=== PATIENT | female | born 1955 | race Caucasian/White ===

== ENCOUNTER 2023-05-06 13:49 | Outpatient (CLI) | payer MEDICARE | END 2023-05-06 23:59 | disposition critical access hospital (66) | LOC: EMS 13:49 | DX: Z04.6 Encounter for general psychiatric examination, requested by authority (principal); R45.851 Suicidal ideations | CPT/HCPCS: A0425; A0429 ==

== ENCOUNTER 2023-05-06 14:08 | Emergency (ER) | payer MEDICARE ==
--- NOTE | 2023-05-06 14:27 | ED Physician Documentation ---
History of Present Illness - Stated complaint Stated Complaint: MHE - Chief complaint Chief Complaint: MHE - Additonal information Additional information: 67-year-old female called EMS and come to the hospital today because she has been feeling down. States that she wants to get back to her baseline level of function. Reportedly she was prescribed meloxicam for arthritis over a month ago. When she began taking it she had severe diarrhea. Therefore she stopped taking the meloxicam and all her other usual medications. Patient states that she was on Wellbutrin, BuSpar and another unknown medication for blood pressure. She denies that she wants to hurt herself or anybody else. On evaluation she is alert though disheveled and has poor hygiene. She endorses tobacco use but no alcohol or illicit drug use. States that she lives alone. States that she does have a home but admits to being transient over the last few years. She has never been seen at [facility] before. Review of Systems Constitutional: denies: Fever Ears: reports: Reviewed and negative Throat: reports: Reviewed and negative Cardiac: reports: Reviewed and negative Respiratory: reports: Reviewed and negative Skin: reports: Reviewed and negative Psychiatric: reports: Depressed. denies: Suicidal, Homicidal, Hallucinations, Delusions, Anxiety Endocrine: reports: Reviewed and negative Immunocompromised: reports: Reviewed and negative PD PAST MEDICAL HISTORY - Present Medications Home Medications: Ambulatory Orders Medication Instructions Recorded Confirmed Apixaban [Eliquis] 2.5 mg PO BID #60 tablet 05/06/23 Buspirone HCl 15 mg PO DAILY 05/06/23 05/06/23 Metoprolol Succinate [Toprol Xl] 25 mg PO DAILY #30 tablet 05/06/23 buPROPion HCL [Bupropion HCl Sr] 150 mg PO BID 05/06/23 05/06/23 buPROPion HCL [Bupropion Xl] 150 mg PO DAILY #30 tab 05/06/23 busPIRone [Buspar] 15 mg PO DAILY #90 tablet 05/06/23 dilTIAZem HCL [Diltiazem 24Hr ER 120 mg PO DAILY #30 tab 05/06/23 ([place])] dilTIAZem HCL [Diltiazem 24Hr ER] 120 mg PO DAILY 05/06/23 05/06/23 - Allergies Allergies/Adverse Reactions: Allergies Allergy/AdvReac Type Severity Reaction Status Date / Time Sulfa (Sulfonamide Allergy Unknown Verified 05/06/23 14:14 Antibiotics) meloxicam AdvReac Unknown Verified 05/06/23 14:14 PD ED PE NORMAL - General General: Alert and oriented X 3, No acute distress. No: Well developed/nourishe d (Appears disheveled poor hygiene) - HEENT HEENT: Atraumatic, Moist mucous membranes - Neck Neck: Supple, no meningeal sign, No adenopathy - Cardiac Cardiac: No murmur. No: RRR (irregularly irregular) - Respiratory Respiratory: No respiratory distress, Clear bilaterally - Abdomen Abdomen: Normal bowel sounds - Derm Derm: Normal color, Warm and dry, No rash - Extremities Extremities: No deformity - Neuro Neuro: Alert and oriented X 3, thermodynamic physicist 2-12 intact Eye Opening: Spontaneous Motor: Obeys Commands Verbal: Oriented GCS Score: 15 - Psych Psych: No: Normal affect (Reports feeling depressed though she engages with this provider easily. Does not desire to be hospitalized. Denies thoughts of self harm to herself or others.) Results - Vitals Vitals: Vital Signs - 24 hr 05/06/23 05/06/23 05/06/23 14:14 16:28 16:54 Temperature 36.4 C L Heart Rate 53 L 105 H 133 H Respiratory 18 20 23 Rate Blood Pressure 154/93 H 130/101 H 144/78 H O2 Saturation 97 98 100 05/06/23 17:55 Temperature Heart Rate 106 H Respiratory 19 Rate Blood Pressure 123/95 H O2 Saturation 98 Oxygen O2 Source Room air - EKG (time done) 1444 EKG releavant findings:: EKG personally interpreted by author of this note. Relevant findings are: Rate: Rate (enter#) (121) Rhythm: Atrial fibrillation Intervals: No: Prolonged QT QRS: Poor R wave progression Ischemia: Non specific changes Compare to prior EKG: Old EKG unavailable Computer interpretation: Agree with computer - Labs Labs: Laboratory Tests 05/06/23 05/06/23 05/06/23 14:35 14:35 14:35 WBC 10.3 RBC 3.69 L Hgb 11.2 L Hct 33.7 L MCV 91.3 MCH 30.4 MCHC 33.2 RDW 13.5 Plt Count 427 MPV 9.7 Neut # (Auto) 8.1 H Lymph # (Auto) 0.9 L [place] # (Auto) 1.0 Eos # (Auto) 0.1 Baso # (Auto) 0.1 Absolute Nucleated RBC 0.00 Nucleated RBC % 0.0 Sodium 140 Potassium 2.4 L* Chloride 100 L Carbon Dioxide 30 Anion Gap 10.0 BUN 39 H Creatinine 1.9 H Estimated GFR (MDRD) 26 L Glucose 114 H Calcium 9.1 Magnesium 1.6 L Total Bilirubin 0.3 AST 12 ALT 15 Alkaline Phosphatase 81 Total Creatine Kinase 74 B-Natriuretic Peptide Total Protein 7.2 Albumin 3.4 Globulin 3.8 Albumin/Globulin Ratio 0.9 L Lipase 7 L TSH 1.00 Salicylates < 1.5 Acetaminophen 0.1 Ethyl Alcohol < 10.0 05/06/23 14:35 WBC RBC Hgb Hct MCV MCH MCHC RDW Plt Count MPV Neut # (Auto) Lymph # (Auto) [place] # (Auto) Eos # (Auto) Baso # (Auto) Absolute Nucleated RBC Nucleated RBC % Sodium Potassium Chloride Carbon Dioxide Anion Gap BUN Creatinine Estimated GFR (MDRD) Glucose Calcium Magnesium Total Bilirubin AST ALT Alkaline Phosphatase Total Creatine Kinase B-Natriuretic Peptide 113 H Total Protein Albumin Globulin Albumin/Globulin Ratio Lipase TSH Salicylates Acetaminophen Ethyl Alcohol PD Medical Decision Making - ED course Complexity details: reviewed results, re-evaluated patient, d/w patient ED course: 67-year-old female presents emergency department requesting help to get back to her baseline health. Historically she has been on BuSpar, buspirone and Diltiazem. 1 month ago she stopped taking all of her medications because when she took methocarbamol or meloxicam it gave her diarrhea. Patient is a poor historian. She states she only has a history of high blood pressure and depression. She appears to have A-fib on the monitor and though diltiazem would have been appropriately prescribed for A-fib she denies any history of this. She also is not on a blood thinner. Here in the emergency department she denied any thoughts of self-harm or harm to herself. She thought it would be helpful if we could represcribe her usual medications but had difficulty getting medications filled because of insurance. She was seen by social work and ultimately we were able to get prescriptions sent to her [facility] pharmacy. Here in the emergency department she does have A-fib with a rate that is variable of 110-130. I did obtain CBC, electrolytes salicylates alcohol and a BNP. Per my interpretation she has a mild anemia with a hemoglobin of 11.2. Her chemistry reveals a potassium of 2.4. Here in the emergency department she was repleted with a total of 75 mill equivalents of potassium. She does have a BUN of 39 creatinine of 1.9 and a GFR of 26. There are no baseline labs for us to compare. Her mag is mildly low at 1.6 but her BNP is 113. Chest x-ray does not show indications of heart failure and there is no peripheral edema. Initially I did give the patient her single dose of diltiazem 120 mg orally and this did not reduce her heart rate. She then received 10 mg of carvedilol IV which slowed her heart rate to 109 but after about an hour or so she was back up to 130. I then repeated the dose at 20 mg IV and gave her 25 mg of Metroprolol succinate orally. Following this her heart rate was more consistently in the low 100s. I discussed the options of admitting versus discharge for A-fib and the patient prefers at this time to be discharged home. She will be started on Eliquis. She reports that she has follow-up with her primary care doctor on the of this month at that time it would be appropriate for her to receive a cardiology referral. She is discharged home with usual emergent return precautions discussed for worsening symptoms. Departure - Departure Disposition: 01 Home, Self Care Clinical Impression: Atrial fibrillation Qualifiers: Atrial fibrillation type: unspecified Qualified Code(s): I48.91 - Unspecified atrial fibrillation CKD (chronic kidney disease) stage 3, GFR 30-59 ml/min Qualifiers: Chronic kidney disease stage 3 subtype: stage 3b (GFR 30-44) Qualified Code(s): N18.32 - Chronic kidney disease, stage 3b Condition: Stable Record reviewed to determine appropriate education?: Yes Instructions: Apixaban oral tablets, Atrial Fibrillation Dc Follow-Up: ALTAGRACIA DUMAS MD [Primary Care Provider] - Prescriptions: buPROPion HCL [Bupropion Xl] 150 mg PO DAILY #30 tab busPIRone [Buspar] 15 mg PO DAILY #90 tablet dilTIAZem HCL [Diltiazem 24Hr ER ([place])] 120 mg PO DAILY #30 tab Apixaban [Eliquis] 2.5 mg PO BID #60 tablet Metoprolol Succinate [Toprol Xl] 25 mg PO DAILY #30 tablet Comments: You have been found to have atrial fibrillation. We have resumed your diltiazem 120 mg daily. We have also added Metroprolol 25 mg daily. Both of these help control your heart rate in atrial fibrillation. You do need to get referral to a repatcher And Dr. Lim should make that referral when you see him on the . I have refilled your buspirone and your bupropion. Because you are in atrial fibrillation, you are at higher risk to have strokes and we have started you on a blood thinner called Eliquis. You will take this twice daily. If you have any falls or trauma, strike your head, develop any sudden severe headache, have black or bloody stools, or have any unexplained bleeding you must return immediately to the ER. Forms: PCP List Discharge Date/Time: 05/06/23 18:29
[2023-05-06 14:43] LABS: BASOPHILS # (AUTO) 0.1 10^3/uL (0.0-0.1); BASOPHILS % (AUTO) 0.6 %; EOSINOPHILS # (AUTO) 0.1 10^3/uL (0.0-0.7); EOSINOPHILS % (AUTO) 1.4 %; HCT - HEMATOCRIT 33.7 % (37.0-47.0); HGB - HEMOGLOBIN 11.2 g/dL (12.0-16.0); LYMPHOCYTES # (AUTO) 0.9 10^3/uL (1.5-3.5); LYMPHOCYTES % (AUTO) 8.6 %; MEAN CORPUSCULAR HEMOGLOBIN 30.4 pg (27.0-31.0); MEAN CORPUSCULAR HGB CONC 33.2 g/dL (32.0-36.0); MEAN CORPUSCULAR VOLUME 91.3 fL (81.0-99.0); MEAN PLATELET VOLUME 9.7 fL (7.9-10.8); MONOCYTES % (AUTO) 10.1 %; NEUTROPHILS # (AUTO) 8.1 10^3/uL (1.5-6.6); NEUTROPHILS % (AUTO) 78.3 %; PLT - PLATELET COUNT 427 10^3/uL (130-450); RED BLOOD COUNT 3.69 10^6/uL (4.20-5.40); RED CELL DISTRIBUTION WIDTH 13.5 % (12.0-15.0); WHITE BLOOD COUNT 10.3 x10^3/uL (4.8-10.8)
[2023-05-06 14:57] LABS: ACETAMINOPHEN 0.1 ug/mL; ALBUMIN 3.4 g/dL (3.2-5.5); CK- CREATINE KINASE 74 IU/L (30-223); ETOH - ETHANOL < 10.0 mg/dL; MAGNESIUM 1.6 mg/dL (1.7-2.3)
[2023-05-06] MEDS ORDERED: diltiaZEM CD 120 MG CAPSULE PO STA (14:59)
[2023-05-06 15:11] LABS: ALBUMIN/GLOBULIN RATIO 0.9 (1.0-2.2); ALKALINE PHOSPHATASE 81 IU/L (42-121); ALT ALANINE AMINOTRANSFERASE 15 IU/L (10-60); AST ASPARTATE AMINOTRANSFERASE 12 IU/L (10-42); BILIRUBIN,TOTAL 0.3 mg/dL (0.2-1.0); BUN - BLOOD UREA NITROGEN 39 mg/dL (6-20); CALCIUM 9.1 mg/dL (8.5-10.3); CARBON DIOXIDE - CO2 30 mmol/L (21-32); CHLORIDE 100 mmol/L (101-111); CREATININE 1.9 mg/dL (0.6-1.3); GFR - MDRD 26 (>89); GLUCOSE 114 mg/dL (74-104); SODIUM 140 mmol/L (135-145); TOTAL PROTEIN 7.2 g/dL (6.4-8.9)
[2023-05-06 15:12] LABS: LIPASE 7 U/L (11-82); POTASSIUM 2.4 mmol/L (3.5-4.5); SALICYLATE < 1.5 mg/dL
[2023-05-06] MEDS ORDERED: diltiaZEM INJ 5 MG/ML VIAL IVP STA (15:42)
[2023-05-06] MEDS ORDERED: POTASSIUM BICARB 25 MEQ TABLET PO STA ×2 (15:42→17:12)
[2023-05-06] MEDS ORDERED: NICOTINE 14 MG PATCH TOP STA (16:35)
[2023-05-06] MEDS: diltiaZEM INJ 5 MG/ML VIAL IVP STA ×3 (17:03→17:04)
[2023-05-06] MEDS ORDERED: diltiaZEM INJ 5 MG/ML VIAL ONE (17:09)
[2023-05-06] MEDS ORDERED: METOPROLOL SUCCINATE 25 MG TABLET PO STA (17:12)
--- NOTE | 2023-05-06 17:43 | XRAY Report ---
PROCEDURE: Chest 1 View X-Ray INDICATIONS: a fib TECHNIQUE: One view of the chest was acquired. COMPARISON: None. FINDINGS: Surgical changes and devices: Left IJ Mediport. Lungs and pleura: Mild kyphosis. Patient chin obscures medial lung apices. Mild horizontal scarring at the lateral left lung base. The visible lung brandon are otherwise clear. Mediastinum: No significant central venous congestion. Mild cardiomegaly. Normal aortic contour. Bones and chest wall: No suspicious bony lesions. Overlying soft tissues appear unremarkable. IMPRESSION: 1. Mild cardiomegaly without radiographic findings of acute CHF. Correlate with BNP. Reviewed by: Krupa Phan MD on 05/06/2023 5:42 PM PDT Approved by: Krupa Phan MD on 05/06/2023 5:42 PM PDT Station ID: [id number]
[2023-05-06 17:58] VITALS: BP 123/95
[2023-05-07] MEDS ORDERED: METOPROLOL SUCCINATE 25 MG TABLET PO SCH (09:00)
== END 2023-05-06 18:29 | disposition home or self-care (01) ==
LOC: ED 14:08
DX: I48.91 Unspecified atrial fibrillation (principal); E87.6 Hypokalemia; N18.32 Chronic kidney disease, stage 3b
CPT/HCPCS: 36415; 71045; 80053; 80307; 82550; 83690; 83735; 83880; 84443; 85025; 93005; 96374; 96376; 99284; A9270; G0480; 80320; 80329

== ENCOUNTER 2023-05-31 17:52 | Outpatient (CLI) | payer MEDICARE | END 2023-05-31 23:59 | disposition critical access hospital (66) | LOC: EMS 17:52 | DX: R45.851 Suicidal ideations (principal) | CPT/HCPCS: A0425; A0429 ==

== ENCOUNTER 2023-05-31 17:58 | Emergency (ER) | payer MEDICARE ==
[2023-05-31 19:04] LABS: BASOPHILS # (AUTO) 0.1 10^3/uL (0.0-0.1); BASOPHILS % (AUTO) 0.4 %; EOSINOPHILS # (AUTO) 0.1 10^3/uL (0.0-0.7); EOSINOPHILS % (AUTO) 0.6 %; HGB - HEMOGLOBIN 10.5 g/dL (12.0-16.0); LYMPHOCYTES # (AUTO) 0.9 10^3/uL (1.5-3.5); LYMPHOCYTES % (AUTO) 7.3 %; MEAN CORPUSCULAR HEMOGLOBIN 30.6 pg (27.0-31.0); MEAN CORPUSCULAR HGB CONC 32.8 g/dL (32.0-36.0); MEAN CORPUSCULAR VOLUME 93.3 fL (81.0-99.0); MEAN PLATELET VOLUME 11.2 fL (7.9-10.8); MONOCYTES # (AUTO) 1.2 10^3/uL (0.0-1.0); MONOCYTES % (AUTO) 9.5 %; NEUTROPHILS % (AUTO) 81.8 %; PLT - PLATELET COUNT 316 10^3/uL (130-450); RED BLOOD COUNT 3.43 10^6/uL (4.20-5.40); RED CELL DISTRIBUTION WIDTH 13.9 % (12.0-15.0); WHITE BLOOD COUNT 12.3 x10^3/uL (4.8-10.8)
[2023-05-31 19:19] LABS: THYROID STIMULATING HORMONE 1.39 uIU/mL (0.34-5.60)
[2023-05-31 19:34] LABS: ACETAMINOPHEN 0.1 ug/mL; ALBUMIN 3.5 g/dL (3.2-5.5); CK- CREATINE KINASE 83 IU/L (30-223); ETOH - ETHANOL < 10.0 mg/dL; MAGNESIUM 1.4 mg/dL (1.7-2.3)
[2023-05-31 19:35] LABS: POTASSIUM 2.4 mmol/L (3.5-4.5)
[2023-05-31 19:36] LABS: ALBUMIN/GLOBULIN RATIO 0.9 (1.0-2.2); ALKALINE PHOSPHATASE 99 IU/L (42-121); ALT ALANINE AMINOTRANSFERASE 15 IU/L (10-60); AST ASPARTATE AMINOTRANSFERASE 17 IU/L (10-42); BILIRUBIN,TOTAL 0.3 mg/dL (0.2-1.0); BUN - BLOOD UREA NITROGEN 17 mg/dL (6-20); CALCIUM 9.2 mg/dL (8.5-10.3); CARBON DIOXIDE - CO2 27 mmol/L (21-32); CHLORIDE 97 mmol/L (101-111); CREATININE 1.5 mg/dL (0.6-1.3); GFR - MDRD 34 (>89); GLUCOSE 107 mg/dL (74-104); SALICYLATE < 1.5 mg/dL; SODIUM 136 mmol/L (135-145); TOTAL PROTEIN 7.6 g/dL (6.4-8.9)
[2023-05-31 19:38] LABS: LIPASE 4 U/L (11-82)
[2023-05-31] MEDS ORDERED: POTASSIUM CHLORIDE 20 MEQ/15 ML UDC PO STA (20:08)
[2023-05-31] MEDS ORDERED: POTASSIUM CHLOR 10 MEQ/100 ML 10 MEQ/100 ML BAG IV STA (20:08)
[2023-05-31] MEDS ORDERED: MAGNESIUM SULFATE 2 GRAM 2 GM/50 ML BAG IV ONE (20:09)
[2023-05-31] MEDS ORDERED: ONDANSETRON 4 MG/2 ML VIAL IVP STA (20:15)
--- NOTE | 2023-05-31 20:19 | ED Physician Documentation ---
PD HPI MHE - Stated complaint Stated Complaint: SI - Chief complaint Chief Complaint: MHE - History obtained from History obtained from: Patient - Additional information Additional information: 67yF with pmh depression p/w anxiety and passive SI X 5-6 months with associated nausea and decreased appetite. patient states she had been on antidepressants but then added meloxicam and had trouble with med interactions and stopped her antidepressants. denies active plan. denies HI or AVH. denies fever, abd pain, urinary sx. 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 : None HEENT: None Psych: Depression, Anxiety, ADD/ADHD Musculoskeletal: Osteoarthritis Derm: None - Past Surgical History Past Surgical History: Yes General: Cholecystectomy Ortho: Knee replacement /LIQUID NATURAL GAS PLANT OPERATOR: Mastectomy HEENT: Cataracts - Present Medications Home Medications: Ambulatory Orders Medication Instructions Recorded Confirmed Apixaban [Eliquis] 2.5 mg PO BID #60 tablet 05/06/23 Buspirone HCl 15 mg PO DAILY 05/06/23 05/06/23 Metoprolol Succinate [Toprol Xl] 25 mg PO DAILY #30 tablet 05/06/23 buPROPion HCL [Bupropion HCl Sr] 150 mg PO BID 05/06/23 05/06/23 buPROPion HCL [Bupropion Xl] 150 mg PO DAILY #30 tab 05/06/23 busPIRone [Buspar] 15 mg PO DAILY #90 tablet 05/06/23 dilTIAZem HCL [Diltiazem 24Hr ER 120 mg PO DAILY #30 tab 05/06/23 ([place])] dilTIAZem HCL [Diltiazem 24Hr ER] 120 mg PO DAILY 05/06/23 05/06/23 - Allergies Allergies/Adverse Reactions: Allergies Allergy/AdvReac Type Severity Reaction Status Date / Time Sulfa (Sulfonamide Allergy Unknown Verified 05/31/23 18:03 Antibiotics) meloxicam AdvReac Unknown Verified 05/31/23 18:03 - Social History Does the pt smoke?: Yes Smoking Status: Current every day smoker Does the pt drink ETOH?: No Does the pt have substance abuse?: No PD ED PE NORMAL - Vitals Vital signs reviewed: Yes - General General: Alert and oriented X 3, No acute distress, Well developed/nourished - HEENT HEENT: Atraumatic, PERRL, EOMI, Moist mucous membranes, Pharynx benign - Neck Neck: Supple, no meningeal sign - Cardiac Cardiac: RRR - Respiratory Respiratory: No respiratory distress, Clear bilaterally - Abdomen Abdomen: Non tender, Non distended - Derm Derm: Normal color, Warm and dry - Extremities Extremities: No deformity - Neuro Neuro: Alert and oriented X 3 - Psych Psych: Other (anxious, tearful affect) Results - Vitals Vitals: Vital Signs - 24 hr 05/31/23 18:00 Temperature 36.0 C L Heart Rate 56 L Respiratory 12 Rate Blood Pressure 140/80 H O2 Saturation 95 Oxygen O2 Source Room air - EKG (time done) 2013 EKG releavant findings:: EKG personally interpreted by author of this note. Relevant findings are: Rate: Rate (enter#) (100) Rhythm: NSR, Other (PACs in couplets) [place]: Normal Intervals: Normal DC QRS: Normal Ischemia: Normal ST segments Computer interpretation: Disagree with computer (no st depression or GALEN) - Labs Labs: Laboratory Tests 05/31/23 05/31/23 18:43 18:43 WBC 12.3 H RBC 3.43 L Hgb 10.5 L Hct 32.0 L MCV 93.3 MCH 30.6 MCHC 32.8 RDW 13.9 Plt Count 316 MPV 11.2 H Neut # (Auto) 10.0 H Lymph # (Auto) 0.9 L [place] # (Auto) 1.2 H Eos # (Auto) 0.1 Baso # (Auto) 0.1 Absolute Nucleated RBC 0.00 Nucleated RBC % 0.0 Sodium 136 Potassium 2.4 L* Chloride 97 L Carbon Dioxide 27 Anion Gap 12.0 BUN 17 Creatinine 1.5 H Estimated GFR (MDRD) 34 L Glucose 107 H Calcium 9.2 Magnesium 1.4 L Total Bilirubin 0.3 AST 17 ALT 15 Alkaline Phosphatase 99 Total Creatine Kinase 83 Total Protein 7.6 Albumin 3.5 Globulin 4.1 Albumin/Globulin Ratio 0.9 L Lipase 4 L TSH 1.39 Salicylates < 1.5 Acetaminophen 0.1 Ethyl Alcohol < 10.0 PD Medical Decision Making - ED course ED course: 67yF presents to the ED with SI but no plan. also with chronic nausea. medical workup including cbc, abdominal panel, tox labs, thyroid studies, ekg ordered. She has some leukocytosis with wbc 12.3. stable chronic kidney disease with cre 1.5, down from baseline 1.9 8/2. K 2.4 today. ekg shows PACs in couplets likely related to electrolyte imbalance. patient states she's had issues with potassium in the past but they were just watching it. does not know the cause and is not on hctz to her knowledge. patient is anemic today with hb 10.5, down from 11 on previous labs. denies rectal bleeding. declined rectal exam. suspect anemia is 2/2 malnutrition since pt states she's eating a very limited diet. Plan to replete potassium orally and IV as well as mag which was borderline low. In terms of her depression she denies active plan and contracts for safety. we will encourage restarting SSRI with her pcp. Return precautions discussed. Departure - Departure
[2023-05-31] MEDS ORDERED: POTASSIUM CHLOR 10 MEQ/100 ML 10 MEQ/100 ML BAG IV SCH (22:00)
[2023-05-31] MEDS ORDERED: ACETAMINOPHEN 325 MG TABLET PO STA (22:26)
[2023-06-01 00:25] LABS: MUDS CUTOFF CONCENTRATIONS CUTOFF CONC BELOW:
[2023-06-01 00:26] LABS: BILIRUBIN,URINE NEGATIVE (NEGATIVE); GLUCOSE, URINE (UA) NEGATIVE (NEGATIVE); KETONES,URINE (UA) NEGATIVE (NEGATIVE); LEUKOCYTE ESTERASE, URINE LARGE (NEGATIVE); NITRITE,URINE POSITIVE (NEGATIVE); OCCULT BLOOD,URINE TRACE-INTA (NEGATIVE); PROTEIN,URINE 30 mg/dL (NEGATIVE); UROBILINOGEN,URINE 0.2 (NORMAL) E.U./dL (NORMAL)
[2023-06-01 00:27] LABS: CLARITY,URINE HAZY (CLEAR)
[2023-06-01 00:38] LABS: AMPHETAMINE SCREEN,URINE NEGATIVE (NEGATIVE); BARBITURATE SCREEN,UR NEGATIVE (NEGATIVE); BENZODIAZEPINES SCREEN, URINE NEGATIVE (NEGATIVE); COCAINE SCREEN URINE NEGATIVE (NEGATIVE); METHADONE SCREEN, URINE NEGATIVE (NEGATIVE); METHAMPHETAMINES SCREEN, URINE NEGATIVE (NEGATIVE); OPIATE SCREEN, URINE NEGATIVE (NEGATIVE); OXYCODONE SCREEN, URINE NEGATIVE (NEGATIVE); PROPOXYPHENE SCREEN, URINE NEGATIVE (NEGATIVE); THC CANNABINOID SCREEN, URINE NEGATIVE (NEGATIVE); TRICYCLIC ANTIDEPRESSANT,URINE NEGATIVE (NEGATIVE)
[2023-06-01 00:45] LABS: BACTERIA,URINE Many /HPF (None Seen); RBC,URINE 0-5 /HPF (0-5); SQUAMOUS EPITHELIAL CELL,UR NONE SEEN (<= Few)
[2023-06-01] MEDS ORDERED: POTASSIUM CHLOR 10 MEQ/100 ML 10 MEQ/100 ML BAG IV STA ×3 (00:58→04:21)
[2023-06-01] MEDS ORDERED: POTASSIUM CHLORIDE 20 MEQ/15 ML UDC PO STA (00:58)
[2023-06-01] MEDS ORDERED: SODIUM CHLORIDE 0.9% 500 ML IV STA (01:13)
[2023-06-01] MEDS ORDERED: ONDANSETRON 4 MG/2 ML VIAL IVP STA (01:14)
[2023-06-01] MEDS ORDERED: ACETAMINOPHEN 325 MG TABLET PO STA (04:52)
--- NOTE | 2023-06-01 14:53 | ED Physician Documentation ---
ED Addendum - Addendum Addendum: 06/01/23 14:49 Hyperkalemia improved, still hypokalemic but patient is asymptomatic. Patient has tolerated po, now sleeping comfortably in bed. Patient states that she has her medications that she will continue to take and will follow with her primary care physician. She was counseled on different potassium-rich foods she may eat to increase her potassium at home.
[2023-06-01 15:12] VITALS: BP 128/70; O2SAT 94
--- NOTE | 2023-06-03 17:02 | ED Physician Documentation ---
ED Addendum - Addendum Addendum: 06/03/23 17:01 cx reviewed, per initial note no sx uti
== END 2023-06-01 15:23 | disposition home or self-care (01) ==
LOC: ED 17:58
DX: F41.9 Anxiety disorder, unspecified (principal); F32.A Depression, unspecified; E87.6 Hypokalemia; D64.9 Anemia, unspecified; E83.42 Hypomagnesemia; N18.9 Chronic kidney disease, unspecified; F17.200 Nicotine dependence, unspecified, uncomplicated
CPT/HCPCS: 36415; 80053; 80306; 80307; 81001; 82550; 83690; 83735; 84132; 84443; 85025; 87086; 87181; 87635; 93005; 96365; 96366; 96367; 96368; 96375; 96376; 99284; A9270; G0480; 80320; 80329; 81003

== ENCOUNTER 2023-07-14 09:05 | Outpatient (CLI) | payer MEDICARE | END 2023-07-14 23:59 | disposition home or self-care (01) | LOC: EMS 09:05 | DX: R53.1 Weakness (principal); R62.7 Adult failure to thrive; R32 Unspecified urinary incontinence; R15.9 Full incontinence of feces; R63.8 Other symptoms and signs concerning food and fluid intake; Z74.1 Need for assistance with personal care; Z58.89 Other problems related to physical environment | CPT/HCPCS: A0425; A0427 ==

== ENCOUNTER 2023-07-14 09:09 | Inpatient (IN) | payer MEDICARE ==
--- NOTE | 2023-07-14 09:29 | ED Physician Documentation ---
History of Present Illness - Stated complaint Stated Complaint: GLF - History obtained from History obtained from: Patient - Additonal information Additional information: Patient is a 68-year-old female With prior history of atrial fibrillation (not compliant with medications recently prescribed for A-fib), mental health disorder presenting for evaluation of a ground-level fall which occurred at home overnight. Patient states that she was walking with her walker when she lost her strength and fell down to the ground. She did not hit her head or have LOC. She states that she was too weak to get back up but was able to crawl to call for EMS this morning. She states that she has been feeling weak for several days and has had a poor appetite as she does not have energy to cook for herself. EMS stated that her house appeared to be in a state of disarray with and moldy food.Patient was recently seen here for mental health related concerns and also noted at that time to be in A-fib. She was sent with prescriptions for diltiazem and Eliquis but did not appear to fill these prescriptions and is currently not on a blood thinner. Review of Systems Constitutional: denies: Fever Cardiac: denies: Chest pain / pressure Respiratory: denies: Dyspnea GI: denies: Abdominal Pain Neurologic: reports: Generalized weakness. 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 : None HEENT: None Psych: Depression, Anxiety, ADD/ADHD Musculoskeletal: Osteoarthritis Derm: None - Past Surgical History Past Surgical History: Yes General: Cholecystectomy Ortho: Knee replacement /CUT OFF OPERATOR SCORER: Mastectomy, Other HEENT: Cataracts - Present Medications Home Medications: Ambulatory Orders Medication Instructions Recorded Confirmed Buspirone HCl 15 mg PO BID 05/06/23 07/14/23 buPROPion HCL [Bupropion HCl Sr] 150 mg PO BID 05/06/23 07/14/23 PARoxetine [Paxil] 40 mg PO HS 07/14/23 07/14/23 dilTIAZem HCL [Diltiazem 24Hr ER 120 mg PO 07/14/23 ([place])] - Allergies Allergies/Adverse Reactions: Allergies Allergy/AdvReac Type Severity Reaction Status Date / Time Sulfa (Sulfonamide Allergy Unknown Verified 05/31/23 18:03 Antibiotics) meloxicam AdvReac Unknown Verified 05/31/23 18:03 - Social History Does the pt smoke?: Yes Smoking Status: Current every day smoker Does the pt drink ETOH?: No Does the pt have substance abuse?: No - Immunizations Immunizations are current?: Yes - POLST Patient has POLST: No PD ED PE NORMAL - General General: Alert and oriented X 3, No acute distress, Well developed/nourished - HEENT HEENT: Atraumatic, Moist mucous membranes, Pharynx benign - Neck Neck: Supple, no meningeal sign, No bony TTP - Cardiac Cardiac: Other (Irregular rhythm, regular rate) - Respiratory Respiratory: No respiratory distress, Clear bilaterally - Abdomen Abdomen: Normal bowel sounds, Soft, Non tender, Non distended - Derm Derm: Warm and dry - Extremities Extremities: No deformity, No tenderness to palpate - Neuro Neuro: Alert and oriented X 3, drawing frame tender 2-12 intact, No motor deficit, No sensory deficit, Normal speech Results - Vitals Vitals: Vital Signs - 24 hr 07/14/23 07/14/23 07/14/23 09:25 10:41 11:11 Temperature 35.9 C L Heart Rate 140 H 109 H 91 Respiratory 18 20 Rate Blood Pressure 114/90 H 116/85 H O2 Saturation 98 96 07/14/23 12:24 Temperature Heart Rate 84 Respiratory 18 Rate Blood Pressure O2 Saturation 97 Oxygen O2 Source Room air - EKG (time done) 0943 EKG releavant findings:: EKG personally interpreted by author of this note. Relevant findings are: Rate 88, normal sinus rhythm, no STEMI, - Labs Labs: Laboratory Tests 07/14/23 07/14/23 07/14/23 09:32 09:32 10:20 WBC 32.6 H RBC 4.55 Hgb 13.6 Hct 41.6 MCV 91.4 MCH 29.9 MCHC 32.7 RDW 15.0 Plt Count 414 MPV 10.6 Neut # (Auto) TRAFFIC RATE CLERK Lymph # (Auto) TRAFFIC RATE CLERK [place] # (Auto) TRAFFIC RATE CLERK Eos # (Auto) TRAFFIC RATE CLERK Baso # (Auto) TRAFFIC RATE CLERK Absolute Nucleated RBC TRAFFIC RATE CLERK [place] % (Manual) Not Reportable Abnorm Lymph % (Manual) Not Reportable Nucleated RBC % TRAFFIC RATE CLERK Neutrophils # (Manual) Not Reportable Lymphocytes # (Manual) Not Reportable Monocytes # (Manual) Not Reportable Eosinophils # (Manual) Not Reportable Basophils # (Manual) Not Reportable Sodium 141 Potassium 2.6 L Chloride 94 L Carbon Dioxide 28 Anion Gap 19.0 H BUN 34 H Creatinine 2.6 H Estimated GFR (MDRD) 18 L Glucose 191 H Lactic Acid 1.7 Calcium 9.3 Magnesium 1.5 L Total Bilirubin 0.8 AST 14 ALT 11 Alkaline Phosphatase 91 Total Creatine Kinase 32 Total Protein 6.8 Albumin 3.6 Globulin 3.2 Albumin/Globulin Ratio 1.1 Lipase 12 PD Medical Decision Making - ED course Complexity details: reviewed results, re-evaluated patient, d/w patient ED course: Patient is a 68-year-old female presenting for evaluation of a ground-level fall and generalized weakness. She denies syncope. Does not appear that she hit her head but she may not be a reliable historian thus a head CT was obtained to evaluate for possible intracranial hemorrhage which is negative. Chest x-ray which I reviewed is negative for consolidation. Labs including CBC, chemistry and urinalysis were reviewed. Patient has elevated white count of 32,000 which appears to be new for her. Potassium of 2.6 and creatinine also of 2.6. The patient does have a history of hypokalemia on prior visits but renal function appears to be worse today.Urine is concerning for infection and patient will be started on IV antibiotics. Given renal insufficiency, elevated white count and electrolyte abnormalities discussed the case with admitting hospitalist who will admit for further management. Departure - Departure Disposition: [facility] DC/Xfer Clinical Impression: Hypokalemia, RISA (acute kidney injury), Generalized weakness, Leukocytosis, UTI (urinary tract infection) Condition: Good Discharge Date/Time: 07/14/23 14:20
[2023-07-14 09:38] LABS: BASOPHILS % (AUTO) 0.3 %; HCT - HEMATOCRIT 41.6 % (37.0-47.0); HGB - HEMOGLOBIN 13.6 g/dL (12.0-16.0); LYMPHOCYTES % (AUTO) 1.8 %; MEAN CORPUSCULAR HEMOGLOBIN 29.9 pg (27.0-31.0); MEAN CORPUSCULAR HGB CONC 32.7 g/dL (32.0-36.0); MEAN CORPUSCULAR VOLUME 91.4 fL (81.0-99.0); MEAN PLATELET VOLUME 10.6 fL (7.9-10.8); MONOCYTES % (AUTO) 2.4 %; NEUTROPHILS % (AUTO) 94.8 %; PLT - PLATELET COUNT 414 10^3/uL (130-450); RED BLOOD COUNT 4.55 10^6/uL (4.20-5.40); WHITE BLOOD COUNT 32.6 x10^3/uL (4.8-10.8)
--- NOTE | 2023-07-14 09:38 | XRAY Report ---
PROCEDURE: Chest 1 View X-Ray INDICATIONS: weak TECHNIQUE: One view of the chest was acquired. COMPARISON: May 06, 2023 FINDINGS: Surgical changes and devices: A left portacatheter terminates in the upper SVC. Lungs and pleura: Low lung volumes. No dense consolidation or pleural effusion. Mediastinum: Borderline large heart. Bones and chest wall: Degenerative changes, particularly of the left shoulder. IMPRESSION: No dense consolidation or pleural effusion. Low lung volumes on portable radiography, limiting evalua tion. Left hand projects over the left chest, which could obscure evaluation. Reviewed by: Yovani Corona MD on 07/14/2023 9:37 AM PDT Approved by: Yovani Corona MD on 07/14/2023 9:37 AM PDT Station ID: [id number]
[2023-07-14 09:51] LABS: ALBUMIN 3.6 g/dL (3.2-5.5); MAGNESIUM 1.5 mg/dL (1.7-2.3)
[2023-07-14 09:53] LABS: ALBUMIN/GLOBULIN RATIO 1.1 (1.0-2.2); BILIRUBIN,TOTAL 0.8 mg/dL (0.2-1.0); CALCIUM 9.3 mg/dL (8.5-10.3); CREATININE 2.6 mg/dL (0.6-1.3); POTASSIUM 2.6 mmol/L (3.5-4.5); TOTAL PROTEIN 6.8 g/dL (6.4-8.9)
[2023-07-14] MEDS ORDERED: MAGNESIUM SULFATE 2 GRAM 2 GM/50 ML BAG IV ONE (10:07)
[2023-07-14] MEDS ORDERED: SODIUM CHLORIDE 0.9% 1,000 ML IV STA (10:07)
[2023-07-14] MEDS ORDERED: POTASSIUM CHLORIDE 20 MEQ TABLET PO STA (10:08)
--- NOTE | 2023-07-14 11:03 | CT Report ---
PROCEDURE: HEAD WO INDICATIONS: GLF/weak/confused TECHNIQUE: Noncontrast 4.5 mm thick angled axial sections acquired from the foramen magnum to the vertex. For r adiation dose reduction, the following was used: automated exposure control, adjustment of mA and/or kV according to patient size. COMPARISON: None. FINDINGS: Image quality: Good CSF spaces: Basal cisterns are patent. Lateral ventricles are symmetric. Volume: Vascular calcifications. Periventricular white matter disease is commonly seen with chronic m icroangiopathy. Volume loss is present. These findings are moderate. Ventriculomegaly, slightly great er than expected for degree of volume loss, correlate for NPH symptoms. Brain: No intracranial hemorrhage. Morel-white differentiation is grossly maintained. Craniofacial structures: No displaced fracture. Sinuses are clear. Orbits are intact. IMPRESSION: No acute intracranial abnormality. Chronic findings as above. Reviewed by: Yovani Corona MD on 07/14/2023 11:02 AM PDT Approved by: Yovani Corona MD on 07/14/2023 11:02 AM PDT Station ID: [id number]
[2023-07-14] MEDS ORDERED: oxyCODONE 5 MG TABLET PO PRN (12:26)
[2023-07-14] MEDS ORDERED: ACETAMINOPHEN 325 MG TABLET PO PRN (12:26)
[2023-07-14] MEDS ORDERED: SODIUM CHLORIDE FLUSH 0.9% 10 ML SYRINGE IVP PRN (12:26)
[2023-07-14 12:54] LABS: GLUCOSE, URINE (UA) NEGATIVE (NEGATIVE); KETONES,URINE (UA) 15 mg/dL (NEGATIVE); LEUKOCYTE ESTERASE, URINE SMALL (NEGATIVE); NITRITE,URINE NEGATIVE (NEGATIVE); OCCULT BLOOD,URINE LARGE (NEGATIVE); PROTEIN,URINE >=300 mg/dL (NEGATIVE); UROBILINOGEN,URINE 0.2 (NORMAL) E.U./dL (NORMAL)
[2023-07-14 12:58] LABS: BILIRUBIN,URINE MODERATE (NEGATIVE); CLARITY,URINE CLOUDY (CLEAR); ICTOTEST,URINE POSITIVE
[2023-07-14 13:11] LABS: WBC,URINE >25 /HPF (0-5)
[2023-07-14 13:12] LABS: BACTERIA,URINE Many /HPF (None Seen); SQUAMOUS EPITHELIAL CELL,UR RARE Squamous (<= Few); WBC CLUMPS,URINE PRESENT
[2023-07-14] MEDS ORDERED: cefTRIAXone 1 GM in SODIUM CHLORIDE 0.9% MINIBAG 100 ML IV STA (13:20)
[2023-07-14] MEDS: SODIUM CHLORIDE 0.9% 1,000 ML IV SCH (15:18)
[2023-07-14 15:28] LABS: CALCIUM 9.2 mg/dL (8.5-10.3); CREATININE 2.7 mg/dL (0.6-1.3); POTASSIUM 2.7 mmol/L (3.5-4.5)
--- NOTE | 2023-07-14 15:53 | HISTORY & PHYSICAL EXAMINATION ---
Chief Complaint - Chief Complaint Chief Complaint: Fall from ground level History of Present Illness - Admitted From Admitted From:: ER - History Obtained From Records Reviewed: EMR/Faxed records from [facility] History obtained from: Patient - History of Present Illness HPI Comment/Other: Patient is a 68-year-old female With prior history of atrial fibrillation (not compliant with medications recently prescribed for A-fib), mental health disorder presenting for evaluation of a ground-level fall which occurred at home overnight. Patient states that she was walking with her walker when she lost her strength and fell down to the ground. She did not hit her head or have LOC. She states that she was too weak to get back up but was able to crawl to call for EMS this morning. She states that she has been feeling weak for several days and has had a poor appetite as she does not have energy to cook for herself. EMS stated that her house appeared to be in a state of disarray with and moldy food. Patient was recently seen here for mental health related concerns and also noted at that time to be in A-fib. She was sent with prescriptions for diltiazem and Eliquis but did not appear to fill these prescriptions and is currently not on a blood thinner. Pt has not been able to hold any food down for the past couple months, anything she eats she ends up vomiting it back up with the most recent case being yesterday morning where she vomited a couple times after breakfast. She has had a weight loss of 35 pounds and an increase in generalized fatigue in the past couple months due to her not being able to eat. She has noticed that she has needed to get up in the middle of the night to urinate 1-2 times a night. Pt denies any chest pain, fever, chills, blood or coffee ground material in emesis, changes in bowel habits, dysuria, increase in frequency, urgancy or blood in urine. History - Past Medical History Cardiovascular: reports: Hypertension, Atrial fibrillation (Currently does not take any medication for it as "her doctor didn't prescribe her any" ) Respiratory: reports: COPD, Sleep apnea Neuro: reports: None Endocrine/Autoimmune: reports: None GI: reports: None, Hemorrhoids [employer]ER: reports: None : reports: None HEENT: reports: None Psych: reports: Depression, Anxiety, ADD/ADHD Musculoskeletal: reports: Osteoarthritis Derm: reports: None MRSA Hx?: Yes Other Past Medical History: Pt states she had MRSA 5 years ago - Past Surgical History General: reports: Cholecystectomy Ortho: reports: Knee replacement /[employer]CH[employer]ICAL OFFICER: reports: Mastectomy, Other HEENT: reports: Cataracts - Family & Social History Family History: Mother: (Mother from Cancer, Father from Sleep Apnia ), Cancer, Father: , Brother: Alive and Well, Seizure Disorder Living arrangement: At home Living Situation: Alone Social History Notes: Pt lives at home alone and preforms ADLs on her own with difficulty. She states that she would like someone to come and help her. - Substance History Use: Uses substance without health or social issues: Tobacco (States that she quit 1 month ago ) Tobacco Details: Cigarettes - POLST Patient has POLST: No Meds/Allgy - Home Medications Home Medications: Ambulatory Orders Medication Instructions Recorded Confirmed Buspirone HCl 15 mg PO BID 05/06/23 07/14/23 buPROPion HCL [Bupropion HCl Sr] 150 mg PO BID 05/06/23 07/14/23 PARoxetine [Paxil] 40 mg PO HS 07/14/23 07/14/23 dilTIAZem HCL [Diltiazem 24Hr ER 120 mg PO DAILY 07/14/23 07/14/23 ([place])] - Allergies Allergies/Adverse Reactions: Allergies Allergy/AdvReac Type Severity Reaction Status Date / Time Sulfa (Sulfonamide Allergy Unknown Verified 05/31/23 18:03 Antibiotics) meloxicam AdvReac Unknown Verified 05/31/23 18:03 Review of Systems - Constitutional Constitutional: reports: Fatigue, Weakness, Poor appetite, Weight loss (35 pounds in the past couple months). denies: Fever, Chills, Night sweats - Eyes Eyes: denies: Pain, Vision loss - Ears, Nose & Throat Ears, Nose & Throat: denies: Ear pain, Hearing loss, Vertigo - Cardiovascular Cariovascular: denies: Irregular heart rate, Palpitations, Chest pain, Lightheadedness, Syncope - Respiratory Respiratory: denies: Cough - Gastrointestinal Gastrointestinal: reports: Nausea, Vomiting. denies: Abdominal pain, Constipation, Diarrhea, Change in bowel habits, Black stools, Bloody stools, Everardo blood emesis, Coffee grounds emesis - Genitourinary Genitourinary: reports: Nocturia. denies: Dysuria, Frequency, Urgency, Hematuria - Musculoskeletal Musculoskeletal: denies: Muscle pain, Stiffness - Integumentary Integumentary: denies: Rash, Lesions - Neurological Neurological: reports: Abnormal gait (Shuffles) - Psychiatric Psychiatric: reports: Depression, Anxiety, Suicidal (Does not have a plan in place) - Endocrine Endocrine: reports: Polydypsia. denies: Polyuria, Polyphagia - Hematologic/Lymphatic Hematologic/Lymphatic: denies: Blood clots Prior Level of Functionality: Pt lives alone and preforms ADLs on her own. States that she would like some help though. Exam - Vital Signs Reviewed Vital Signs: Yes Vital Signs: Vital Signs x48h Temp Pulse Pulse Pulse Resp BP BP 07/14/23 14:30 84 07/14/23 14:26 36.6 C 85 20 128/83 H 07/14/23 13:54 36.8 C 114 H 17 131/97 H 07/14/23 12:24 84 18 07/14/23 11:11 91 20 116/85 H 07/14/23 10:41 109 H 07/14/23 09:25 35.9 C L 140 H 18 114/90 H BP Pulse Ox 07/14/23 14:30 128/83 H 07/14/23 14:26 99 07/14/23 13:54 100 07/14/23 12:24 97 07/14/23 11:11 96 07/14/23 10:41 07/14/23 09:25 98 - Physical Exam General Appearance: positive: Alert, Anxious, Other (Pt has a disheveled appearance) Eyes Bilateral: positive: Normal inspection, PERRL, EOMI ENT: positive: ENT inspection nml Neck: positive: Nml inspection, No JVD Respiratory: positive: Chest non-tender, No respiratory distress, Other (diminished breath sounds) Cardiovascular: positive: Regular rate & rhythm Peripheral Pulses: positive: 1+ (Pedal Pulses) Abdomen: positive: Non-tender, Nml bowel sounds Back: positive: Nml inspection Skin: positive: Color nml, No rash, Warm, Dry Extremities: positive: Non-tender, No pedal edema Neurologic/Psychiatric: positive: Oriented x3, Motor nml (Shuffles her feet when walking and has to be qued to waste picker her feet), Other (delayed with her answers and is not a reliable source of information based the discrepancies of her medical history she has given and the medical history found on her chats) Sepsis Event Note (H) - Evaluation Current Stage of Sepsis: Ruled out Conclusion/Plan - Problem List (1) Leukocytosis Conclusion/Plan: Pt presented to the ED from a fall at ground level. Upon getting her lab work back she was found to have a WBC of 32.6. The patient also has a positive UA leading to a diagnosis of UTI, however with a count of 32.6 there is suspicion that might be something else to drive her WBC to such a high number. She had a chest X-ray done which came back with no significant findings, see report for more detail. Plan: Continue to monitor her WBC count with daily CBC draws and see how it reacts to the treatment of her UTI. (2) UTI (urinary tract infection) Conclusion/Plan: Pt came in for a ground level fall and upon getting labs drawn up it was found that she had a WBC count of 32.6, and her UA came back with >25 WBC and many prashant teria. Plan: Recieved 1g of Ceftriaxone in ED, recieve another dose of Ceftriaxone 1g tomorrow 07/15 (3) RISA (acute kidney injury) Conclusion/Plan: Pt labs showed RISA with a Cr of 2.7, BUN of 34 and a GFR of 17. This can be due to the severe protein malnutrition and dehydration that she has because of the inability to keep food down and vomiting over the past couple months. Plan: Continue hydration via NS IV and oral fluids/food as tolerated. Continue to draw daily BMP labs and monitor her Cr, BUN and GFR (4) Severe protein-calorie malnutrition Conclusion/Plan: Pt has lost 15kg of body weight over the past 2 months equating to 20% total body weight due to not eating because she vomits every time she eats solid foods leading to weakness and inability to cook food for herself. She is able to tolerate water but any other fluids that she drinks it leads to nausea. Plan: Start work up for dysphagia Encourage eating and drink as the patient is able to tolerate it. Consult with nutrition (5) Dysphagia Conclusion/Plan: Pt has not been able to keep solid food down for the past couple months, every time she eats she gets nauseated and ends up vomiting. She is able to hold down water but another other liquid causes her nausea. Plan: Have patient do a barium swallow and get either a CT or X-ray. Consult with radiology on best imaging modality to evaluate for any esophageal abnormalities. Continue with current diet and see how the patient tolerates it. (6) Hypokalemia Conclusion/Plan: Pt presented on 07/14 with a 2.6 potassium this morning was given Potassium Chloride 40 meq PO once in the ED. Plan: Continue to monitor Potassium with daily BMP lab draws. Give potassium supplementation via Potassium Chloride 10 meq in 100 mls @ 100 mls/hr IV and encourage oral intake of food and water as tolerated (7) Hyperglycemia Conclusion/Plan: Pt has a glucose count of 191 this morning 07/14 upon admission, and then 161 later in the day. She says that she hasn't had her glucose or A1c checked recently. She reports nocturia 1-2 times a night and polydipsia. Plan: Check her daily glucose and get an A1c (8) Fall Conclusion/Plan: Pt had a fall from ground level, denies hitting her head or LOC, however a head CT was done to check. CT came back with no acute findings, see report for full detail. The fall could be due to weakness caused by her severe protein-calorie malnurishment. Plan: Order PT and OT to work with patient (9) ADD (attention deficit disorder) Conclusion/Plan: Pt has a diagnosed history of ADD, she is not currently taking adderall, due to her a given potential for afib per her PCP on May 19, 2023. As such patient seems to get side tracked and takes a bit longer to respond to questions. She even told me that "I have ADD so that could affect the way I am". Plan: Continue to monitor patient (10) Atrial fibrillation Conclusion/Plan: Pt has a history of A-fib that was diagnosed via EKG on 05/06/2023. She was given meds for it then and had them filled, however she didn't end up taking the medications and instead threw them away. She was seen by her PCP for a follow-up and according to her PCPs notes, she defered any further cardiac testing. Today 07/14 she had another EKG done but was found in normal sinus rhythm with an 88 HR. Plan: Continue to monitor Pt HR and any other signs/symptoms of A-fib, if elevated abo ve 100 for sustained time or experiancing signs/symptoms, get repeat EKG to look for A-fib. Qualifiers: Atrial fibrillation type: unspecified Qualified Code(s): I48.91 - Unspecified atrial fibrillation (11) MDD (major depressive disorder) Conclusion/Plan: Pt has a current diagnosis of MDD, recurrent episodes, moderate degree that she currently takes medications for. Said she currently is depressive and suicidal but has no plan in place or prior attempts. She did say that "she is looking for a plan". Plan: Monitor Pt Consult with Social Work and have a PSY eval done Continue Burpropion SR 150 mg PO Continue Buspirone 15 mg PO Continue Paroxetine 40 mg PO (12) Anxiety Conclusion/Plan: Pt has a diagnosis of anxiety and is currently taking medications for it. Plan: Continue Bupropion SR 150 mg Buspirone 15 mg Paroxetine 40 mg - Lab Results Fish Bones: 07/14/23 09:32 07/14/23 15:06 Core Measures - Anticipated LOS I expect patient to be DC'd or transferred within 96 hours.: Yes - DVT/VTE - Prophylaxis VTE/DVT Device ordered at admit?: Yes VTE/DVT Prophylaxis med ordered at admit?: Yes
--- NOTE | 2023-07-14 16:54 | PHARMACY PROGRESS NOTE ---
- Best Possible Medication History Admit Date and Time: 07/14/23 1226 Processed by: Pharmacy Medication History completed: Yes Patient Interview: Completed Secondary Source(s): Pharmacy records, Insurance records As the person ultimately responsible for medication therapy, providers are able to order a medication from an existing home medication list in [facility] via the "Reconcile Routine" prior to Confirmation of that medication by technical support representative. Such practice is discouraged except when the physician, in their clinical judgment, deems that a medical need exists for a medication without regard to previous use. Patient states that she remembers being prescribed diltiazem but cannot confirm if she has been taking for the past few months
[2023-07-14 17:18] LABS: BAND NEUTROPHILS % (MANUAL) 8 %; DIFFERENTIAL COMMENT MANUAL DIFFERENTIAL; LYMPHOCYTES # (MANUAL) 0.3 10^3/uL (1.5-3.5); LYMPHOCYTES % (MANUAL) 1 %; MONOCYTES # (MANUAL) 0.3 10^3/uL (0.0-1.0); NEUTROPHILS # (MANUAL) 31.9 10^3/uL (1.5-6.6); PLATELET ESTIMATE, MANUAL NORMAL (130-450,000) (NORMAL); PLATELET MORPHOLOGY NORMAL APPEARANCE (NORMAL); RBC MORPHOLOGY (MULTIPLE) NORMAL APPEARANCE (NORMAL)
[2023-07-14] MEDS: SODIUM CHLORIDE FLUSH 0.9% 10 ML SYRINGE IVP SCH (18:37)
[2023-07-14] MEDS: POTASSIUM CHLOR 10 MEQ/100 ML 10 MEQ/100 ML BAG IV SCH ×4 (18:37→22:47)
[2023-07-14] MEDS: ONDANSETRON 4 MG/2 ML VIAL IVP PRN (21:40)
[2023-07-14] MEDS: buPROPion SR 150 MG TABLET PO SCH (21:40)
--- NOTE | 2023-07-14 22:47 | PROVIDER PROGRESS NOTE ---
Cardiac Exercise Physiologist Note - Cardiac Exercise Physiologist Note Cardiac Exercise Physiologist Note: RN paged "PRELIMINARY ANEROBIC BLOOD CULTURE RESULT IS POSITIVE FOR GRAM NEGATIVE BACILLI. PLEASE ADDRESS." patient already on ceftriaxone. covered for now. followup sensitivity Kat Can DO Internal Medicine Gena Preston Cardiac Exercise Physiologist
[2023-07-15] MEDS: SODIUM CHLORIDE FLUSH 0.9% 10 ML SYRINGE IVP SCH ×4 (00:36→23:39)
[2023-07-15] MEDS: ONDANSETRON ODT 4 MG TABLET TL PRN (01:18)
[2023-07-15 06:02] LABS: BASOPHILS % (AUTO) 0.3 %; HCT - HEMATOCRIT 33.5 % (37.0-47.0); LYMPHOCYTES % (AUTO) 1.7 %; MEAN CORPUSCULAR HEMOGLOBIN 29.8 pg (27.0-31.0); MEAN CORPUSCULAR HGB CONC 32.8 g/dL (32.0-36.0); MEAN CORPUSCULAR VOLUME 90.8 fL (81.0-99.0); NEUTROPHILS % (AUTO) 91.8 %; PLT - PLATELET COUNT 282 10^3/uL (130-450); RED BLOOD COUNT 3.69 10^6/uL (4.20-5.40); RED CELL DISTRIBUTION WIDTH 15.6 % (12.0-15.0); WHITE BLOOD COUNT 27.2 x10^3/uL (4.8-10.8)
[2023-07-15 06:11] LABS: CALCIUM 8.6 mg/dL (8.5-10.3); CREATININE 3.5 mg/dL (0.6-1.3); POTASSIUM 2.8 mmol/L (3.5-4.5)
[2023-07-15 06:36] LABS: PLATELET ESTIMATE, MANUAL NORMAL (130-450,000) (NORMAL); RBC MORPHOLOGY (MULTIPLE) NORMAL APPEARANCE (NORMAL)
[2023-07-15] MEDS: cefTRIAXone 1 GM in SODIUM CHLORIDE 0.9% MINIBAG 100 ML IV SCH (08:05)
[2023-07-15] MEDS: ENOXAPARIN 30 MG/0.3 ML SYRINGE SUBQ SCH (08:05)
[2023-07-15] MEDS: buPROPion SR 150 MG TABLET PO SCH ×2 (08:05→20:09)
[2023-07-15] MEDS: SODIUM CHLORIDE 0.9% 1,000 ML IV SCH ×2 (09:07→13:19)
[2023-07-15 10:03] LABS: DIFFERENTIAL COMMENT MANUAL=AUTO DIFF
[2023-07-15 10:06] LABS: BASOPHILS # (AUTO) 0.1 10^3/uL (0.0-0.1); LYMPHOCYTES # (AUTO) 0.5 10^3/uL (1.5-3.5); MONOCYTES # (AUTO) 0.8 10^3/uL (0.0-1.0)
[2023-07-15 10:07] LABS: BAND NEUTROPHILS % (MANUAL) 1 %; LYMPHOCYTES % (MANUAL) 1 %
--- NOTE | 2023-07-15 10:44 | PROVIDER PROGRESS NOTE ---
Subjective - Prog Note Date Prog Note Date: 07/15/23 Prog Note Time: 10:43 - Subjective Pt reports feeling: No change Subjective: 68 Y.O F here for a ground level fall is feeling the same as yesterday. She has had constant nausea despite medications being admistered, but denies any vomiting. She is able to eat about 1/3 of her solid food meals and more interested in the fruit than the rest of the food. She is able to walk from her bed/chair to the bathroom with a walker and assistance but feels very tired after. Denies any fever, chills, chest pain, difficulty breathing, abdominal pain. Current Medications - Current Medications Current Medications: Active Medications Acetaminophen (Acetaminophen 325 Mg Tablet) 650 mg PO Q4HR PRN PRN Reason: Pain 1 to 4, or Fever Bupropion HCl (Bupropion Sr 150 Mg Tablet) 150 mg PO BID [facility] Last Admin: 07/15/23 08:05 Dose: 150 mg Enoxaparin Sodium (Enoxaparin 30 Mg/0.3 Ml Syringe) 30 mg SUBQ DAILY [facility] Last Admin: 07/15/23 08:05 Dose: 30 mg Sodium Chloride (Normal Saline 0.9%) 1,000 mls @ 100 mls/hr IV .Q10H [facility] Stop: 07/15/23 18:59 Last Admin: 07/15/23 09:07 Dose: 100 mls/hr Ceftriaxone Sodium 1 gm/ (Sodium Chloride) 100 mls @ 200 mls/hr IV DAILY [facility] Last Infusion: 07/15/23 08:35 Dose: Infused Ondansetron HCl (Ondansetron Odt 4 Mg Tablet) 4 mg TL Q6HR PRN PRN Reason: Nausea / Vomiting Last Admin: 07/15/23 01:18 Dose: 4 mg Ondansetron HCl (Ondansetron 4 Mg/2 Ml Vial) 4 mg IVP Q6HR PRN PRN Reason: Nausea / Vomiting Last Admin: 07/14/23 21:40 Dose: 4 mg Oxycodone HCl (Oxycodone 5 Mg Tablet) 5 mg PO Q4HR PRN PRN Reason: Pain 5 to 7 Sodium Chloride (Sodium Chloride Flush 0.9% 10 Ml Syringe) 10 ml IVP PRN PRN PRN Reason: NEEDED PER PROVIDER ORDERS Sodium Chloride (Sodium Chloride Flush 0.9% 10 Ml Syringe) 10 ml IVP 0100,0900,1700 [facility] Last Admin: 07/15/23 08:08 Dose: Not Given Buspirone HCl 15 mg PO BID 05/06/23 buPROPion HCL [Bupropion HCl Sr] 150 mg PO BID 05/06/23 PARoxetine [Paxil] 40 mg PO HS 07/14/23 dilTIAZem HCL [Diltiazem 24Hr ER ([place])] 120 mg PO DAILY 07/14/23 Objective - Vital Signs/Intake & Output Reviewed Vital Signs: Yes Vital Signs: Vital Signs x48h Temp Pulse Resp BP Pulse Ox 07/15/23 08:00 36.8 C 96 20 151/78 H 94 Intake & Output: Intake & Output 07/12/23 07/13/23 07/14/23 07/15/23 23:59 23:59 23:59 23:59 Intake Total 3250.0 1200 Output Total 0 40 Balance 3250.0 1160 - Objective General Appearance: positive: No acute distress, Alert Eyes Bilateral: positive: Normal inspection ENT: positive: ENT inspection nml Neck: positive: Nml inspection Respiratory: positive: Chest non-tender, No respiratory distress, Other (deminished breath sounds) Cardiovascular: positive: Regular rate & rhythm, No murmur Peripheral Pulses: 1+ Dorsalis pedis (R), 1+ Dorsalis pedis (L) Abdomen: positive: Non-tender, No distention, Abnml bowel sounds (hypoactive bowel sounds) Back: positive: Nml inspection Skin: positive: Color nml, No rash, Warm, Dry Extremities: positive: Non-tender, No pedal edema Neurologic/Psychiatric: positive: Oriented x3, Motor nml (Pt shuffles her feet when walking, has to be cued to pick them up) - Lab Results Fish Bones: 07/15/23 05:33 07/15/23 05:33 Other Labs: Lab Results x24hrs 07/15/23 07/15/23 07/14/23 Range/Units 05:33 05:33 15:06 WBC 27.2 H (4.8-10.8) x10^3/uL RBC 3.69 L (4.20-5.40) 10^6/uL Hgb 11.0 L (12.0-16.0) g/dL Hct 33.5 L (37.0-47.0) % MCV 90.8 (81.0-99.0) fL MCH 29.8 (27.0-31.0) pg MCHC 32.8 (32.0-36.0) g/dL RDW 15.6 H (12.0-15.0) % Plt Count 282 (130-450) 10^3/uL MPV 11.0 H (7.9-10.8) fL Neut # (Auto) 25.0 H (1.5-6.6) 10^3/uL Lymph # (Auto) 0.5 L (1.5-3.5) 10^3/uL [place] # (Auto) 0.8 (0.0-1.0) 10^3/uL Eos # (Auto) 0.0 (0.0-0.7) 10^3/uL Baso # (Auto) 0.1 (0.0-0.1) 10^3/uL Absolute Nucleated RBC Not Reportable Total Counted 100 Band Neuts % (Manual) 1 (0 - 10) % Abnorm Lymph % (Manual) Not Reportable Nucleated RBC % Not Reportable Neutrophils # (Manual) Not Reportable (1.5-6.6) 10^3/uL Lymphocytes # (Manual) Not Reportable (1.5-3.5) 10^3/uL Monocytes # (Manual) Not Reportable (0.0-1.0) 10^3/uL Eosinophils # (Manual) Not Reportable Basophils # (Manual) Not Reportable Differential Comment MANUAL=AUTO DIFF Platelet Estimate NORMAL (130-450,000) (NORMAL) Platelet Morphology (NORMAL) RBC Morph Micro Appear NORMAL APPEARANCE (NORMAL) Sodium 135 136 (135-145) mmol/L Potassium 2.8 L 2.7 L (3.5-4.5) mmol/L Chloride 95 L 92 L (101-111) mmol/L Carbon Dioxide 27 27 (21-32) mmol/L Anion Gap 13.0 17.0 H (6-13) BUN 41 H 34 H (6-20) mg/dL Creatinine 3.5 H 2.7 H (0.6-1.3) mg/dL Estimated GFR (MDRD) 13 L 17 L (>89) Glucose 137 H 164 H (74-104) mg/dL Calcium 8.6 9.2 (8.5-10.3) mg/dL Urine Color Urine Clarity (CLEAR) Urine pH (5.0-7.5) PH Ur Specific [place] (1.002-1.030) Urine Protein (NEGATIVE) mg/dL Urine Glucose (UA) (NEGATIVE) mg/dL Urine Ketones (NEGATIVE) mg/dL Urine Occult Blood (NEGATIVE) Urine Nitrite (NEGATIVE) Urine Bilirubin (NEGATIVE) Urine Urobilinogen (NORMAL) E.U./dL Ur Leukocyte Esterase (NEGATIVE) Urine RBC (0-5) /HPF Urine WBC (0-5) /HPF Urine WBC Clumps Ur Squamous Epith Cells (<= Few) Urine Bacteria (None Seen) /HPF Ur Microscopic Review Urine Culture Comments 07/14/23 07/14/23 Range/Units 12:44 09:32 WBC (4.8-10.8) x10^3/uL RBC (4.20-5.40) 10^6/uL Hgb (12.0-16.0) g/dL Hct (37.0-47.0) % MCV (81.0-99.0) fL MCH (27.0-31.0) pg MCHC (32.0-36.0) g/dL RDW (12.0-15.0) % Plt Count (130-450) 10^3/uL MPV (7.9-10.8) fL Neut # (Auto) (1.5-6.6) 10^3/uL Lymph # (Auto) (1.5-3.5) 10^3/uL [place] # (Auto) (0.0-1.0) 10^3/uL Eos # (Auto) (0.0-0.7) 10^3/uL Baso # (Auto) (0.0-0.1) 10^3/uL Absolute Nucleated RBC Total Counted 100 Band Neuts % (Manual) 8 (0 - 10) % Abnorm Lymph % (Manual) Nucleated RBC % Neutrophils # (Manual) 31.9 H (1.5-6.6) 10^3/uL Lymphocytes # (Manual) 0.3 L (1.5-3.5) 10^3/uL Monocytes # (Manual) 0.3 (0.0-1.0) 10^3/uL Eosinophils # (Manual) Basophils # (Manual) Differential Comment MANUAL DIFFERENTIAL Platelet Estimate NORMAL (130-450,000) (NORMAL) Platelet Morphology NORMAL APPEARANCE (NORMAL) RBC Morph Micro Appear NORMAL APPEARANCE (NORMAL) Sodium (135-145) mmol/L Potassium (3.5-4.5) mmol/L Chloride (101-111) mmol/L Carbon Dioxide (21-32) mmol/L Anion Gap (6-13) BUN (6-20) mg/dL Creatinine (0.6-1.3) mg/dL Estimated GFR (MDRD) (>89) Glucose (74-104) mg/dL Calcium (8.5-10.3) mg/dL Urine Color YELLOW Urine Clarity CLOUDY (CLEAR) Urine pH 6.0 (5.0-7.5) PH Ur Specific [place] 1.025 (1.002-1.030) Urine Protein >=300 H (NEGATIVE) mg/dL Urine Glucose (UA) NEGATIVE (NEGATIVE) mg/dL Urine Ketones 15 H (NEGATIVE) mg/dL Urine Occult Blood LARGE H (NEGATIVE) Urine Nitrite NEGATIVE (NEGATIVE) Urine Bilirubin MODERATE H (NEGATIVE) Urine Urobilinogen 0.2 (NORMAL) (NORMAL) E.U./dL Ur Leukocyte Esterase SMALL H (NEGATIVE) Urine RBC 6-10 H (0-5) /HPF Urine WBC >25 H (0-5) /HPF Urine WBC Clumps PRESENT Ur Squamous Epith Cells RARE Squamous (<= Few) Urine Bacteria Many H (None Seen) /HPF Ur Microscopic Review INDICATED Urine Culture Comments INDICATED ABX Reporting Has patient been on IV antibiotics over the past 48 hours?: Yes Sepsis Event Note (H) - Evaluation Current Stage of Sepsis: Ruled out Assessment/Plan - Problem List (1) Leukocytosis Impression: Pt presented to the ED from a fall at ground level. Upon getting her lab work back she was found to have an initial WBC of 32.6, today 07/15 it is 27.2. The patient also has a positive UA leading to a diagnosis of UTI, however with a count of 32.6 there is suspicion that might be something else to drive her WBC to such a high number. She had a chest X-ray done which came back with no significant findings, see report for more detail. Blood cultures came back with with a prelimilary report of gram negative bacilli, indicating GRAM-NEGATIVE BACILLARY BACTEREMIA and the UA culture came back with a prelimilary report of E. coli, both of which are being covered with her current antibiotic Ceftriaxone. Plan: Continue to monitor her WBC count with daily CBC draws and see how it reacts to the treatment of her UTI. (2) UTI (urinary tract infection) Impression: Pt came in for a ground level fall and upon getting labs drawn up it was found that she had a WBC count of 32.6, and her UA came back with >25 WBC and many bacteria, with a culture showing E. coli. Plan: Continue on current antibotic treatment of Ceftriaxone 1 gm. (3) RISA (acute kidney injury) Impression: Pt labs showed RISA with an initial Cr of 2.7, BUN of 34 and a GFR of 17. Today 07/15 Cr of 3.5, BUN of 41, and a GFR of 13. This can be due to the severe protein malnutrition and dehydration that she has because of the inability to keep food down and vomiting over the past couple months. Plan: Continue hydration via NS IV and oral fluids/food as tolerated. Continue to draw daily BMP labs and monitor her Cr, BUN and GFR (4) Severe protein-calorie malnutrition Impression: Pt has lost 15kg of body weight over the past 2 months equating to 20% total body weight due to not eating because she vomits every time she eats solid foods leading to weakness and inability to cook food for herself. She is able to tolerate water and ate about 75% of her dinner last night 07/14, and according to the patient she ate about 1/3 of her breakfast on 07/15. She is tolerating the food well with no vomiting but has constant nausea that medication is unable to help with. Plan: Start work up for dysphagia Encourage eating and drinking as the patient is able to tolerate it. Consult with nutrition (5) Dysphagia Impression: Pt has not been able to keep solid food down for the past couple months, every time she would eat she got nauseated and ended up vomiting. However, since being admitted she is able to tolerate water and ate about 75% of her dinner last night 07/14, and according to the patient she ate about 1/3 of her breakfast on 07/15. She is tolerating the food well with no vomiting but has constant nausea that medication is unable to help with. Plan: Have patient do a barium swallow and get either a CT or X-ray. Consult with radiology on best imaging modality to evaluate for any esophageal abnormalities. Continue with current diet and see how the patient tolerates it. (6) Hypokalemia Impression: Pt presented on 07/14 with a 2.6 potassium and she was given potassium supplementation via Potassium Chloride 10 meq in 100 mls @ 100 mls/hr IV x4 bags on 07/14. Today on 07/15 she has a potassium of 2.8. Plan: Continue to monitor Potassium with daily BMP lab draws. Continue to give potassium supplementation via Potassium Chloride 10 meq in 100 mls @ 100 mls/hr IV until patients potassium is back to 3.5. Encourage oral intake of food and water as tolerated (7) Hyperglycemia Impression: Pt has a glucose count of 191 this morning 07/14 upon admission, and then 161 later in the day. Today 07/15 her glucose is 137. She says that she hasn't had her glucose or A1c checked recently. She reports nocturia 1-2 times a night and polydipsia. Plan: Awaiting A1c results (8) Fall Impression: Pt had a fall from ground level, denies hitting her head or LOC, however a head CT was done to check. CT came back with no acute findings, see report for full detail. The fall could be due to weakness caused by her severe protein-calorie malnurishment. Plan: Order PT and OT to work with patient (9) ADD (attention deficit disorder) Impression: Pt has a diagnosed history of ADD, she is not currently taking adderall, due to her a given potential for afib per her PCP on May 19, 2023. As such patient seems to get side tracked and takes a bit longer to respond to questions. She even told me that "I have ADD so that could affect the way I am". Plan: Continue to monitor patient (10) Atrial fibrillation Impression: Pt has a history of A-fib that was diagnosed via EKG on 05/06/2023. She was given meds for it then and had them filled, however she didn't end up taking the medications and instead threw them away. She was seen by her PCP for a follow-up and according to her PCPs notes, she defered any further cardiac testing. On 07/14 she had another EKG done but was found in normal sinus rhythm with an 88 HR. Plan: Continue to monitor Pt HR and any other signs/symptoms of A-fib, if elevated above 100 for sustained time or experiancing signs/symptoms, get repeat EKG to look for A-fib. Qualifiers: Atrial fibrillation type: unspecified Qualified Code(s): I48.91 - Unspecified atrial fibrillation (11) MDD (major depressive disorder) Impression: Pt has a current diagnosis of MDD, recurrent episodes, moderate degree that she currently takes medications for. Said she currently is depressive and suicidal but has no plan in place or prior attempts. She did say that "she is looking for a plan". Plan: Monitor Pt Consult with Social Work and have a PSY eval done Continue Burpropion SR 150 mg PO Continue Buspirone 15 mg PO Continue Paroxetine 40 mg PO (12) Anxiety Impression: Pt has a diagnosis of anxiety and is currently taking medications for it. Plan: Continue Bupropion SR 150 mg Buspirone 15 mg Paroxetine 40 mg
[2023-07-15 11:23] LABS: ESTIMATED AVERAGE GLUCOSE 111 mg/dL (70-100); HEMOGLOBIN A1c% 5.5 % (4.27-6.07)
[2023-07-15] MEDS ORDERED: POTASSIUM CHLORIDE 20 MEQ TABLET PO STA (14:27)
[2023-07-15] MEDS: POTASSIUM CHLOR 10 MEQ/100 ML 10 MEQ/100 ML BAG IV SCH ×4 (15:18→18:18)
[2023-07-15] MEDS: ONDANSETRON 4 MG/2 ML VIAL IVP PRN ×2 (16:57→23:09)
[2023-07-15] MEDS ORDERED: METOPROLOL 5 MG/5 ML VIAL IVP STA (18:21)
[2023-07-15] MEDS: METOPROLOL TARTRATE 25 MG TABLET PO SCH (20:10)
[2023-07-16 05:53] LABS: BASOPHILS % (AUTO) 0.3 %; EOSINOPHILS # (AUTO) 0.1 10^3/uL (0.0-0.7); EOSINOPHILS % (AUTO) 0.4 %; HGB - HEMOGLOBIN 9.8 g/dL (12.0-16.0); LYMPHOCYTES # (AUTO) 0.5 10^3/uL (1.5-3.5); LYMPHOCYTES % (AUTO) 3.1 %; MEAN CORPUSCULAR HEMOGLOBIN 29.8 pg (27.0-31.0); MEAN CORPUSCULAR HGB CONC 31.6 g/dL (32.0-36.0); MEAN CORPUSCULAR VOLUME 94.2 fL (81.0-99.0); MEAN PLATELET VOLUME 11.4 fL (7.9-10.8); MONOCYTES # (AUTO) 0.6 10^3/uL (0.0-1.0); MONOCYTES % (AUTO) 3.9 %; NEUTROPHILS % (AUTO) 91.5 %; PLT - PLATELET COUNT 218 10^3/uL (130-450); RED BLOOD COUNT 3.29 10^6/uL (4.20-5.40); RED CELL DISTRIBUTION WIDTH 15.9 % (12.0-15.0); WHITE BLOOD COUNT 15.3 x10^3/uL (4.8-10.8)
[2023-07-16 06:30] LABS: CALCIUM 8.5 mg/dL (8.5-10.3); CREATININE 3.1 mg/dL (0.6-1.3); POTASSIUM 2.7 mmol/L (3.5-4.5)
--- NOTE | 2023-07-16 08:20 | PROVIDER PROGRESS NOTE ---
Subjective - Prog Note Date Prog Note Date: 07/16/23 Prog Note Time: 12:34 - Subjective Pt reports feeling: Worse Subjective: 68 Y.O F here for fall from ground level is feeling a little worse today from yesterday. She has vomited a couple times today unable to keep any solid food down. She was given an ensure from the vapor coater, of which the patient says that she "enjoys and likes the taste of it". However, per the vapor coater when she took a sip she started to gag and dry heave but did not actually vomit. Pt states that she has nausea that is not helped by medication, and she has some mild 2/10 abdominal pain. She has developed a productive cough with clear sputum. Denies any fever, chills, chest pain, difficulty breathing or SOB. Current Medications - Current Medications Current Medications: Active Medications Acetaminophen (Acetaminophen 325 Mg Tablet) 650 mg PO Q4HR PRN PRN Reason: Pain 1 to 4, or Fever Bupropion HCl (Bupropion Sr 150 Mg Tablet) 150 mg PO BID [facility] Last Admin: 07/15/23 20:09 Dose: 150 mg Enoxaparin Sodium (Enoxaparin 30 Mg/0.3 Ml Syringe) 30 mg SUBQ DAILY [facility] Last Admin: 07/15/23 08:05 Dose: 30 mg Ceftriaxone Sodium 1 gm/ (Sodium Chloride) 100 mls @ 200 mls/hr IV DAILY [facility] Last Infusion: 07/15/23 08:35 Dose: Infused Metoprolol Tartrate (Metoprolol Tartrate 25 Mg Tablet) 25 mg PO BID [facility] Last Admin: 07/15/23 20:10 Dose: 25 mg Ondansetron HCl (Ondansetron Odt 4 Mg Tablet) 4 mg TL Q6HR PRN PRN Reason: Nausea / Vomiting Last Admin: 07/15/23 01:18 Dose: 4 mg Ondansetron HCl (Ondansetron 4 Mg/2 Ml Vial) 4 mg IVP Q6HR PRN PRN Reason: Nausea / Vomiting Last Admin: 07/15/23 23:09 Dose: 4 mg Oxycodone HCl (Oxycodone 5 Mg Tablet) 5 mg PO Q4HR PRN PRN Reason: Pain 5 to 7 Polyethylene Glycol (Polyethylene Glycol 3350 17 Gm Packet) 17 gm PO DAILY [facility] Sodium Chloride (Sodium Chloride Flush 0.9% 10 Ml Syringe) 10 ml IVP PRN PRN PRN Reason: NEEDED PER PROVIDER ORDERS Sodium Chloride (Sodium Chloride Flush 0.9% 10 Ml Syringe) 10 ml IVP 0100,0900,1700 [facility] Last Admin: 07/15/23 23:39 Dose: 10 ml Buspirone HCl 15 mg PO BID 05/06/23 buPROPion HCL [Bupropion HCl Sr] 150 mg PO BID 05/06/23 PARoxetine [Paxil] 40 mg PO HS 07/14/23 dilTIAZem HCL [Diltiazem 24Hr ER ([place])] 120 mg PO DAILY 07/14/23 Objective - Vital Signs/Intake & Output Reviewed Vital Signs: Yes Vital Signs: Vital Signs x48h Temp Pulse Resp BP Pulse Ox 07/16/23 08:02 36.8 C 90 18 133/90 H 94 07/16/23 05:16 37.3 C 94 20 131/91 H 96 Intake & Output: Intake & Output 07/13/23 07/14/23 07/15/23 07/16/23 23:59 23:59 23:59 23:59 Intake Total 3250.0 3176.667 Output Total 0 390 200 Balance 3250.0 2786.667 -200 - Objective General Appearance: positive: No acute distress, Alert, Other (disheaveled appearance) Eyes Bilateral: positive: Normal inspection ENT: positive: ENT inspection nml Neck: positive: Nml inspection Respiratory: positive: Chest non-tender, No respiratory distress, Other (deminished breath sounds) Cardiovascular: positive: Regular rate & rhythm, No murmur Abdomen: positive: Non-tender, Abnml bowel sounds (hyperactive bowel sounds) Skin: positive: Color nml, No rash, Warm, Diaphoresis Extremities: positive: Non-tender, No pedal edema Neurologic/Psychiatric: positive: Oriented x3 - Lab Results Fish Bones: 07/16/23 05:31 07/16/23 05:31 Other Labs: Lab Results x24hrs 07/16/23 07/16/23 07/15/23 Range/Units 05:31 05:31 05:33 WBC 15.3 H (4.8-10.8) x10^3/uL RBC 3.29 L (4.20-5.40) 10^6/uL Hgb 9.8 L (12.0-16.0) g/dL Hct 31.0 L (37.0-47.0) % MCV 94.2 (81.0-99.0) fL MCH 29.8 (27.0-31.0) pg MCHC 31.6 L (32.0-36.0) g/dL RDW 15.9 H (12.0-15.0) % Plt Count 218 (130-450) 10^3/uL MPV 11.4 H (7.9-10.8) fL Neut # (Auto) 14.0 H (1.5-6.6) 10^3/uL Lymph # (Auto) 0.5 L (1.5-3.5) 10^3/uL [place] # (Auto) 0.6 (0.0-1.0) 10^3/uL Eos # (Auto) 0.1 (0.0-0.7) 10^3/uL Baso # (Auto) 0.0 (0.0-0.1) 10^3/uL Absolute Nucleated RBC 0.00 x10^3/uL Total Counted Band Neuts % (Manual) (0 - 10) % Nucleated RBC % 0.0 /100WBC Differential Comment Sodium 136 (135-145) mmol/L Potassium 2.7 L (3.5-4.5) mmol/L Chloride 99 L (101-111) mmol/L Carbon Dioxide 27 (21-32) mmol/L Anion Gap 10.0 (6-13) BUN 45 H (6-20) mg/dL Creatinine 3.1 H (0.6-1.3) mg/dL Estimated GFR (MDRD) 15 L (>89) Glucose 95 (74-104) mg/dL Estimat Average Glucose 111 H (70-100) mg/dL Hemoglobin A1c % 5.5 (4.27-6.07) % Calcium 8.5 (8.5-10.3) mg/dL 07/15/23 Range/Units 05:33 WBC (4.8-10.8) x10^3/uL RBC (4.20-5.40) 10^6/uL Hgb (12.0-16.0) g/dL Hct (37.0-47.0) % MCV (81.0-99.0) fL MCH (27.0-31.0) pg MCHC (32.0-36.0) g/dL RDW (12.0-15.0) % Plt Count (130-450) 10^3/uL MPV (7.9-10.8) fL Neut # (Auto) 25.0 H (1.5-6.6) 10^3/uL Lymph # (Auto) 0.5 L (1.5-3.5) 10^3/uL [place] # (Auto) 0.8 (0.0-1.0) 10^3/uL Eos # (Auto) 0.0 (0.0-0.7) 10^3/uL Baso # (Auto) 0.1 (0.0-0.1) 10^3/uL Absolute Nucleated RBC x10^3/uL Total Counted 100 Band Neuts % (Manual) 1 (0 - 10) % Nucleated RBC % /100WBC Differential Comment MANUAL=AUTO DIFF Sodium (135-145) mmol/L Potassium (3.5-4.5) mmol/L Chloride (101-111) mmol/L Carbon Dioxide (21-32) mmol/L Anion Gap (6-13) BUN (6-20) mg/dL Creatinine (0.6-1.3) mg/dL Estimated GFR (MDRD) (>89) Glucose (74-104) mg/dL Estimat Average Glucose (70-100) mg/dL Hemoglobin A1c % (4.27-6.07) % Calcium (8.5-10.3) mg/dL ABX Reporting Has patient been on IV antibiotics over the past 48 hours?: Yes Sepsis Event Note (H) - Evaluation Current Stage of Sepsis: Ruled out Assessment/Plan - Problem List (1) Gram-negative bacteremia Impression: The goal for this patient is to treat her gram-negative bacteremia by useing antibiotics and drive her WBC count down to wnl. Pt presented to the ED from a fall at ground level. Upon getting her lab work back she was found to have an initial WBC of 32.6, 07/15 it is 27.2, 07/16 it is 15.1. The patient also has a positive UA leading to a diagnosis of UTI, however with a count of 32.6 there is suspicion that might be something else to drive her WBC to such a high number. She had a chest X-ray done which came back with no significant findings, see report for more detail. Blood cultures came back with with a prelimilary report of gram negative bacilli, indicating GRAM-NEGATIVE BACILLARY BACTEREMIA and the UA culture came back with a final report of E. coli, both of which are being covered with her current antibiotic Ceftriaxone. Plan: Continue to monitor her WBC count with daily CBC draws and continue to treat her gram-negative bacteremia with Ceftriaxone (2) RISA (acute kidney injury) Impression: The goal is for the patient to have labs wnl of the following: Cr, BUN, and try to improve her GFR. Also want to make sure that the patient is urinating and retaining fluid. Pt labs showed RISA with an initial Cr of 2.7, BUN of 34 and a GFR of 17. 07/15 Cr of 3.5, BUN of 41, and a GFR of 13, 07/16 Cr of 3.1, BUN 45, GFR 15. This can be due to the severe protein malnutrition and dehydration that she has because of the inability to keep food down and vomiting over the past couple months. Pt had an retroperitoneal ultrasound done which found increased echogenicity of the kidneys which can be seen with medical renal disease, no hydronephrosis, and a left renal simple cysts. See report for full detail. Pt continues to have low urine output so consideration for a CT is being made, however due to her labs indicating RISA, dye can not be used. Plan: Continue hydration via NS IV and oral fluids/food as tolerated. Continue to draw daily BMP labs and monitor her Cr, BUN and GFR Continue to check I & O (3) UTI (urinary tract infection) Impression: Pt came in for a ground level fall and upon getting labs drawn up it was found that she had a WBC count of 32.6, it has since come down to 15.1 as of 07/16. Her UA came back with >25 WBC and many bacteria, with a culture showing E. coli. Plan: Continue on current antibotic treatment of Ceftriaxone 1 gm. (4) Severe protein-calorie malnutrition Impression: Pt has lost 15kg of body weight over the past 2 months equating to 20% total body weight due to not eating because she vomits every time she eats solid foods leading to weakness and inability to cook food for herself. She is able to tole rate water and ate about 75% of her dinner last night 07/14, and according to the patient she ate about 1/3 of her breakfast on 07/15. She is tolerating the food well with no vomiting but has constant nausea that medication is unable to help with. Plan: Start work up for dysphagia Encourage eating and drinking as the patient is able to tolerate it. Consult with nutrition (5) Dysphagia Impression: Pt has not been able to keep solid food down for the past couple months, every time she would eat she got nauseated and ended up vomiting. However, since being admitted she is able to tolerate water and ate about 75% of her dinner last night 07/14, and according to the patient she ate about 1/3 of her breakfast on 07/15. She is tolerating the food well with no vomiting but has constant nausea that medication is unable to help with. Plan: Have patient do a barium swallow and get either a CT or X-ray. Consult with radiology on best imaging modality to evaluate for any esophageal abnormalities. Continue with current diet and see how the patient tolerates it. (6) Hypokalemia Impression: Goal is to increase patients potassium back to wnl as to avoid any cardiac related problems. Pt presented on 07/14 with a 2.6 potassium and she was given potassium supplementation via Potassium Chloride 10 meq in 100 mls @ 100 mls/hr IV x4 bags on 07/14. Today on 07/15 she has a potassium of 2.8, 07/16 she has a potassium of 2.7. Plan: Continue to monitor Potassium with daily BMP lab draws. Continue to give potassium supplementation via Potassium Chloride 10 meq in 100 mls @ 100 mls/hr IV until patients potassium is back to 3.5. Encourage oral intake of food and water as tolerated (7) Hyperglycemia Impression: Pt has a glucose count of 191 this morning 07/14 upon admission, and then 161 later in the day. Today 07/15 her glucose is 137, 07/16 her glucose is 95. Her A1c is 5.5. She reports nocturia 1-2 times a night and polydipsia. Plan: With the glucose wnl now and A1c in the non-diabetic range will continue to monitor the patients glucose and any signs or symptoms of diabetes. (8) Fall Impression: Pt had a fall from ground level, denies hitting her head or LOC, however a head CT was done to check. CT came back with no acute findings, see report for full detail. The fall could be due to weakness caused by her severe protein-calorie malnurishment. Plan: Order PT and OT to work with patient (9) ADD (attention deficit disorder) Impression: Pt has a diagnosed history of ADD, she is not currently taking adderall, due to her a given potential for afib per her PCP on May 19, 2023. As such patient seems to get side tracked and takes a bit longer to respond to questions. She even told me that "I have ADD so that could affect the way I am". Plan: Continue to monitor patient (10) Atrial fibrillation Impression: Pt has a history of A-fib that was diagnosed via EKG on 05/06/2023. She was given meds for it then and had them filled, however she didn't end up taking the medications and instead threw them away. She was seen by her PCP for a follow-up and according to her PCPs notes, she defered any further cardiac testing. On she had another EKG done but was found in normal sinus rhythm with an 88 HR. Plan: Continue to monitor Pt HR and any other signs/symptoms of A-fib, if elevated above 100 for sustained time or experiancing signs/symptoms, get repeat EKG to look for A-fib. Qualifiers: Atrial fibrillation type: unspecified Qualified Code(s): I48.91 - Unspec ified atrial fibrillation (11) MDD (major depressive disorder) Impression: Pt has a current diagnosis of MDD, recurrent episodes, moderate degree that she currently takes medications for. Said she currently is depressive and suicidal but has no plan in place or prior attempts. She did say that "she is looking for a plan". Plan: Monitor Pt Consult with Social Work and have a PSY eval done Continue Burpropion SR 150 mg PO Continue Buspirone 15 mg PO Continue Paroxetine 40 mg PO (12) Anxiety Impression: Pt has a diagnosis of anxiety and is currently taking medications for it. Plan: Continue Bupropion SR 150 mg Buspirone 15 mg Paroxetine 40 mg
[2023-07-16] MEDS: cefTRIAXone 1 GM in SODIUM CHLORIDE 0.9% MINIBAG 100 ML IV SCH (08:28)
[2023-07-16] MEDS: ENOXAPARIN 30 MG/0.3 ML SYRINGE SUBQ SCH (08:28)
[2023-07-16] MEDS: METOPROLOL TARTRATE 25 MG TABLET PO SCH ×2 (08:28→21:03)
[2023-07-16] MEDS: buPROPion SR 150 MG TABLET PO SCH ×2 (08:29→21:03)
[2023-07-16] MEDS: polyethylene glycoL 3350 17 GM PACKET PO SCH (08:29)
[2023-07-16] MEDS ORDERED: POTASSIUM CHLORIDE 20 MEQ TABLET PO ONE (08:42)
[2023-07-16] MEDS: POTASSIUM CHLOR 10 MEQ/100 ML 10 MEQ/100 ML BAG IV SCH ×4 (09:30→13:05)
[2023-07-16] MEDS: SODIUM CHLORIDE FLUSH 0.9% 10 ML SYRINGE IVP SCH ×2 (09:32→17:26)
--- NOTE | 2023-07-16 09:59 | Ultrasound Report ---
PROCEDURE: Retroperitoneal INDICATIONS: renal failure, UTI. TECHNIQUE: Real-time scanning was performed of the retroperitoneal organs, with image documentation. COMPARISON: None. FINDINGS: Kidneys: Kidneys are normal in size. Right kidney measures 12.3 cm long; left kidney measures 13.7 cm long. Right renal cortical thickness is 1.2 cm; left renal cortical thickness is 1.9 cm. No jody d masses, hydronephrosis, or nephrolithiasis. Left renal simple cysts measuring 2.0 and 1.2 cm. The kidneys appear increased in echogenicity. Bladder: Pre-void bladder volume is 41 mL. Patient was unable to void. Pre-void images demonstrate no intraluminal masses or stones. On pre-void images, bilateral ureteral jets are noted with color D oppler interrogation. (Of note, ureteral jets may not be detectable in up to 25% of cases due to ins ufficient differences in specific gravity between ureteral and bladder urine). Miscellaneous: No free abdominal fluid. IMPRESSION: 1.Increased echogenicity of the kidneys which can be seen with medical renal disease. 2.No hydronephrosis. 3.Left renal simple cysts. Reviewed by: Bubba Rodriguez MD on 07/16/2023 9:58 AM PDT Approved by: Bubba Rodriguez MD on 07/16/2023 9:58 AM PDT Station ID: [id number]
[2023-07-16] MEDS: ONDANSETRON ODT 4 MG TABLET TL PRN ×2 (12:39→21:07)
[2023-07-16] MEDS: ONDANSETRON 4 MG/2 ML VIAL IVP PRN (17:32)
[2023-07-17] MEDS: SODIUM CHLORIDE FLUSH 0.9% 10 ML SYRINGE IVP SCH ×3 (00:22→16:04)
[2023-07-17] MEDS: ONDANSETRON 4 MG/2 ML VIAL IVP PRN ×2 (00:22→16:04)
[2023-07-17 05:33] LABS: BASOPHILS % (AUTO) 0.2 %; EOSINOPHILS # (AUTO) 0.1 10^3/uL (0.0-0.7); EOSINOPHILS % (AUTO) 1.2 %; HCT - HEMATOCRIT 29.7 % (37.0-47.0); HGB - HEMOGLOBIN 9.4 g/dL (12.0-16.0); LYMPHOCYTES # (AUTO) 0.5 10^3/uL (1.5-3.5); LYMPHOCYTES % (AUTO) 5.3 %; MEAN CORPUSCULAR HEMOGLOBIN 29.6 pg (27.0-31.0); MEAN CORPUSCULAR HGB CONC 31.6 g/dL (32.0-36.0); MEAN CORPUSCULAR VOLUME 93.4 fL (81.0-99.0); MEAN PLATELET VOLUME 11.4 fL (7.9-10.8); MONOCYTES # (AUTO) 0.5 10^3/uL (0.0-1.0); MONOCYTES % (AUTO) 5.7 %; NEUTROPHILS # (AUTO) 7.4 10^3/uL (1.5-6.6); PLT - PLATELET COUNT 214 10^3/uL (130-450); RED BLOOD COUNT 3.18 10^6/uL (4.20-5.40); RED CELL DISTRIBUTION WIDTH 15.9 % (12.0-15.0); WHITE BLOOD COUNT 8.5 x10^3/uL (4.8-10.8)
[2023-07-17 05:59] LABS: CALCIUM 8.6 mg/dL (8.5-10.3); CREATININE 2.5 mg/dL (0.6-1.3); POTASSIUM 2.9 mmol/L (3.5-4.5)
[2023-07-17] MEDS: METOPROLOL TARTRATE 25 MG TABLET PO SCH ×2 (08:22→20:37)
[2023-07-17] MEDS: buPROPion SR 150 MG TABLET PO SCH ×2 (08:22→20:37)
[2023-07-17] MEDS: ENOXAPARIN 30 MG/0.3 ML SYRINGE SUBQ SCH (08:22)
[2023-07-17] MEDS: polyethylene glycoL 3350 17 GM PACKET PO SCH (08:24)
[2023-07-17] MEDS: POTASSIUM CHLORIDE 20 MEQ TABLET PO SCH ×3 (08:44→16:04)
[2023-07-17] MEDS: cefTRIAXone 1 GM in SODIUM CHLORIDE 0.9% MINIBAG 100 ML IV SCH (10:37)
--- NOTE | 2023-07-17 10:57 | PROVIDER PROGRESS NOTE ---
Subjective - Prog Note Date Prog Note Date: 07/17/23 Prog Note Time: 10:59 - Subjective Pt reports feeling: No change Subjective: 68 Y.O F here for fall from ground level is feeling the same today as she did yesterday. She vomited a couple times this morning before drinking her clear ensure. The same instance as yesterday when she drank some ensure she started to burp, gag and dry heave a little bit but did not vomit. Per the patients nurse the patient is able to tolerate her oral medications. Pt says that she has 2/10 dull pain in the epigastric region of her abdomen. She had a bowel movement today that was diarrhea. She is no longer coughing today. Denies any fever, chills, chest pain, difficulty breathing or SOB, blood or tar color in her stool, blood or coffee ground material in her vomit. Current Medications - Current Medications Current Medications: Active Medications Acetaminophen (Acetaminophen 325 Mg Tablet) 650 mg PO Q4HR PRN PRN Reason: Pain 1 to 4, or Fever Last Admin: 07/16/23 17:32 Dose: 650 mg Bupropion HCl (Bupropion Sr 150 Mg Tablet) 150 mg PO BID [facility] Last Admin: 07/17/23 08:22 Dose: 150 mg Enoxaparin Sodium (Enoxaparin 30 Mg/0.3 Ml Syringe) 30 mg SUBQ DAILY [facility] Last Admin: 07/17/23 08:22 Dose: 30 mg Ceftriaxone Sodium 1 gm/ (Sodium Chloride) 100 mls @ 200 mls/hr IV DAILY [facility] Last Admin: 07/17/23 10:37 Dose: Not Given Metoprolol Tartrate (Metoprolol Tartrate 25 Mg Tablet) 25 mg PO BID [facility] Last Admin: 07/17/23 08:22 Dose: 25 mg Ondansetron HCl (Ondansetron Odt 4 Mg Tablet) 4 mg TL Q6HR PRN PRN Reason: Nausea / Vomiting Last Admin: 07/16/23 21:07 Dose: 4 mg Ondansetron HCl (Ondansetron 4 Mg/2 Ml Vial) 4 mg IVP Q6HR PRN PRN Reason: Nausea / Vomiting Last Admin: 07/17/23 00:22 Dose: 4 mg Oxycodone HCl (Oxycodone 5 Mg Tablet) 5 mg PO Q4HR PRN PRN Reason: Pain 5 to 7 Polyethylene Glycol (Polyethylene Glycol 3350 17 Gm Packet) 17 gm PO DAILY [facility] Last Admin: 07/17/23 08:24 Dose: Not Given Potassium Chloride (Potassium Chloride 20 Meq Tablet) 40 meq PO TIDWM [facility] Last Admin: 07/17/23 08:44 Dose: 40 meq Sodium Chloride (Sodium Chloride Flush 0.9% 10 Ml Syringe) 10 ml IVP PRN PRN PRN Reason: NEEDED PER PROVIDER ORDERS Sodium Chloride (Sodium Chloride Flush 0.9% 10 Ml Syringe) 10 ml IVP 0100,0900,1700 [facility] Last Admin: 07/17/23 00:22 Dose: 10 ml Buspirone HCl 15 mg PO BID 05/06/23 buPROPion HCL [Bupropion HCl Sr] 150 mg PO BID 05/06/23 PARoxetine [Paxil] 40 mg PO HS 07/14/23 dilTIAZem HCL [Diltiazem 24Hr ER ([place])] 120 mg PO DAILY 07/14/23 Objective - Vital Signs/Intake & Output Reviewed Vital Signs: Yes Vital Signs: Vital Signs x48h Temp Pulse Resp BP BP Pulse Ox 07/17/23 08:22 166/94 H 07/17/23 07:55 36.9 C 103 H 18 166/94 H 94 Intake & Output: Intake & Output 07/14/23 07/15/23 07/16/23 07/17/23 23:59 23:59 23:59 23:59 Intake Total 3250.0 3176.667 900 240 Output Total 0 390 820 400 Balance 3250.0 2786.667 80 -160 - Objective General Appearance: positive: No acute distress, Alert Eyes Bilateral: positive: Normal inspection ENT: positive: ENT inspection nml Neck: positive: Nml inspection Respiratory: positive: Chest non-tender, No respiratory distress, Breath sounds nml Cardiovascular: positive: Regular rate & rhythm, No murmur Peripheral Pulses: 2+ Dorsalis pedis (R), 2+ Dorsalis pedis (L) Abdomen: positive: Non-tender, Nml bowel sounds Skin: positive: Color nml, No rash, Dry, Other (Her legs feel cool to the touch, rest of body feels warm) Extremities: positive: Non-tender, No pedal edema Neurologic/Psychiatric: positive: Oriented x3 - Lab Results Fish Bones: 07/17/23 05:15 07/17/23 05:15 Other Labs: Lab Results x24hrs 07/17/23 07/17/23 Range/Units 05:15 05:15 WBC 8.5 (4.8-10.8) x10^3/uL RBC 3.18 L (4.20-5.40) 10^6/uL Hgb 9.4 L (12.0-16.0) g/dL Hct 29.7 L (37.0-47.0) % MCV 93.4 (81.0-99.0) fL MCH 29.6 (27.0-31.0) pg MCHC 31.6 L (32.0-36.0) g/dL RDW 15.9 H (12.0-15.0) % Plt Count 214 (130-450) 10^3/uL MPV 11.4 H (7.9-10.8) fL Neut # (Auto) 7.4 H (1.5-6.6) 10^3/uL Lymph # (Auto) 0.5 L (1.5-3.5) 10^3/uL Mason # (Auto) 0.5 (0.0-1.0) 10^3/uL Eos # (Auto) 0.1 (0.0-0.7) 10^3/uL Baso # (Auto) 0.0 (0.0-0.1) 10^3/uL Absolute Nucleated RBC 0.00 x10^3/uL Nucleated RBC % 0.0 /100WBC Sodium 139 (135-145) mmol/L Potassium 2.9 L (3.5-4.5) mmol/L Chloride 102 (101-111) mmol/L Carbon Dioxide 28 (21-32) mmol/L Anion Gap 9.0 (6-13) BUN 41 H (6-20) mg/dL Creatinine 2.5 H (0.6-1.3) mg/dL Estimated GFR (MDRD) 19 L (>89) Glucose 88 (74-104) mg/dL Calcium 8.6 (8.5-10.3) mg/dL Sepsis Event Note (H) - Evaluation Current Stage of Sepsis: Ruled out Assessment/Plan - Problem List (1) Dysphagia Impression: Pt has not been able to keep solid food down for the past couple months, every time she would eat she got nauseated and ended up vomiting. However, since being admitted she is able to tolerate water and ate about 75% of her dinner on 07/14, and according to the patient she ate about 1/3 of her breakfast on 07/15. On 07/17 the patient had some clear ensure this morning but when she started drinking it she started to burp and act like she was going to get sick, however she did not vomit. Pt did not order lunch or dinner because she is not hungry. Talked with radiology and due to the limitations on imaging she is going to receive a chest CT. Plan: Pt is made NPO for the chest CT Due to recieve a chest CT with contrast to access upper GI. If nothing con cerning shows with imaging, she will have to have a work up for her Dysphagia in an outpatient setting. (2) Severe protein-calorie malnutrition Impression: Pt has lost 15kg of body weight over the past 2 months equating to 20% total body weight due to not eating because she vomits every time she eats solid foods leading to weakness and inability to cook food for herself. She is able to tolerate water and ate about 75% of her dinner last night 07/14, and according to the patient she ate about 1/3 of her breakfast on 07/15. She is tolerating the food well with no vomiting but has constant nausea that medication is unable to help with. Plan: Start work up for dysphagia Encourage eating and drinking as the patient is able to tolerate it. Consult with nutrition (3) Gram-negative bacteremia Impression: Pt presented to the ED from a fall at ground level. Upon getting her lab work back she was found to have an initial WBC of 32.6, 07/15 it is 27.2, 07/16 it is 15.1, 07/17 it is 8.5 which it is back wnl. The patient also has a positive UA back on 07/14 leading to a diagnosis of UTI, however with a count of 32.6 there is suspicion that might be something else to drive her WBC to such a high number. She had a chest X-ray done which came back with no significant findings, see report for more detail. Blood cultures came back with with a prelimilary report of gram negative bacilli, indicating GRAM-NEGATIVE BACILLARY BACTEREMIA and the UA culture came back with a final report of E. coli, both of which are being covered with her current antibiotic Ceftriaxone. Plan: Continue to monitor her WBC count with daily CBC draws. With her WBC count back wnl the patient is being switch to oral antibiotics of Cipro 250 mg BID for 5 more days. (4) RISA (acute kidney injury) Impression: The goal is for the patient to have labs wnl of the following: Cr, BUN, and try to improve her GFR. Also want to make sure that the patient is urinating and retaining fluid. Pt labs showed RISA with an initial Cr of 2.7, BUN of 34 and a GFR of 17. 07/15 Cr of 3.5, BUN of 41, and a GFR of 13, 07/16 Cr of 3.1, BUN 45, GFR 15. 07/17 BUN 41, Cr 2.5, and a GFR 19. This can be due to the severe protein malnutrition and dehydration that she has because of the inability to keep food down and vomiting over the past couple months. Pt had an retroperitoneal ultrasound done which found increased echogenicity of the kidneys which can be seen with medical renal disease, no hydronephrosis, and a left renal simple cysts. See report for full detail. Pt continues to have low urine output so consideration for a CT is being made, however due to her labs indicating RISA, dye can not be used. Plan: Continue hydration via NS IV and oral fluids/food as tolerated. Continue to draw daily BMP labs and monitor her Cr, BUN and GFR Continue to check I & O (5) UTI (urinary tract infection) Impression: Pt came in for a ground level fall and upon getting labs drawn up it was found that she had a WBC count of 32.6, her current WBC count as of 07/17 is 8.5. Her UA came back with >25 WBC and many bacteria, with a culture showing E. coli. Plan: With her WBC count back down wnl her antibiotics are being switched to Oral Ci pro 250 mg BID which she will continue for 5 more days. (6) Hypokalemia Impression: Goal is to increase patients potassium back to wnl as to avoid any cardiac related problems. Pt presented on 07/14 with a 2.6 potassium and she was given potassium supplementation via Potassium Chloride 10 meq in 100 mls @ 100 mls/hr IV x4 bags on 07/14. Today on 07/15 she has a potassium of 2.8, 07/16 she has a potassium of 2.7. On 07/17 her potassium is 2.9 despite receiving Potassium Chloride 10 meq @ 100 mls/hr IV x4 bags on 07/16. Plan: Continue to monitor Potassium with daily BMP lab draws. Switch to Potassium Chloride 40 meq PO TID Encourage oral intake of food and water as tolerated (7) Hyperglycemia Impression: Pt had a glucose count of 191 this morning 07/14 upon admission, and then 161 later in the day. Today 07/15 her glucose is 137, 07/16 her glucose is 95, 07/17 her glucose is 88. Her A1c is 5.5. Plan: With the glucose wnl now and A1c in the non-diabetic range will continue to monitor the patients glucose (8) Fall Impression: Pt had a fall from ground level, denies hitting her head or LOC, however a head CT was done to check. CT came back with no acute findings, see report for full detail. The fall could be due to weakness caused by her severe protein-calorie malnurishment. Plan: Have PT and OT continue to work with the patient (9) ADD (attention deficit disorder) Impression: Pt has a diagnosed history of ADD, she is not currently taking adderall, due to her given potential for afib per her PCP on May 19, 2023. As such patient seems to get side tracked and takes a bit longer to respond to questions. She even told me that "I have ADD so that could affect the way I am". Plan: Continue to monitor patient (10) Atrial fibrillation Impression: Pt has a history of A-fib that was diagnosed via EKG on 05/06/2023. She was given meds for it then and had them filled, however she didn't end up taking the medications and instead threw them away. She was seen by her PCP for a follow-up and according to her PCPs notes, she defered any further cardiac testing. On she had another EKG done but was found in normal sinus rhythm with an 88 HR. Plan: Continue to monitor Pt HR and any other signs/symptoms of A-fib, if elevated above 100 for sustained time or experiancing signs/symptoms, get repeat EKG to look for A-fib. Qualifiers: Atrial fibrillation type: unspecified Qualified Code(s): I48.91 - Unspeci fied atrial fibrillation (11) MDD (major depressive disorder) Impression: Pt has a current diagnosis of MDD, recurrent episodes, moderate degree that she currently takes medications for. Said she currently is depressive and suicidal but has no plan in place or prior attempts. She did say that "she is looking for a plan". Plan: Monitor Pt Continue Burpropion SR 150 mg PO Continue Buspirone 15 mg PO Continue Paroxetine 40 mg PO (12) Anxiety Impression: Pt has a diagnosis of anxiety and is currently taking medications for it. Plan: Continue Bupropion SR 150 mg Buspirone 15 mg Paroxetine 40 mg
[2023-07-17] MEDS ORDERED: ALTEPLASE 2 MG VIAL IJ ONE (11:09)
[2023-07-17] MEDS: CIPROFLOXACIN 250 MG TABLET PO SCH ×2 (11:47→20:37)
--- NOTE | 2023-07-17 16:51 | CT Report ---
PROCEDURE: CHEST WO INDICATIONS: dysphagia of solids TECHNIQUE: Noncontrast 1mm axial images were acquired from the pulmonary apices to the posterior costophrenic an gles. Axial 5 mm soft tissue kernel reconstructions were performed as well as 8 mm axial MIP and cor onal and sagittal 5 mm reformations. For radiation dose reduction, the following was used: automate d exposure control, adjustment of mA and/or kV according to patient size. COMPARISON: CXR 07/14/2023, 05/06/2023. FINDINGS: Image quality: Excellent. Lungs and pleura: Right suprahilar pulmonary nodule measuring 2.4 x 2 cm, (2/21). Right upper lobe pu lmonary nodule measuring 1.4 x 1.3 cm, (2/10). There is surrounding interlobular septal thickening an d round glass opacity. Prominent vessel or additional pulmonary nodule in the right upper lobe. Trace right pleural effusion. No pneumothorax. No suspicious pulmonary nodules which require follow up. Mediastinum: Heart size is normal. No pericardial effusion. No large vessel abnormality. Right lower paratracheal lymph node measuring at 2.5 cm, (2/25). Right upper paratracheal lymph node measuring 1 cm, (2/12). Prominent right hilar lymph nodes. Oral contrast in the midesophagus. Chest wall and lower neck: Thyroid is unremarkable. No axillary or supraclavicular adenopathy by size . Right breast clip. Right axillary clips. Left-sided port catheter tip at the middle third of the SV C. With the Bones: No aggressive osseous abnormality. Possible prior fracture of the left ninth rib. Upper Abdomen: Left adrenal nodule measuring 2 cm, (2/64). 33 Hounsfield units. Subtle hypodensity in the left lobe liver, (2/63). IMPRESSION: 1. Right suprahilar pulmonary nodule measuring 2.4 cm and right upper lobe pulmonary nodule measuring 1.4 cm respectively. Concerning for metastatic disease. 2. Enlarged mediastinal and right hilar lymph nodes suspicious for metastatic adenopathy. 3. Trace right pleural effusion. 4. Left adrenal nodule measuring 2 cm is indeterminate for metastatic disease. Reviewed by: Bobby Abraham MD on 07/17/2023 4:50 PM PDT Approved by: Bobby Abraham MD on 07/17/2023 4:50 PM PDT Station ID: [id number]
[2023-07-17] MEDS: ONDANSETRON ODT 4 MG TABLET TL PRN (20:40)
--- NOTE | 2023-07-17 21:21 | PROVIDER PROGRESS NOTE ---
Hand Sign Writer Note - Hand Sign Writer Note Hand Sign Writer Note: Patient had CT scan done earlier today around 4 pm, scan done got a call at 9:[address] orderes to resume diet, diet resumed.
[2023-07-18] MEDS: SODIUM CHLORIDE FLUSH 0.9% 10 ML SYRINGE IVP SCH ×3 (00:06→17:40)
[2023-07-18] MEDS ORDERED: POTASSIUM CHLOR 10 MEQ/100 ML 10 MEQ/100 ML BAG IV SCH (09:00)
[2023-07-18 09:03] LABS: BASOPHILS % (AUTO) 0.7 %; EOSINOPHILS # (AUTO) 0.1 10^3/uL (0.0-0.7); HCT - HEMATOCRIT 30.2 % (37.0-47.0); HGB - HEMOGLOBIN 9.8 g/dL (12.0-16.0); LYMPHOCYTES # (AUTO) 0.6 10^3/uL (1.5-3.5); LYMPHOCYTES % (AUTO) 9.5 %; MEAN CORPUSCULAR HEMOGLOBIN 30.2 pg (27.0-31.0); MEAN CORPUSCULAR HGB CONC 32.5 g/dL (32.0-36.0); MEAN CORPUSCULAR VOLUME 92.9 fL (81.0-99.0); MEAN PLATELET VOLUME 10.6 fL (7.9-10.8); MONOCYTES # (AUTO) 0.7 10^3/uL (0.0-1.0); MONOCYTES % (AUTO) 10.7 %; NEUTROPHILS # (AUTO) 4.7 10^3/uL (1.5-6.6); NEUTROPHILS % (AUTO) 77.6 %; PLT - PLATELET COUNT 240 10^3/uL (130-450); RED BLOOD COUNT 3.25 10^6/uL (4.20-5.40); RED CELL DISTRIBUTION WIDTH 16.1 % (12.0-15.0); WHITE BLOOD COUNT 6.1 x10^3/uL (4.8-10.8)
[2023-07-18] MEDS: METOPROLOL TARTRATE 25 MG TABLET PO SCH ×2 (09:13→20:21)
[2023-07-18] MEDS: buPROPion SR 150 MG TABLET PO SCH ×2 (09:13→20:22)
[2023-07-18] MEDS: POTASSIUM CHLORIDE 20 MEQ TABLET PO SCH ×2 (09:13→20:21)
[2023-07-18 09:14] LABS: CALCIUM 8.6 mg/dL (8.5-10.3); CREATININE 1.8 mg/dL (0.6-1.3); POTASSIUM 3.4 mmol/L (3.5-4.5)
[2023-07-18] MEDS: ENOXAPARIN 30 MG/0.3 ML SYRINGE SUBQ SCH (09:14)
[2023-07-18] MEDS: CIPROFLOXACIN 250 MG TABLET PO SCH ×2 (09:14→20:22)
[2023-07-18] MEDS: polyethylene glycoL 3350 17 GM PACKET PO SCH (09:15)
--- NOTE | 2023-07-18 11:36 | PROVIDER PROGRESS NOTE ---
Subjective - Prog Note Date Prog Note Date: 07/18/23 Prog Note Time: 11:34 - Subjective Subjective: I spoke to her yesterday evening before I left shift. Her CT report has unfortunately revealed a probable diffusely metastatic cancer. With her history of breast cancer my presumption is that it is recurrent breast cancer with mets. She is understandably down in spirits because of this. print room worker informs me that her brother lives in [place] He is in [place] right now. Patient is mainly complaining of generalized weakness. Hard to swallow food. Diffuse musculoskeletal pain but no 1 joint or 1 muscle hurts. Denies chest pain, cough, shortness of breath. No abdominal pain. Yesterday the dayshift nurse was able to use [employer] to use her port. She has had a port in her left upper chest for close to 5 years now.She has been a difficult IV access and nursing asked permission to use and accessed the port Current Medications - Current Medications Current Medications: Active Medications Acetaminophen (Acetaminophen 325 Mg Tablet) 650 mg PO Q4HR PRN PRN Reason: Pain 1 to 4, or Fever Last Admin: 07/16/23 17:32 Dose: 650 mg Bupropion HCl (Bupropion Sr 150 Mg Tablet) 150 mg PO BID [facility] Last Admin: 07/18/23 09:13 Dose: 150 mg Ciprofloxacin (Ciprofloxacin 250 Mg Tablet) 250 mg PO BID [facility] Last Admin: 07/18/23 09:14 Dose: 250 mg Enoxaparin Sodium (Enoxaparin 30 Mg/0.3 Ml Syringe) 30 mg SUBQ DAILY [facility] Last Admin: 07/18/23 09:14 Dose: 30 mg Metoprolol Tartrate (Metoprolol Tartrate 25 Mg Tablet) 25 mg PO BID [facility] Last Admin: 07/18/23 09:13 Dose: 25 mg Ondansetron HCl (Ondansetron Odt 4 Mg Tablet) 4 mg TL Q6HR PRN PRN Reason: Nausea / Vomiting Last Admin: 07/17/23 20:40 Dose: 4 mg Ondansetron HCl (Ondansetron 4 Mg/2 Ml Vial) 4 mg IVP Q6HR PRN PRN Reason: Nausea / Vomiting Last Admin: 07/17/23 16:04 Dose: 4 mg Oxycodone HCl (Oxycodone 5 Mg Tablet) 5 mg PO Q4HR PRN PRN Reason: Pain 5 to 7 Polyethylene Glycol (Polyethylene Glycol 3350 17 Gm Packet) 17 gm PO DAILY [facility] Last Admin: 07/18/23 09:15 Dose: Not Given Potassium Chloride (Potassium Chloride 20 Meq Tablet) 40 meq PO BIDWM [facility] Sodium Chloride (Sodium Chloride Flush 0.9% 10 Ml Syringe) 10 ml IVP PRN PRN PRN Reason: NEEDED PER PROVIDER ORDERS Sodium Chloride (Sodium Chloride Flush 0.9% 10 Ml Syringe) 10 ml IVP 0100,0900,1700 [facility] Last Admin: 07/18/23 09:15 Dose: 10 ml Buspirone HCl 15 mg PO BID 05/06/23 buPROPion HCL [Bupropion HCl Sr] 150 mg PO BID 05/06/23 PARoxetine [Paxil] 40 mg PO HS 07/14/23 dilTIAZem HCL [Diltiazem 24Hr ER (LA)] 120 mg PO DAILY 07/14/23 Objective - Vital Signs/Intake & Output Reviewed Vital Signs: Yes Vital Signs: Vital Signs x48h Temp Pulse Resp BP BP Pulse Ox 07/18/23 09:13 157/82 H 07/18/23 07:26 36.8 C 69 18 157/82 H 97 Intake & Output: Intake & Output 07/15/23 07/16/23 07/17/23 07/18/23 23:59 23:59 23:59 23:59 Intake Total 3176.667 900 360 440 Output Total 390 820 500 850 Balance 2786.667 80 -140 -410 - Objective General Appearance: positive: Alert, Other (5 foot 6 inch woman at 85 kg, depressed affect, hirsute face) Eyes Bilateral: positive: PERRL, EOMI ENT: positive: No signs of dehydration Neck: positive: No JVD. negative: Stiff neck Respiratory: positive: No respiratory distress, Other (Port left upper chest. Right mastectomy). negative: Wheezes, Rales, Rhonchi Cardiovascular: positive: Regular rate & rhythm, Other (Port in left upper chest wall without fluctuance, redness, heat.) Abdomen: positive: Non-tender, No organomegaly, Nml bowel sounds, No distention Skin: positive: Warm, Dry Extremities: positive: Full ROM, Pedal edema (Nonpitting) Neurologic/Psychiatric: positive: Oriented x3, CN's nml (2-12). negative: Motor nml (Retropulsion, and nursing reports occasional tremors or jerking.) - Lab Results Fish Bones: 07/18/23 08:55 07/18/23 08:55 Other Labs: Lab Results x24hrs 07/18/23 07/18/23 Range/Units 08:55 08:55 WBC 6.1 (4.8-10.8) x10^3/uL RBC 3.25 L (4.20-5.40) 10^6/uL Hgb 9.8 L (12.0-16.0) g/dL Hct 30.2 L (37.0-47.0) % MCV 92.9 (81.0-99.0) fL MCH 30.2 (27.0-31.0) pg MCHC 32.5 (32.0-36.0) g/dL RDW 16.1 H (12.0-15.0) % Plt Count 240 (130-450) 10^3/uL MPV 10.6 (7.9-10.8) fL Neut # (Auto) 4.7 (1.5-6.6) 10^3/uL Lymph # (Auto) 0.6 L (1.5-3.5) 10^3/uL [place] # (Auto) 0.7 (0.0-1.0) 10^3/uL Eos # (Auto) 0.1 (0.0-0.7) 10^3/uL Baso # (Auto) 0.0 (0.0-0.1) 10^3/uL Absolute Nucleated RBC 0.00 x10^3/uL Nucleated RBC % 0.0 /100WBC Sodium 141 (135-145) mmol/L Potassium 3.4 L (3.5-4.5) mmol/L Chloride 106 (101-111) mmol/L Carbon Dioxide 28 (21-32) mmol/L Anion Gap 7.0 (6-13) BUN 29 H (6-20) mg/dL Creatinine 1.8 H (0.6-1.3) mg/dL Estimated GFR (MDRD) 28 L (>89) Glucose 88 (74-104) mg/dL Calcium 8.6 (8.5-10.3) mg/dL ABX Reporting Has patient been on IV antibiotics over the past 48 hours?: Yes Sepsis Event Note (H) - Evaluation Current Stage of Sepsis: Ruled out Assessment/Plan - Problem List (1) Malignant neoplasm metastatic to lung with unknown primary site Impression: We have found this diagnosis as a result of a work-up for dysphagia. Pt has not been able to keep solid food down for the past couple months, every time she would eat she got nauseated and ended up vomiting. However, since being admitted she is able to tolerate water and ate about 75% of her dinner on 07/14, and according to the patient she ate about 1/3 of her breakfast on 07/15. On 07/17 the patient had some clear ensure this morning but when she started dri nking it she started to burp and act like she was going to get sick, however she did not vomit. I discussed the case with radiology trying to figure out what radiologic study we could do at this institution since we do not have fluoroscopy. We agreed that a CT with esophagram might be a good start. This patient has a history of breast cancer. She is very vague. She cannot tell me staging, and if she had any adjuvant therapy. Findings on the CT showed a right suprahilar pulmonary nodule measuring 2.4 cm and a right upper lobe pulmonary nodule measuring 1.4 cm. It looks like metastatic disease. She has enlarged mediastinal and right hilar lymph nodes suspicious for metastatic adenopathy. A trace right pleural effusion. A left adrenal nodule that is 2 cm and indeterminant enough that cannot really see if its malignant in his parents. On the right lung there is surrounding interlobular septal thickening with groundglass opacity. Oral contrast goes to the mid esophagus. There is a subtle hypodensity in the left lobe of the liver. Clips are seen in her right breast from previous surgery. Plan: Case discussed with social work and case management. Patient needs to followup with primary care provider JAYME. She is usually followed by Dr. Faizan Albert in [place]. But he is on leave until November. I am hoping that someone in his office can see her quickly. She then needs to be referred for a biopsy for tissue diagnosis. Because of the retropulsion, muted affect, occasional forgetfulness and the nurses reporting occasional jerking I was going to get an MRI of the brain. But she has clips from her previous mastectomy. She also still has a GFR that is not quite at goal. But her creatinine has improved steadily since admission. I discussed this with the technical sales representative. He shares with me that most of his clips are now titanium. He feels that she would be okay to get an MRI of the brain with and without gadolinium.I feel she is okay to get the gadolinium even with the GFR in the 20s. (2) Severe protein-calorie malnutrition Impression: Pt has lost 15kg of body weight over the past 2 months equating to 20% total body weight due to not eating because she vomits every time she eats solid foods leading to weakness and inability to cook food for herself. She is able to tolerate water and ate about 75% of her dinner last night 07/14, and according to the patient she ate about 1/3 of her breakfast on 07/15. She is tolerating the food well with no vomiting but has constant nausea that medication is unable to help with. Nutrition has been working with us on this patient. Plan: Encourage eating and drinking as the patient is able to tolerate it. (3) E coli bacteremia Impression: Pt presented to the ED from a fall at ground level. Upon getting her lab work back she was found to have an initial WBC of 32.6, 07/15 it is 27.2, 07/16 it is 15.1, 07/17 it is 8.5 which it is back wnl. The patient also has a positive UA back on 07/14 leading to a diagnosis of UTI, however with a count of 32.6 there is suspicion that might be something else to drive her WBC to such a high number. She had a chest X-ray done which came back with no significant findings, see report for more detail. Blood cultures came back with with a prelimilary report of gram negative bacilli, indicating GRAM-NEGATIVE BACILLARY BACTEREMIA and the UA culture came back with a final report of E. coli. Plan: Continue to monitor her WBC count with daily CBC draws. Blood cultures were also positive for E. coli. She completed 4 days of IV ceftriaxone. On July 17 we switch her to oral Cipro. I initially thought I would give 5 more days. But I will aim for 3. Today is 2 of 3. (4) RISA (acute kidney injury) Impression: With each successive day of IV antibiotics and intravenous fluids, the patient is improving. Maintenance IV fluids have been stopped and we are encouraging p.o. intake.Retroperitoneal ultrasound was done to make sure there is no hydronephrosis or obstruction and that was negative.I attribute her acute kidney injury to poor p.o. intake/dehydration as noted with her weight loss, dysphagia and even problems swallowing fluids. Laboratory Tests 07/14/23 07/15/23 07/16/23 15:06 05:33 05:31 BUN 34 H 41 H 45 H Creatinine 2.7 H 3.5 H 3.1 H 07/17/23 07/18/23 05:15 08:55 BUN 41 H 29 H Creatinine 2.5 H 1.8 H I will continue to monitor kidney function to make sure she normalizes. Monitor with a daily BMP. I will examine her skin on a daily basis to make sure there is no subsequent "rash" after MRI with gadolinium (5) UTI (urinary tract infection) Impression: Pt came in for a ground level fall and upon getting labs drawn up it was found that she had a WBC count of 32.6. Her UA came back with >25 WBC and many bacteria, with a culture showing E. coli. White cell count normalized by July 17 at 8.5. Today she is 6.1. Continues to show improvement with current therapy. Plan: IV antibiotics switched to p.o. antibiotics on the . Probably stop antibiotics on July 19. (6) Hypokalemia Impression: She describes daily diarrhea for decades. She attributes it to irritable bowel syndrome. She is not on any potassium wasting medications. She does not have nausea and vomiting. She does have a poor p.o. intake with weight loss. I am assuming that the diarrhea is enough that her potassium is being lost through her gut. She is not on insulin that would be driving glucose and potassium into her cells. She has received 80 to 120 mEq of potassium on a daily basis (combined IV riders plus po) since admission. Today's potassium is finally above 3 at 3.4. Plan: Continue potassium 40 mEq. But I will reduce it from 3 times daily to twice daily to avoid overtreatment. (7) Hyperglycemia Impression: Pt had a glucose count of 191 07/14 upon admission, and then 161 later in the day. 07/15 her glucose was 137, 07/16 her glucose was 95, 07/17 her glucose was 88. Her A1c is 5.5. Plan: With the glucose wnl now and A1c in the non-diabetic range will continue to monitor the patients glucose only on morning BMP. No sliding scale needed. (8) Fall at home Impression: Pt had a fall from ground level, denies hitting her head or LOC, however a head CT was done to check. CT came back with no acute findings, see report for full detail. The fall could be due to weakness caused by her severe protein-calorie malnurishment. Plan: Have PT and OT continue to work with the patient (9) ADD (attention deficit disorder) Impression: Pt has a diagnosed history of ADD, she is not currently taking adderall, due to her given potential for afib per her PCP on May 19, 2023. As such patient seems to get side tracked and takes a bit longer to respond to questions. She even told me that "I have ADD so that could affect the way I am". Plan: Continue to monitor patient (10) Atrial fibrillation Impression: Pt has a history of A-fib that was diagnosed via EKG on 05/06/2023. She was given meds for it then and had them filled, however she didn't end up taking the med ications and instead threw them away. She was seen by her PCP for a follow-up and according to her PCPs notes, she defered any further cardiac testing. On 07/14 she had another EKG done but was found in normal sinus rhythm with an 88 HR. She did have 1 episode of atrial fibrillation while here in the hospital a few days ago. Asymptomatic. Converted on its own. Started on Lopressor 25 mg p.o. twice daily for rate control. Plan: Continue to monitor Pt HR and any other signs/symptoms of A-fib, if elevated above 100 for sustained time or experiancing signs/symptoms, get repeat EKG to look for A-fib. When she leaves, I do not know if she will take the Lopressor. But she is sure that she does not want anticoagulation with a DOAC or Coumadin. Especially in view of this new diagnosis of probable metastatic breast cancer, she is even more pragmatic about her approach to treatment right now Qualifiers: Atrial fibrillation type: unspecified Qualified Code(s): I48.91 - Unspecified atrial fibrillation (11) MDD (major depressive disorder) Impression: Pt has a current diagnosis of MDD, recurrent episodes, moderate degree that she currently takes medications for. Said she currently is depressive and suicidal but has no plan in place or prior attempts. She did say that "she is looking for a plan". Plan: Monitor Pt Continue Burpropion SR 150 mg PO Continue Buspirone 15 mg PO Continue Paroxetine 40 mg PO (12) Anxiety Impression: Pt has a diagnosis of anxiety and is currently taking medications for it. Plan: Continue Bupropion SR 150 mg Buspirone 15 mg Paroxetine 40 mg
[2023-07-18] MEDS ORDERED: GADOTERATE MEGLUMINE 10 MMOL/20 ML VIAL ONE (15:28)
[2023-07-18] MEDS: ONDANSETRON ODT 4 MG TABLET TL PRN (16:41)
[2023-07-18] MEDS ORDERED: GADOTERATE MEGLUMINE 10 MMOL/20 ML VIAL IVP ONE (16:42)
--- NOTE | 2023-07-18 17:03 | MRI Report ---
PROCEDURE: BRAIN W/WO INDICATIONS: metastatic breast ca w neuro changes CONTRAST: CLARISCAN 17ML TECHNIQUE: Noncontrast axial T1 spin echo, axial T2 fast spin echo, sagittal and axial FLAIR, coronal T2 fast sp in echo, axial gradient echo, axial diffusion and ADC through the brain. After the administration of contrast, axial and coronal T1 spin echo with fat saturation through the brain. COMPARISON: Correlation is made with head CT, 07/14/2023 FINDINGS: Image quality: Motion artifact is noted. CSF spaces: Basal cisterns are patent. No extra-axial fluid collections. Ventricles are normal in size and shape. Brain: Within the left basal ganglia, there is a 3 mm focus of abnormal diffusion-weighted signal, a s on series 8 image 39, with associated dark signal on ADC map. No midline shift. No intracranial bleeds or masses. No abnormal intracranial enhancement. There is cerebral volume loss for age. There is periventricular white matter chronic small vessel ischemic c hange. The brainstem appears normal. No chronic ischemic insults. Normal intravascular flow voids are present. No significant venous abno rmality can be seen. Prominent perivascular spaces are incidentally noted. Skull and face: Calvarial marrow is normal in signal. Orbits appear normal. Incidental note is ma de of bilateral lens replacements. Sinuses: Sinuses and mastoids appear clear. IMPRESSION: 3 mm focus of acute infarction within the left basal ganglia. No masses or abnormal enhancement can be seen. Age-appropriate brain parenchymal volume loss and chronic small vessel ischemic change can be seen. Reviewed by: Shaji Zarate MD on 07/18/2023 4:01 PM FARHANA Approved by: Shaji Zarate MD on 07/18/2023 4:01 PM FARHANA Station ID: [id number]
[2023-07-18] MEDS ORDERED: METOCLOPRAMIDE 10 MG/2 ML VIAL IVP PRN (18:18)
[2023-07-18] MEDS ORDERED: PROCHLORPERAZINE 10 MG/2 ML VIAL IVP PRN (18:19)
[2023-07-19] MEDS: SODIUM CHLORIDE FLUSH 0.9% 10 ML SYRINGE IVP SCH ×4 (00:27→23:28)
[2023-07-19 05:22] LABS: BASOPHILS # (AUTO) 0.1 10^3/uL (0.0-0.1); EOSINOPHILS # (AUTO) 0.2 10^3/uL (0.0-0.7); EOSINOPHILS % (AUTO) 2.4 %; HGB - HEMOGLOBIN 9.6 g/dL (12.0-16.0); LYMPHOCYTES # (AUTO) 0.8 10^3/uL (1.5-3.5); LYMPHOCYTES % (AUTO) 13.4 %; MEAN CORPUSCULAR HEMOGLOBIN 30.4 pg (27.0-31.0); MEAN CORPUSCULAR VOLUME 94.9 fL (81.0-99.0); MEAN PLATELET VOLUME 10.5 fL (7.9-10.8); MONOCYTES # (AUTO) 0.7 10^3/uL (0.0-1.0); MONOCYTES % (AUTO) 11.3 %; NEUTROPHILS # (AUTO) 4.5 10^3/uL (1.5-6.6); NEUTROPHILS % (AUTO) 71.3 %; PLT - PLATELET COUNT 264 10^3/uL (130-450); RED BLOOD COUNT 3.16 10^6/uL (4.20-5.40); RED CELL DISTRIBUTION WIDTH 16.2 % (12.0-15.0); WHITE BLOOD COUNT 6.3 x10^3/uL (4.8-10.8)
[2023-07-19 05:43] LABS: CALCIUM 8.6 mg/dL (8.5-10.3); CREATININE 1.5 mg/dL (0.6-1.3)
[2023-07-19] MEDS: buPROPion SR 150 MG TABLET PO SCH ×2 (09:24→20:51)
[2023-07-19] MEDS: CIPROFLOXACIN 250 MG TABLET PO SCH ×2 (09:24→20:51)
[2023-07-19] MEDS: POTASSIUM CHLORIDE 20 MEQ TABLET PO SCH ×2 (09:24→17:01)
[2023-07-19] MEDS: METOPROLOL TARTRATE 25 MG TABLET PO SCH ×2 (09:25→20:51)
[2023-07-19] MEDS: polyethylene glycoL 3350 17 GM PACKET PO SCH (09:25)
[2023-07-19] MEDS: ENOXAPARIN 40 MG/0.4 ML SYRINGE SUBQ SCH (09:25)
[2023-07-19] MEDS: ONDANSETRON 4 MG/2 ML VIAL IVP PRN (12:25)
--- NOTE | 2023-07-19 13:34 | PROVIDER PROGRESS NOTE ---
Subjective - Prog Note Date Prog Note Date: 07/19/23 Prog Note Time: 13:32 - Subjective Pt reports feeling: No change Subjective: She is still very weak. Tired. Legs just do not want to support her when she tries to get up. But nursing is able to get her up and she needs a two-person assist. She asked if I could please call her brother Az. He works for [employer] for an [employer]. He is currently in [employer]. He is at [phone]. Current Medications - Current Medications Current Medications: Active Medications Acetaminophen (Acetaminophen 325 Mg Tablet) 650 mg PO Q4HR PRN PRN Reason: Pain 1 to 4, or Fever Last Admin: 07/16/23 17:32 Dose: 650 mg Bupropion HCl (Bupropion Sr 150 Mg Tablet) 150 mg PO BID [facility] Last Admin: 07/19/23 09:24 Dose: 150 mg Ciprofloxacin (Ciprofloxacin 250 Mg Tablet) 250 mg PO BID [facility] Last Admin: 07/19/23 09:24 Dose: 250 mg Enoxaparin Sodium (Enoxaparin 40 Mg/0.4 Ml Syringe) 40 mg SUBQ DAILY [facility] Last Admin: 07/19/23 09:25 Dose: 40 mg Heparin Sodium (Beef Lung) (Heparin Flush 50 Units/5 Ml Syringe) 30 - 50 unit IVP PRN PRN PRN Reason: Port Protocol (<24 hours) Heparin Sodium (Beef Lung) (Heparin Flush 500 Units/5 Ml Syringe) 300 - 500 unit IVP PRN PRN PRN Reason: Port Protocol (>24 hours) Last Admin: 07/18/23 16:41 Dose: 500 unit Metoclopramide HCl (Metoclopramide 10 Mg/2 Ml Vial) 5 mg IVP Q6HR PRN PRN Reason: Nausea / Vomiting Metoprolol Tartrate (Metoprolol Tartrate 25 Mg Tablet) 25 mg PO BID [facility] Last Admin: 07/19/23 09:25 Dose: 25 mg Ondansetron HCl (Ondansetron Odt 4 Mg Tablet) 4 mg TL Q6HR PRN PRN Reason: Nausea / Vomiting Last Admin: 07/18/23 16:41 Dose: 4 mg Ondansetron HCl (Ondansetron 4 Mg/2 Ml Vial) 4 mg IVP Q6HR PRN PRN Reason: Nausea / Vomiting Last Admin: 07/19/23 12:25 Dose: 4 mg Oxycodone HCl (Oxycodone 5 Mg Tablet) 5 mg PO Q4HR PRN PRN Reason: Pain 5 to 7 Polyethylene Glycol (Polyethylene Glycol 3350 17 Gm Packet) 17 gm PO DAILY [facility] Last Admin: 07/19/23 09:25 Dose: 17 gm Potassium Chloride (Potassium Chloride 20 Meq Tablet) 40 meq PO BIDWM [facility] Last Admin: 07/19/23 09:24 Dose: 40 meq Prochlorperazine Edisylate (Prochlorperazine 10 Mg/2 Ml Vial) 10 mg IVP Q6HR PRN PRN Reason: Nausea / Vomiting Last Admin: 07/18/23 18:41 Dose: 10 mg Sodium Chloride (Sodium Chloride Flush 0.9% 10 Ml Syringe) 10 ml IVP PRN PRN PRN Reason: NEEDED PER PROVIDER ORDERS Sodium Chloride (Sodium Chloride Flush 0.9% 10 Ml Syringe) 10 ml IVP 0100,0900,1700 [facility] Last Admin: 07/19/23 09:26 Dose: 10 ml Buspirone HCl 15 mg PO BID 05/06/23 buPROPion HCL [Bupropion HCl Sr] 150 mg PO BID 05/06/23 PARoxetine [Paxil] 40 mg PO HS 07/14/23 dilTIAZem HCL [Diltiazem 24Hr ER ([place])] 120 mg PO DAILY 07/14/23 Objective - Vital Signs/Intake & Output Reviewed Vital Signs: Yes Vital Signs: Vital Signs x48h Temp Pulse Resp BP BP Pulse Ox 07/19/23 09:25 148/91 H 07/19/23 07:57 36.8 C 68 20 149/91 H 100 Intake & Output: Intake & Output 07/16/23 07/17/23 07/18/23 07/19/23 23:59 23:59 23:59 23:59 Intake Total 900 360 800 360 Output Total 237 400 4613 600 Balance 80 -140 -500 -240 - Objective General Appearance: positive: No acute distress, Alert, Other (Sad affect, muted affect, comfortable laying flat in bed.) Eyes Bilateral: positive: PERRL, EOMI ENT: positive: No signs of dehydration, Other (Hirsutism) Neck: positive: No JVD. negative: Stiff neck Respiratory: positive: No respiratory distress. negative: Wheezes, Rales, Rhonchi Cardiovascular: positive: Regular rate & rhythm Abdomen: positive: Non-tender, No organomegaly, Nml bowel sounds, No distention, Other (Bowel movement yesterday and today. Pure wick catheter. Nauseated. Not really eating much solid food) Skin: positive: Warm, Dry Extremities: positive: Full ROM, No pedal edema Neurologic/Psychiatric: positive: Oriented x3, CN's nml (2-12), Motor nml (Except for generalized weakness. No focal deficits.) - Lab Results Fish Bones: 07/19/23 05:00 07/19/23 05:00 Other Labs: Lab Results x24hrs 07/19/23 07/19/23 Range/Units 05:00 05:00 WBC 6.3 (4.8-10.8) x10^3/uL RBC 3.16 L (4.20-5.40) 10^6/uL Hgb 9.6 L (12.0-16.0) g/dL Hct 30.0 L (37.0-47.0) % MCV 94.9 (81.0-99.0) fL MCH 30.4 (27.0-31.0) pg MCHC 32.0 (32.0-36.0) g/dL RDW 16.2 H (12.0-15.0) % Plt Count 264 (130-450) 10^3/uL MPV 10.5 (7.9-10.8) fL Neut # (Auto) 4.5 (1.5-6.6) 10^3/uL Lymph # (Auto) 0.8 L (1.5-3.5) 10^3/uL [place] # (Auto) 0.7 (0.0-1.0) 10^3/uL Eos # (Auto) 0.2 (0.0-0.7) 10^3/uL Baso # (Auto) 0.1 (0.0-0.1) 10^3/uL Absolute Nucleated RBC 0.00 x10^3/uL Nucleated RBC % 0.0 /100WBC Sodium 142 (135-145) mmol/L Potassium 4.0 (3.5-4.5) mmol/L Chloride 108 (101-111) mmol/L Carbon Dioxide 30 (21-32) mmol/L Anion Gap 4.0 L (6-13) BUN 23 H (6-20) mg/dL Creatinine 1.5 H (0.6-1.3) mg/dL Estimated GFR (MDRD) 34 L (>89) Glucose 105 H (74-104) mg/dL Calcium 8.6 (8.5-10.3) mg/dL ABX Reporting Has patient been on IV antibiotics over the past 48 hours?: Yes Sepsis Event Note (H) - Evaluation Current Stage of Sepsis: Ruled out Assessment/Plan - Problem List (1) Malignant neoplasm metastatic to lung with unknown primary site Impression: We have found this diagnosis as a result of a work-up for dysphagia. Pt has not been able to keep solid food down for the past couple months, every time she would eat she got nauseated and ended up vomiting. However, since being admitted she is able to tolerate water and ate about 75% of her dinner on 07/14, and according to the patient she ate about 1/3 of her breakfast on 07/15. On 07/17 the patient had some clear ensure this morning but when she started drinking it she started to burp and act like she was going to get sick, however she did not vomit. I discussed the case with radiology trying to figure out what radiologic study we could do at this institution since we do not have fluoroscopy. We agreed that a CT with esophagram might be a good start. This patient has a history of breast cancer. She is very vague. She cannot tell me staging, and if she had any adjuvant therapy. Findings on the CT showed a right suprahilar pulmonary nodule measuring 2.4 cm and a right upper lobe pulmonary nodule measuring 1.4 cm. It looks like metastatic disease. She has enlarged mediastinal and right hilar lymph nodes suspicious for metastatic adenopathy. A trace right pleural effusion. A left adrenal nodule that is 2 cm and indeterminant enough that cannot really see if its malignant in his parents. On the right lung there is surrounding interlobular septal thickening with groundglass opacity. Oral contrast goes to the mid esophagus. There is a subtle hypodensity in the left lobe of the liver. Clips are seen in her right breast from previous surgery. Brain MRI shows an acute infarction within the left basal ganglia. No masses or abnormal enhancement. This is compared to her admission CT of the head. Plan: Case discussed with social work and case management. Patient needs to followup with primary care provider JAYME. She is usually followed by Dr. Faizan Albert in [place]. But he is on leave until November. I am hoping that someone in his office can see her quickly. She then needs to be referred for a biopsy for tissue diagnosis.I have faxed him yesterday's progress note. And hide I requested his office to make sure they make an appointment for this woman so that she can follow-up to get interventional radiology biopsy, and be referred for oncology evaluation. She states that she does not know if she wants to do treatment. But she does know what she wants to do. She would like to discuss this with an oncologist to see what her options are. To see what her prognosis is. If it looks too grim for her to go through, she may opt for hospice. But she does not know yet. (2) Left basal ganglia infarct. This would explain some of the patient's tremor, lack of motivation from a physical perspective. I am glad to say that this is not tumor. Physical therapy to work with the patient tomorrow. I anticipate transfer to [facility] facility tomorrow. She has been accepted at [facility]. I think my evaluation and therapy has been maximally achieved at this hospital. It is time for her to go to her next phase. (3) Severe protein-calorie malnutrition Impression: Pt has lost 15kg of body weight over the past 2 months equating to 20% total body weight due to not eating because she vomits every time she eats solid foods leading to weakness and inability to cook food for herself. She is able to tolerate water and ate about 75% of her dinner last night 07/14, and according to the patient she ate about 1/3 of her breakfast on 07/15. She is tolerating the food well with no vomiting but has constant nausea that medication is unable to help with. Nutrition has been working with us on this patient. Plan: Encourage eating and drinking as the patient is able to tolerate it. (4) E coli bacteremia Impression: Pt presented to the ED from a fall at ground level. Upon getting her lab work back she was found to have an initial WBC of 32.6, 07/15 it is 27.2, 07/16 it is 15.1, 07/17 it is 8.5 which it is back wnl. The patient also has a positive UA back on 07/14 leading to a diagnosis of UTI, however with a count of 32.6 there is suspicion that might be something else to drive her WBC to such a high number. She had a chest X-ray done which came back with no significant findings, see report for more detail. Blood cultures came back with with a prelimilary report of gram negative bacilli, indicating GRAM-NEGATIVE BACILLARY BACTEREMIA and the UA culture came back with a final report of E. coli. Plan: Continue to monitor her WBC count with daily CBC draws. Blood cultures were also positive for E. coli. She completed 4 days of IV ceftriaxone. On July 17 we switch her to oral Cipro. I initially thought I would give 5 more days. But I will aim for 3. Today is 2 of 3. (5) IRSA (acute kidney injury) Impression: With each successive day of IV antibiotics and intravenous fluids, the patient is improving. Maintenance IV fluids have been stopped and we are encouraging p.o. intake.Retroperitoneal ultrasound was done to make sure there is no hydronephrosis or obstruction and that was negative.I attribute her acute kidney injury to poor p.o. intake/dehydration as noted with her weight loss, dysphagia and even problems swallowing fluids. Laboratory Tests 07/14/23 07/15/23 07/16/23 15:06 05:33 05:31 BUN 34 H 41 H 45 H Creatinine 2.7 H 3.5 H 3.1 H 07/17/23 07/18/23 05:15 08:55 BUN 41 H 29 H Creatinine 2.5 H 1.8 H Laboratory Tests 07/19/23 05:00 BUN 23 H Creatinine 1.5 H I will continue to monitor kidney function to make sure she normalizes. Monitor with a daily BMP. I will examine her skin on a daily basis to make sure there is no subsequent "rash" after MRI with gadolinium. Today's creatinine continues to show improving renal function. She is almost approaching near normal. (5) E coli UTI (urinary tract infection) Impression: Pt came in for a ground level fall and upon getting labs drawn up it was found that she had a WBC count of 32.6. Her UA came back with >25 WBC and many bacteria, with a culture showing E. coli. White cell count normalized by July 17 at 8.5. Today she is 6.3. Continues to show improvement with current therapy. Plan: IV antibiotics switched to p.o. antibiotics on the . Probably stop antibiotics on July 19 which is tomorrow. Resolved or chroni medical problems (6) Hypokalemia Impression: She describes daily diarrhea for decades. She attributes it to irritable bowel syndrome. She is not on any potassium wasting medications. She does not have nausea and vomiting. She does have a poor p.o. intake with weight loss. I am assuming that the diarrhea is enough that her potassium is being lost through her gut. She is not on insulin that would be driving glucose and potassium into her cells. She received 80 to 120 mEq of potassium on a daily basis (combined IV riders plus po) since admission. I had aOn July 18 she was finally above 3 at 3.4. On 40 mEq p.o. 3 times daily. Yesterday I reduced her to 40 mEq twice daily and her potassium is normal today. Plan: Continue potassium 40 mEq Twice daily. Depending on tomorrow's potassium I may reduce it to 40 mill equivalents once a day. (7) Hyperglycemia Impression: Pt had a glucose count of 191 07/14 upon admission, and then 161 later in the day. 07/15 her glucose was 137, 07/16 her glucose was 95, 07/17 her glucose was 88. Her A1c is 5.5. Plan: With the glucose wnl now and A1c in the non-diabetic range will continue to monitor the patients glucose only on morning BMP. No sliding scale needed. (8) Fall at home Impression: Pt had a fall from ground level, denies hitting her head or LOC, however a head CT was done to check. CT came back with no acute findings, see report for full detail. The fall could be due to weakness caused by her severe protein-calorie malnurishment. Plan: Have PT and OT continue to work with the patient (9) ADD (attention deficit disorder) Impression: Pt has a diagnosed history of ADD, she is not currently taking adderall, due to her given potential for afib per her PCP on May 19, 2023. As such patient seems to get side tracked and takes a bit longer to respond to questions. She even told me that "I have ADD so that could affect the way I am". Plan: Continue to monitor patient (10) Atrial fibrillation Impression: Pt has a history of A-fib that was diagnosed via EKG on 05/06/2023. She was given meds for it then and had them filled, however she didn't end up taking the medications and instead threw them away. She was seen by her PCP for a follow-up and according to her PCPs notes, she defered any further cardiac testing. On 07/14 she had another EKG done but was found in normal sinus rhythm with an 88 HR. She did have 1 episode of atrial fibrillation while here in the hospital a few days ago. Asymptomatic. Converted on its own. Started on Lopressor 25 mg p.o. twice daily for rate control. Plan: Continue to monitor Pt HR and any other signs/symptoms of A-fib, if elevated above 100 for sustained time or experiancing signs/symptoms, get repeat EKG to look for A-fib. When she leaves, I do not know if she will take the Lopressor. But she is sure that she does not want anticoagulation with a DOAC or Coumadin. Especially in view of this new diagnosis of probable metastatic breast cancer, she is even more pragmatic about her approach to treatment right now Qualifiers: Atrial fibrillation type: unspecified Qualified Code(s): I48.91 - Unspecified atrial fibrillation (11) MDD (major depressive disorder) Impression: Pt has a current diagnosis of MDD, recurrent episodes, moderate degree that she currently takes medications for. Said she currently is depressive and suicidal but has no plan in place or prior attempts. She did say that "she is looking for a plan". Plan: Monitor Pt Continue Burpropion SR 150 mg PO Continue Buspirone 15 mg PO Continue Paroxetine 40 mg PO (12) Anxiety Impression: Pt has a diagnosis of anxiety and is currently taking medications for it. Plan: Continue Bupropion SR 150 mg Buspirone 15 mg Paroxetine 40 mg
[2023-07-20 05:34] LABS: BASOPHILS # (AUTO) 0.1 10^3/uL (0.0-0.1); BASOPHILS % (AUTO) 0.8 %; EOSINOPHILS # (AUTO) 0.2 10^3/uL (0.0-0.7); EOSINOPHILS % (AUTO) 3.2 %; HCT - HEMATOCRIT 30.7 % (37.0-47.0); HGB - HEMOGLOBIN 9.7 g/dL (12.0-16.0); LYMPHOCYTES % (AUTO) 13.1 %; MEAN CORPUSCULAR HEMOGLOBIN 29.8 pg (27.0-31.0); MEAN CORPUSCULAR HGB CONC 31.6 g/dL (32.0-36.0); MEAN CORPUSCULAR VOLUME 94.2 fL (81.0-99.0); MEAN PLATELET VOLUME 10.1 fL (7.9-10.8); MONOCYTES # (AUTO) 0.8 10^3/uL (0.0-1.0); MONOCYTES % (AUTO) 11.6 %; NEUTROPHILS # (AUTO) 5.1 10^3/uL (1.5-6.6); NEUTROPHILS % (AUTO) 70.5 %; PLT - PLATELET COUNT 269 10^3/uL (130-450); RED BLOOD COUNT 3.26 10^6/uL (4.20-5.40); RED CELL DISTRIBUTION WIDTH 16.3 % (12.0-15.0); WHITE BLOOD COUNT 7.3 x10^3/uL (4.8-10.8)
[2023-07-20 05:48] LABS: CALCIUM 8.8 mg/dL (8.5-10.3); CREATININE 1.4 mg/dL (0.6-1.3); POTASSIUM 4.5 mmol/L (3.5-4.5)
[2023-07-20 08:07] VITALS: O2SAT 95
[2023-07-20] MEDS: ENOXAPARIN 40 MG/0.4 ML SYRINGE SUBQ SCH (09:18)
[2023-07-20] MEDS: POTASSIUM CHLORIDE 20 MEQ TABLET PO SCH (09:19)
[2023-07-20] MEDS: CIPROFLOXACIN 250 MG TABLET PO SCH (09:20)
[2023-07-20] MEDS: buPROPion SR 150 MG TABLET PO SCH (09:20)
[2023-07-20] MEDS: METOPROLOL TARTRATE 25 MG TABLET PO SCH (09:21)
[2023-07-20] MEDS: SODIUM CHLORIDE FLUSH 0.9% 10 ML SYRINGE IVP SCH (09:23)
[2023-07-20] MEDS: polyethylene glycoL 3350 17 GM PACKET PO SCH (09:24)
--- NOTE | 2023-07-20 11:49 | Discharge Plan ---
"Discharge Plan for SNF / [facility] - Discharge Plan And Transition Orders Problem Reviewed?: Yes Disposition: 03 SNF DC/Xfer Condition: Good Allergies and Adverse Reactions: Allergies Allergy/AdvReac Type Severity Reaction Status Date / Time Sulfa (Sulfonamide Allergy Unknown Verified 05/31/23 18:03 Antibiotics) meloxicam AdvReac Unknown Verified 05/31/23 18:03 Health Concerns: 68-year-old female with major depressive disorder, panic disorder, suicidal ideation on a chronic basis who presents with progressive weakness over the last week. But this is superimposed over weight loss from dysphagia over the last few months. She is lost approximately 35 to 40 pounds. Her progressive weakness resulted in a fall and then being sent to the emergency room. In the emergency room she was found to be dehydrated, with a UTI, and profound generalized weakness. No focal deficit. She was in sinus tachycardia. She was seen in the emergency room a few weeks ago for the new onset atrial fibrillation, given medications, but she never picked them up and never took them. She does have a primary care provider who did address this in the office and she again declined to take the medicines for A-fib. Physical therapy began working with this morning because of the weakness. We started her on antibiotics for the UTI. And then we began evaluating the dysphagia. The patient was interesting. She kept on saying that her dysphagia was most likely related to some matization or psychiatric disorder. But when we would watch her try and swallow even liquids, she would have almost immediate reflux or emesis. We do not have fluoroscopy and as such were not able to do an upper GI. We substituted a CT esophagram. Unfortunately that CAT scan shows diffuse metastatic disease to lung, hilum, and mediastinum. She has a previous history of breast cancer. When I was evaluating some of her weakness and fatigue, I did an MRI of the brain. I was anticipating possible metastatic disease to the brain but she has had an acute thalamic infarct. Plan of Treatment: 1. She will be in [facility] facility temporarily to get her strength back up. She needs to be able to gain functional mobility to then allow her to have the strength to undergo what ever future therapy she needs for her metastatic breast cancer. 2. She needs to be seen by her primary care provider in follow-up because she must proceed as quickly as possible with a biopsy of the lesions that are seen on CAT scan. That biopsy will then determine her treatment. Of note, an MRI of the brain was done and she has had a thalamic infarct but no metastatic disease. Care Goals: She would like to get strong enough to return back to her home. And then she would like to proceed with an opinion from oncology about what her treatment options are. Assessment: Patient is alert, oriented to person place and situation. She is very sad. Very depressed. Her brother has a home in both [place] and [facility]. He also works for an [employer] company and is currently working in [employer]. He is her main support system. - SNF / [facility] Transition Orders Admit to (Facility): [facility] Under the care of (Name): Primary care provider is Faizan [facility], most likely team Discharge Diagnosis: 1. Weakness with fall 2. E. coli UTI 3. Severe protein calorie malnutrition 4. E. coli bacteremia 5. Acute kidney injury from dehydration 6. Hypokalemia 7. Hyperglycemia without diagnosis of diabetes 8. Fall at home 9. ADD 10. Major depressive disorder 11. Atrial fibrillation 12. Malignant neoplasm metastatic to lung with unknown primary site 13. Dysphagia Medicare Certification Statement: I certify that Post Hospital [facility] care is medically necessary on a continuing basis for any of the conditions for which she/he is receiving care during hospitalization. Notify PCP of admission and forward orders to primary provider for signature. Weight on admission and: Weekly Other Notification Orders: Call PCP immediately if patient develops dyspnea, chest pain/tightness or edema. House Bowel Program: Yes Additional Bowel Program Orders: If no BM after 2 days, nurse may give M.O.M. 30ml PO PRN and/or ducolax Supp 1 [place] and/or STEPHANIE 250mg P.O., and/or senna 1-2 tabs PO. On day 3 nurse may give repeat above order until residents constipation is resolved. Annual Influenza Vaccine (between Jun 05 and January 02): Yes Two-step PPD per [facility] 248-235 or approved exception documents: Yes Medication Orders: PLEASE REFER TO THE DISCHARGE MEDICATION LIST. Insulin Orders?: No - Medications New Prescriptions: Prochlorperazine [Compazine] 5 mg PO Q6H PRN #1 tablet PRN Reason: Nausea / Vomiting - Diet Type: Geriatric [facility] Liquids: [place] thick Supplements: She is intermittently able to swallow solid food. She can try solids May have monthly special meal: Yes - Therapies | Activity Therapy: Evaluation | Treat if indicated: PT, OT, Swallowing / ST Rehabilitation Potential: Return to independent living Activity: Activity as Tolerated Assistance Devices: Walker Follow Up: Faizan Albert MD @ [facility]"
[2023-07-20 15:07] VITALS: BP 144/76
--- NOTE | 2023-07-20 17:36 | DISCHARGE SUMMARY ---
Discharge Summary Admit Date: 07/14/23 Discharge Date: 07/20/23 Discharging Provider: Alissa Garcia MD Primary Care Provider: Faizan Henry MD [facility] Code Status: Do Not Attempt Resuscitation Condition at Discharge: Good Discharge Disposition: 03 SNF DC/Xfer - DIAGNOSES Discharge Diagnoses with Status of Each Condition: 1. Weakness with fall 2. E. coli UTI 3. Severe protein calorie malnutrition 4. E. coli bacteremia 5. Acute kidney injury from dehydration 6. Hypokalemia 7. Hyperglycemia without diagnosis of diabetes 8. Fall at home 9. ADD 10. Major depressive disorder 11. Atrial fibrillation 12. Malignant neoplasm metastatic to lung with unknown primary site 13. Dysphagia - HPI History of Present Illness: Patient is a 68-year-old female With prior history of atrial fibrillation (not compliant with medications recently prescribed for A-fib), mental health disorder presenting for evaluation of a ground-level fall which occurred at home overnight. Patient states that she was walking with her walker when she lost her strength and fell down to the ground. She did not hit her head or have LOC. She states that she was too weak to get back up but was able to crawl to call for EMS this morning. She states that she has been feeling weak for several days and has had a poor appetite as she does not have energy to cook for herself. EMS stated that her house appeared to be in a state of disarray with and moldy food. Patient was recently seen here for mental health related concerns and also noted at that time to be in A-fib. She was sent with prescriptions for diltiazem and Eliquis but did not appear to fill these prescriptions and is currently not on a blood thinner. Pt has not been able to hold any food down for the past couple months, anything she eats she ends up vomiting it back up with the most recent case being yesterday morning where she vomited a couple times after breakfast. She has had a weight loss of 35 pounds and an increase in generalized fatigue in the past couple months due to her not being able to eat. She has noticed that she has nee ded to get up in the middle of the night to urinate 1-2 times a night. Pt denies any chest pain, fever, chills, blood or coffee ground material in emesis, changes in bowel habits, dysuria, increase in frequency, urgancy or blood in urine. - Past Medical History Cardiovascular: reports: Hypertension, Atrial fibrillation (Currently does not take any medication for it as "her doctor didn't prescribe her any" ) Respiratory: reports: COPD, Sleep apnea Neuro: reports: None Endocrine/Autoimmune: reports: None GI: reports: None, Hemorrhoids WEIGHT LOSS CONSULTANT: reports: None : reports: None HEENT: reports: None Psych: reports: Depression, Anxiety, ADD/ADHD Musculoskeletal: reports: Osteoarthritis Derm: reports: None MRSA Hx?: Yes Other Past Medical History: Pt states she had MRSA 5 years ago - Past Surgical History General: reports: Cholecystectomy Ortho: reports: Knee replacement /WEIGHT LOSS CONSULTANT: reports: Mastectomy, Other HEENT: reports: Cataracts - CONSULTS | PROCEDURES Procedures: Chest x-ray with out consolidation or pleural effusion. Low lung volumes. Head CT without acute intracranial abnormalities and chronic findings of. Ventricular white matter disease. Ventriculomegaly. Volume loss. Retroperitoneal ultrasound done for acute kidney injury had increased echogenicity of the kidneys seen with medical renal disease, but no hydronephrosis. She had a simple left renal cyst. Chest CT done for dysphagia had right suprahilar pulmonary nodule and right upper lobe pulmonary nodule concerning for metastatic disease. Enlarged mediastinal and right hilar nodes suspicious for metastatic adenopathy. Trace right pleural effusion. Left adrenal nodule that was 2 cm and indeterminant for disease. Brain MRI had a 3 mm focus of acute infarction within the left basal ganglia. No masses or abnormal enhancement. Blood cultures positive for E. coli on July. Urine culture positive for E. coli on July 14. - HOSPITAL COURSE Hospital Course: The patient was initially admitted as a dehydration with acute renal insufficiency due to metabolic encephalopathy, poor p.o. intake. The cause of her encephalopathy was the dehydration and a E. coli bacteremia as well as E. coli UTI. She was treated with antibiotics, hydration. We made sure that she did not have obstruction and there is no hydro on retroperitoneal ultrasound. When she started recovering and becoming more alert, and more lucid with speech patterns, she shared that she had been losing weight for the last few months. She lost possibly 35 to 40 pounds. She attributed it to this new dysphagia. Every time she tried to swallow something it which seem to come right back up. She denied pain with swallowing. She also told is that she felt it was psychiatric. She has suicidal ideation but denies plans. She is just very depressed. She does see a counselor. In working up her dysphagia, we cannot do an upper GI because we do not have fluoroscopy. I spoke to radiology and the mo st we could do with a CT esophagram. This CT esophagram did not show tumor in the esophagus. However the findings of nodules in the lung, hilar and mediastinal adenopathy was seen. She has a history of breast cancer. She is very sad about this. But she says she is not necessarily going to decli ne treatment. She would like to get a biopsy, and then be referred to oncology to discuss her treatment options. I have faxed the request to her primary care provider office at [facility]. Her PCP is Faizan henry MD. His office told me that he is on leave until November. But the fax was to the office in general as well as his director medical writing. She is still weak. Fatigue. She worked with physical therapy who recommends that she received skilled rehab. As such she was transition to [facility]. She still needs 1 more day of antibiotic therapy to complete treatment for the UTI and that was [facility].She was hyperkalemic through her stay and required anywhere between 80 and as high as 120 mEq of potassium a day. At discharge potassium was 4.5. A1c was 5.5% and done because of a random hyperglycemia. Creatinine on admission was 2.6. She peaked at 3.5. By discharge she was 1.4. At discharge temperature is 37.2. Heart rate 67. Blood pressure 144/76. Respirations 20. 95% on room air. She is 5 foot 6 inches tall. 85 kg. Sad, depressed female who is alert, oriented to person, place, situation. Neck is supple. No adenopathy. Lungs have diminished breath sounds at the bases but they are clear. There is no acute respiratory distress. She has a regular rate and rhythm. And abdomen has soft, nontender findings. Extremities have trace edema. No focal deficits. I am not finding any neurological findings of the thalamic infarct. Greater than 30 minutes was spent coordinating discharge This document was made in part using voice recognition software. While efforts are made to proofread this document, sound alike and grammatical errors may occur. - ALLERGIES Allergies/Adverse Reactions: Allergies Allergy/AdvReac Type Severity Reaction Status Date / Time Sulfa (Sulfonamide Allergy Unknown Verified 05/31/23 18:03 Antibiotics) meloxicam AdvReac Unknown Verified 05/31/23 18:03 - MEDICATIONS Home Medications: Ambulatory Orders Medication Instructions Recorded Confirmed Acetaminophen [Tylenol] 650 mg PO Q4HR PRN tab 07/20/23 Buspirone HCl 15 mg PO BID #0 07/20/23 07/14/23 Ciprofloxacin [Cipro] 250 mg PO BID tab 07/20/23 PARoxetine [Paxil] 40 mg PO HS #0 07/20/23 07/14/23 Potassium Chloride [K-Dur] 40 meq PO DAILY tab 07/20/23 Prochlorperazine [Compazine] 5 mg PO Q6H PRN #1 tablet 07/20/23 buPROPion HCL [Bupropion HCl Sr] 150 mg PO BID #0 07/20/23 07/14/23 dilTIAZem HCL [Diltiazem 24Hr ER 120 mg PO DAILY #0 07/20/23 07/14/23 (LA)] - LABS Result Diagrams: 07/20/23 05:19 07/20/23 05:19 - SEPSIS Current Stage of Sepsis: Ruled out
== END 2023-07-20 13:35 | DRG 689 ==
LOC: EDUNIT# → ED 09:09 → MS2 12:26
PROVIDERS: ADMIT Specialist; ATTEND Specialist
DX: N39.0 Urinary tract infection, site not specified (principal); W18.39XA Other fall on same level, initial encounter; E43 Unspecified severe protein-calorie malnutrition; I63.9 Cerebral infarction, unspecified; G93.41 Metabolic encephalopathy; N17.9 Acute kidney failure, unspecified; F32.A Depression, unspecified; C78.01 Secondary malignant neoplasm of right lung; R45.851 Suicidal ideations; I48.92 Unspecified atrial flutter; B96.20 Unspecified Escherichia coli [E. coli] as the cause of diseases classified elsewhere; E86.0 Dehydration; E87.6 Hypokalemia; R73.9 Hyperglycemia, unspecified; F98.8 Other specified behavioral and emotional disorders with onset usually occurring in childhood and adolescence; F32.9 Major depressive disorder, single episode, unspecified; I48.91 Unspecified atrial fibrillation; C80.1 Malignant (primary) neoplasm, unspecified; R13.10 Dysphagia, unspecified; T46.1X6A Underdosing of calcium-channel blockers, initial encounter; T45.516A Underdosing of anticoagulants, initial encounter; W18.30XA Fall on same level, unspecified, initial encounter; R53.1 Weakness; R63.4 Abnormal weight loss; I10 Essential (primary) hypertension; J44.9 Chronic obstructive pulmonary disease, unspecified; G47.30 Sleep apnea, unspecified; Z86.14 Personal history of Methicillin resistant Staphylococcus aureus infection; F41.9 Anxiety disorder, unspecified; R35.1 Nocturia; Z68.30 Body mass index [BMI] 30.0-30.9, adult; Z91.128 Patient's intentional underdosing of medication regimen for other reason; Y92.009 Unspecified place in unspecified non-institutional (private) residence as the place of occurrence of the external cause; Z85.3 Personal history of malignant neoplasm of breast; Z87.891 Personal history of nicotine dependence
CPT/HCPCS: 36415; 70450; 70553; 71045; 71250; 76770; 80048; 80053; 81001; 82550; 83036; 83605; 83690; 83735; 85025; 87040; 87086; 87150; 87181; 93005; 96365; 97110; 97116; 97161; 97166; 97530; 97535; 99285; A9270; A9575; J1650; J2997; Q0162; 81003; 84132

== ENCOUNTER 2023-07-28 08:00 | Outpatient (CLI) | payer MEDICARE ==
[2023-07-28 19:01] LABS: BASOPHILS # (AUTO) 0.1 10^3/uL (0.0-0.1); BASOPHILS % (AUTO) 1.4 %; EOSINOPHILS # (AUTO) 0.1 10^3/uL (0.0-0.7); EOSINOPHILS % (AUTO) 1.3 %; HCT - HEMATOCRIT 32.9 % (37.0-47.0); HGB - HEMOGLOBIN 10.6 g/dL (12.0-16.0); LYMPHOCYTES # (AUTO) 1.4 10^3/uL (1.5-3.5); LYMPHOCYTES % (AUTO) 19.3 %; MEAN CORPUSCULAR HGB CONC 32.2 g/dL (32.0-36.0); MEAN CORPUSCULAR VOLUME 93.2 fL (81.0-99.0); MEAN PLATELET VOLUME 9.6 fL (7.9-10.8); MONOCYTES # (AUTO) 0.5 10^3/uL (0.0-1.0); MONOCYTES % (AUTO) 7.6 %; NEUTROPHILS # (AUTO) 4.9 10^3/uL (1.5-6.6); PLT - PLATELET COUNT 416 10^3/uL (130-450); RED BLOOD COUNT 3.53 10^6/uL (4.20-5.40); RED CELL DISTRIBUTION WIDTH 16.3 % (12.0-15.0)
[2023-07-28 19:20] LABS: ALBUMIN 3.5 g/dL (3.2-5.5); BILIRUBIN,TOTAL 0.4 mg/dL (0.2-1.0); CALCIUM 9.2 mg/dL (8.5-10.3); CREATININE 1.4 mg/dL (0.6-1.3); POTASSIUM 3.7 mmol/L (3.5-4.5); TOTAL PROTEIN 6.9 g/dL (6.4-8.9)
== END 2023-07-28 23:59 | disposition home or self-care (01) ==
LOC: LAB 08:00
PROVIDERS: ATTEND Registered Nurse
DX: E87.6 Hypokalemia (principal); R11.2 Nausea with vomiting, unspecified
CPT/HCPCS: 36415; 80053; 85025

== ENCOUNTER 2023-09-03 08:00 | Outpatient (CLI) | payer MEDICARE | END 2023-09-03 23:59 | disposition home or self-care (01) | LOC: LAB.R 08:00 | DX: C34.90 Malignant neoplasm of unspecified part of unspecified bronchus or lung (principal); E43 Unspecified severe protein-calorie malnutrition | CPT/HCPCS: 36415; 84134 ==

== ENCOUNTER 2023-09-06 08:00 | Outpatient (CLI) | payer MEDICARE ==
[2023-09-06 15:01] LABS: BASOPHILS # (AUTO) 0.1 10^3/uL (0.0-0.1); EOSINOPHILS # (AUTO) 0.1 10^3/uL (0.0-0.7); EOSINOPHILS % (AUTO) 0.8 %; HCT - HEMATOCRIT 41.8 % (37.0-47.0); HGB - HEMOGLOBIN 13.5 g/dL (12.0-16.0); LYMPHOCYTES # (AUTO) 1.4 10^3/uL (1.5-3.5); LYMPHOCYTES % (AUTO) 12.9 %; MEAN CORPUSCULAR HEMOGLOBIN 31.2 pg (27.0-31.0); MEAN CORPUSCULAR HGB CONC 32.3 g/dL (32.0-36.0); MEAN CORPUSCULAR VOLUME 96.5 fL (81.0-99.0); MEAN PLATELET VOLUME 11.1 fL (7.9-10.8); MONOCYTES # (AUTO) 0.9 10^3/uL (0.0-1.0); MONOCYTES % (AUTO) 8.2 %; NEUTROPHILS # (AUTO) 8.1 10^3/uL (1.5-6.6); NEUTROPHILS % (AUTO) 76.6 %; PLT - PLATELET COUNT 375 10^3/uL (130-450); RED BLOOD COUNT 4.33 10^6/uL (4.20-5.40); RED CELL DISTRIBUTION WIDTH 13.5 % (12.0-15.0); WHITE BLOOD COUNT 10.6 x10^3/uL (4.8-10.8)
== END 2023-09-06 23:59 | disposition home or self-care (01) ==
LOC: LAB.R 08:00
PROVIDERS: ATTEND Registered Nurse
DX: C34.90 Malignant neoplasm of unspecified part of unspecified bronchus or lung (principal)
CPT/HCPCS: 85025

== ENCOUNTER 2023-09-10 08:00 | Outpatient (CLI) | payer MEDICARE ==
[2023-09-10 19:30] LABS: BASOPHILS # (AUTO) 0.1 10^3/uL (0.0-0.1); BASOPHILS % (AUTO) 0.9 %; EOSINOPHILS # (AUTO) 0.1 10^3/uL (0.0-0.7); HCT - HEMATOCRIT 37.2 % (37.0-47.0); HGB - HEMOGLOBIN 12.2 g/dL (12.0-16.0); LYMPHOCYTES % (AUTO) 11.8 %; MEAN CORPUSCULAR HEMOGLOBIN 30.9 pg (27.0-31.0); MEAN CORPUSCULAR HGB CONC 32.8 g/dL (32.0-36.0); MEAN CORPUSCULAR VOLUME 94.2 fL (81.0-99.0); MEAN PLATELET VOLUME 11.3 fL (7.9-10.8); MONOCYTES # (AUTO) 0.6 10^3/uL (0.0-1.0); MONOCYTES % (AUTO) 7.3 %; NEUTROPHILS # (AUTO) 6.4 10^3/uL (1.5-6.6); NEUTROPHILS % (AUTO) 78.4 %; PLT - PLATELET COUNT 306 10^3/uL (130-450); RED BLOOD COUNT 3.95 10^6/uL (4.20-5.40); RED CELL DISTRIBUTION WIDTH 13.5 % (12.0-15.0); WHITE BLOOD COUNT 8.2 x10^3/uL (4.8-10.8)
[2023-09-10 19:54] LABS: ALBUMIN 3.3 g/dL (3.2-5.5); BILIRUBIN,TOTAL 0.3 mg/dL (0.2-1.0); CALCIUM 9.2 mg/dL (8.5-10.3); CREATININE 1.2 mg/dL (0.6-1.3); POTASSIUM 3.5 mmol/L (3.5-4.5); TOTAL PROTEIN 6.7 g/dL (6.4-8.9)
== END 2023-09-10 23:59 | disposition home or self-care (01) ==
LOC: LAB.R 08:00
DX: C34.90 Malignant neoplasm of unspecified part of unspecified bronchus or lung (principal)
CPT/HCPCS: 36415; 80053; 85025

== ENCOUNTER 2023-10-19 08:00 | Outpatient (CLI) | payer MEDICARE, MEDICAID ==
[2023-10-19 19:53] LABS: BASOPHILS % (AUTO) 0.6 %; EOSINOPHILS # (AUTO) 0.1 10^3/uL (0.0-0.7); EOSINOPHILS % (AUTO) 1.4 %; HGB - HEMOGLOBIN 10.9 g/dL (12.0-16.0); LYMPHOCYTES # (AUTO) 1.3 10^3/uL (1.5-3.5); LYMPHOCYTES % (AUTO) 17.8 %; MEAN CORPUSCULAR HEMOGLOBIN 30.7 pg (27.0-31.0); MEAN CORPUSCULAR HGB CONC 32.1 g/dL (32.0-36.0); MEAN CORPUSCULAR VOLUME 95.8 fL (81.0-99.0); MEAN PLATELET VOLUME 10.1 fL (7.9-10.8); MONOCYTES # (AUTO) 0.6 10^3/uL (0.0-1.0); MONOCYTES % (AUTO) 8.2 %; NEUTROPHILS # (AUTO) 5.1 10^3/uL (1.5-6.6); NEUTROPHILS % (AUTO) 71.7 %; PLT - PLATELET COUNT 298 10^3/uL (130-450); RED BLOOD COUNT 3.55 10^6/uL (4.20-5.40); RED CELL DISTRIBUTION WIDTH 13.3 % (12.0-15.0); WHITE BLOOD COUNT 7.1 x10^3/uL (4.8-10.8)
== END 2023-10-19 23:59 | disposition home or self-care (01) ==
LOC: LAB.R 08:00
DX: E87.6 Hypokalemia (principal); I48.20 Chronic atrial fibrillation, unspecified
CPT/HCPCS: 36415; 80051; 85025

== ENCOUNTER 2023-10-30 09:15 | Outpatient (CLI) | payer MEDICARE, MEDICAID ==
[2023-10-30 09:47] LABS: ALBUMIN 3.4 g/dL (3.2-5.5); BILIRUBIN,TOTAL 0.3 mg/dL (0.2-1.0); CALCIUM 9.2 mg/dL (8.5-10.3); CREATININE 1.1 mg/dL (0.6-1.3); MAGNESIUM 1.5 mg/dL (1.7-2.3); POTASSIUM 4.2 mmol/L (3.5-4.5); TOTAL PROTEIN 6.9 g/dL (6.4-8.9)
== END 2023-10-30 09:16 | disposition home or self-care (01) ==
LOC: LAB.R 09:15
PROVIDERS: ATTEND Registered Nurse
DX: E61.2 Magnesium deficiency (principal)
CPT/HCPCS: 80053; 83735

== ENCOUNTER 2023-11-13 13:34 | Outpatient (CLI) | payer MEDICARE, MEDICAID ==
[2023-11-13 14:09] LABS: ALBUMIN 3.7 g/dL (3.2-5.5); ALBUMIN/GLOBULIN RATIO 1.1 (1.0-2.2); BILIRUBIN,TOTAL 0.4 mg/dL (0.2-1.0); CALCIUM 9.3 mg/dL (8.5-10.3); CREATININE 2.4 mg/dL (0.6-1.3); MAGNESIUM 1.4 mg/dL (1.7-2.3); POTASSIUM 4.5 mmol/L (3.5-4.5); TOTAL PROTEIN 7.2 g/dL (6.4-8.9)
== END 2023-11-13 13:35 | disposition home or self-care (01) ==
LOC: LAB 13:34 → LAB.R 13:35
PROVIDERS: ATTEND Registered Nurse
DX: C34.90 Malignant neoplasm of unspecified part of unspecified bronchus or lung (principal)
CPT/HCPCS: 80053; 83735; 85025

== ENCOUNTER 2023-11-21 08:00 | Outpatient (CLI) | payer MEDICARE, MEDICAID ==
[2023-11-21 15:53] LABS: BASOPHILS % (AUTO) 0.7 %; EOSINOPHILS % (AUTO) 0.4 %; HCT - HEMATOCRIT 28.6 % (37.0-47.0); HGB - HEMOGLOBIN 9.4 g/dL (12.0-16.0); LYMPHOCYTES # (AUTO) 1.3 10^3/uL (1.5-3.5); LYMPHOCYTES % (AUTO) 28.4 %; MEAN CORPUSCULAR HEMOGLOBIN 31.3 pg (27.0-31.0); MEAN CORPUSCULAR HGB CONC 32.9 g/dL (32.0-36.0); MEAN CORPUSCULAR VOLUME 95.3 fL (81.0-99.0); MEAN PLATELET VOLUME 9.2 fL (7.9-10.8); MONOCYTES # (AUTO) 0.6 10^3/uL (0.0-1.0); MONOCYTES % (AUTO) 13.2 %; NEUTROPHILS # (AUTO) 2.5 10^3/uL (1.5-6.6); NEUTROPHILS % (AUTO) 56.2 %; PLT - PLATELET COUNT 222 10^3/uL (130-450); RED CELL DISTRIBUTION WIDTH 12.9 % (12.0-15.0); WHITE BLOOD COUNT 4.5 x10^3/uL (4.8-10.8)
[2023-11-21 15:56] LABS: ALBUMIN 3.4 g/dL (3.2-5.5); ALBUMIN/GLOBULIN RATIO 1.1 (1.0-2.2); BILIRUBIN,TOTAL 0.3 mg/dL (0.2-1.0); CALCIUM 8.9 mg/dL (8.5-10.3); CREATININE 2.3 mg/dL (0.6-1.3); MAGNESIUM 1.5 mg/dL (1.7-2.3); POTASSIUM 5.1 mmol/L (3.5-4.5); TOTAL PROTEIN 6.6 g/dL (6.4-8.9)
== END 2023-11-21 23:59 | disposition home or self-care (01) ==
LOC: LAB.R 08:00
PROVIDERS: ATTEND Registered Nurse
DX: I10 Essential (primary) hypertension (principal); I48.20 Chronic atrial fibrillation, unspecified; E61.2 Magnesium deficiency
CPT/HCPCS: 80053; 83735; 85025

== ENCOUNTER 2023-11-26 08:00 | Outpatient (CLI) | payer MEDICARE, MEDICAID ==
[2023-11-26 17:25] LABS: CALCIUM 8.8 mg/dL (8.5-10.3); POTASSIUM 3.9 mmol/L (3.5-4.5)
== END 2023-11-26 23:59 | disposition home or self-care (01) ==
LOC: LAB.R 08:00
PROVIDERS: ATTEND Registered Nurse
DX: E87.6 Hypokalemia (principal)
CPT/HCPCS: 80048

== ENCOUNTER 2023-11-26 08:09 | Day surgery (SDC) | payer MEDICARE, MEDICAID ==
[2023-11-26 09:38] VITALS: O2SAT 99
[2023-11-26 10:07] VITALS: BP 144/82
--- NOTE | 2023-11-26 10:10 | XRAY Report ---
PROCEDURE: Chest for Line Placement INDICATIONS: post picc TECHNIQUE: One view of the chest was acquired. COMPARISON: There is a left Port-A-Cath, the tip of which is projected over the upper SVC. FINDINGS: Surgical changes and devices: None. Lungs and pleura: No pleural effusions or pneumothorax. Lungs are clear. Mediastinum: Mediastinal contours appear normal. Heart size is normal. Bones and chest wall: No suspicious bony lesions. Overlying soft tissues appear unremarkable. IMPRESSION: No acute cardiopulmonary process. Reviewed by: Tricia Livingston MD on 11/26/2023 10:09 AM [facility] Approved by: Tricia Livingston MD on 11/26/2023 10:09 AM [facility] Station ID: [id number]
--- NOTE | 2023-11-26 10:12 | ANESTHESIA PROCEDURE NOTE ---
Anesth Central Line Template - Central Line Central Line Preparation: Consent Obtained Central line location: Right Brachial Central line type: PICC Single Lumen Central line catheter tip site resides: Superior vena cava (SVC) Central line aftercare: Secured, Placement confirmed, No pneumothorax, No complications, Bundle checklist complete, Pt tolerated well
--- NOTE | 2023-11-26 10:15 | CONSULTATION NOTE ---
Consultation Report: consulted for PICC line placement. Informed consent obtained and all questions answered. RUE PICC line placed with US guidance. Sterile technique maintained. Line trimmed to 40 cm, threaded easily, 0 exposed. Sterile dressing applied. Placement confirmed with portable CXR. pt tolerated well. NAC
== END 2023-11-26 08:10 | disposition home or self-care (01) ==
LOC: SDS 08:09
PROVIDERS: ATTEND Nurse Anesthetist, Certified Registered
DX: E86.0 Dehydration (principal)
CPT/HCPCS: 36569; C1751

== ENCOUNTER 2023-11-28 08:00 | Outpatient (CLI) | payer MEDICARE, MEDICAID ==
[2023-11-28 17:07] LABS: BASOPHILS % (AUTO) 0.6 %; EOSINOPHILS % (AUTO) 0.6 %; HCT - HEMATOCRIT 29.2 % (37.0-47.0); HGB - HEMOGLOBIN 9.5 g/dL (12.0-16.0); LYMPHOCYTES # (AUTO) 1.1 10^3/uL (1.5-3.5); LYMPHOCYTES % (AUTO) 22.2 %; MEAN CORPUSCULAR HEMOGLOBIN 30.5 pg (27.0-31.0); MEAN CORPUSCULAR HGB CONC 32.5 g/dL (32.0-36.0); MEAN CORPUSCULAR VOLUME 93.9 fL (81.0-99.0); MEAN PLATELET VOLUME 9.1 fL (7.9-10.8); MONOCYTES % (AUTO) 0.4 %; NEUTROPHILS # (AUTO) 3.9 10^3/uL (1.5-6.6); PLT - PLATELET COUNT 285 10^3/uL (130-450); RED BLOOD COUNT 3.11 10^6/uL (4.20-5.40); RED CELL DISTRIBUTION WIDTH 13.5 % (12.0-15.0); WHITE BLOOD COUNT 5.1 x10^3/uL (4.8-10.8)
[2023-11-28 17:21] LABS: ALBUMIN 3.4 g/dL (3.2-5.5); ALBUMIN/GLOBULIN RATIO 1.3 (1.0-2.2); BILIRUBIN,TOTAL 0.3 mg/dL (0.2-1.0); CALCIUM 8.6 mg/dL (8.5-10.3); CREATININE 1.9 mg/dL (0.6-1.3); MAGNESIUM 1.5 mg/dL (1.7-2.3); POTASSIUM 4.2 mmol/L (3.5-4.5); TOTAL PROTEIN 6.1 g/dL (6.4-8.9)
== END 2023-11-28 23:59 | disposition home or self-care (01) ==
LOC: LAB.R 08:00
PROVIDERS: ATTEND Registered Nurse
DX: I10 Essential (primary) hypertension (principal); I48.20 Chronic atrial fibrillation, unspecified; E61.2 Magnesium deficiency
CPT/HCPCS: 80053; 83735; 85025

== ENCOUNTER 2023-12-01 11:46 | Outpatient (CLI) | payer MEDICARE, MEDICAID ==
[2023-12-01 11:57] LABS: BASOPHILS % (AUTO) 1.2 %; EOSINOPHILS % (AUTO) 0.6 %; HCT - HEMATOCRIT 27.2 % (37.0-47.0); HGB - HEMOGLOBIN 8.9 g/dL (12.0-16.0); LYMPHOCYTES # (AUTO) 0.9 10^3/uL (1.5-3.5); LYMPHOCYTES % (AUTO) 25.1 %; MEAN CORPUSCULAR HEMOGLOBIN 31.1 pg (27.0-31.0); MEAN CORPUSCULAR HGB CONC 32.7 g/dL (32.0-36.0); MEAN CORPUSCULAR VOLUME 95.1 fL (81.0-99.0); MEAN PLATELET VOLUME 9.5 fL (7.9-10.8); MONOCYTES % (AUTO) 1.2 %; NEUTROPHILS # (AUTO) 2.4 10^3/uL (1.5-6.6); NEUTROPHILS % (AUTO) 71.3 %; PLT - PLATELET COUNT 192 10^3/uL (130-450); RED BLOOD COUNT 2.86 10^6/uL (4.20-5.40); RED CELL DISTRIBUTION WIDTH 13.2 % (12.0-15.0); WHITE BLOOD COUNT 3.4 x10^3/uL (4.8-10.8)
[2023-12-01 12:11] LABS: ALBUMIN 3.4 g/dL (3.2-5.5); BILIRUBIN,TOTAL 0.2 mg/dL (0.2-1.0); CALCIUM 8.5 mg/dL (8.5-10.3); POTASSIUM 3.6 mmol/L (3.5-4.5)
[2023-12-01 12:17] LABS: ALBUMIN/GLOBULIN RATIO 1.3 (1.0-2.2); CREATININE 1.9 mg/dL (0.6-1.3)
== END 2023-12-01 11:47 | disposition home or self-care (01) ==
LOC: LAB.R 11:46
PROVIDERS: ATTEND Registered Nurse
DX: I10 Essential (primary) hypertension (principal); I48.20 Chronic atrial fibrillation, unspecified
CPT/HCPCS: 80053; 85025

== ENCOUNTER 2023-12-19 08:00 | Outpatient (CLI) | payer MEDICARE, MEDICAID ==
[2023-12-19 13:15] LABS: BASOPHILS % (AUTO) 0.7 %; EOSINOPHILS % (AUTO) 0.7 %; HCT - HEMATOCRIT 25.4 % (37.0-47.0); HGB - HEMOGLOBIN 8.1 g/dL (12.0-16.0); LYMPHOCYTES # (AUTO) 1.2 10^3/uL (1.5-3.5); MEAN CORPUSCULAR HEMOGLOBIN 31.3 pg (27.0-31.0); MEAN CORPUSCULAR HGB CONC 31.9 g/dL (32.0-36.0); MEAN CORPUSCULAR VOLUME 98.1 fL (81.0-99.0); MONOCYTES # (AUTO) 0.1 10^3/uL (0.0-1.0); MONOCYTES % (AUTO) 1.2 %; NEUTROPHILS % (AUTO) 69.2 %; PLT - PLATELET COUNT 318 10^3/uL (130-450); RED BLOOD COUNT 2.59 10^6/uL (4.20-5.40); RED CELL DISTRIBUTION WIDTH 14.5 % (12.0-15.0); WHITE BLOOD COUNT 4.3 x10^3/uL (4.8-10.8)
[2023-12-19 13:33] LABS: ALBUMIN 3.3 g/dL (3.2-5.5); ALBUMIN/GLOBULIN RATIO 1.3 (1.0-2.2); BILIRUBIN,TOTAL 0.3 mg/dL (0.2-1.0); CALCIUM 8.9 mg/dL (8.5-10.3); CREATININE 2.1 mg/dL (0.6-1.3); MAGNESIUM 1.5 mg/dL (1.7-2.3); POTASSIUM 5.4 mmol/L (3.5-4.5); TOTAL PROTEIN 5.9 g/dL (6.4-8.9)
== END 2023-12-19 23:59 | disposition home or self-care (01) ==
LOC: LAB.R 08:00
PROVIDERS: ATTEND Registered Nurse
DX: I10 Essential (primary) hypertension (principal); I48.20 Chronic atrial fibrillation, unspecified; E83.40 Disorders of magnesium metabolism, unspecified
CPT/HCPCS: 80053; 83735; 85025

== ENCOUNTER 2023-12-26 08:00 | Outpatient (CLI) | payer MEDICARE, MEDICAID ==
[2023-12-26 14:55] LABS: BASOPHILS % (AUTO) 1.8 %; EOSINOPHILS % (AUTO) 0.6 %; HCT - HEMATOCRIT 23.3 % (37.0-47.0); HGB - HEMOGLOBIN 7.2 g/dL (12.0-16.0); LYMPHOCYTES % (AUTO) 47.3 %; MEAN CORPUSCULAR HEMOGLOBIN 30.6 pg (27.0-31.0); MEAN CORPUSCULAR HGB CONC 30.9 g/dL (32.0-36.0); MEAN CORPUSCULAR VOLUME 99.1 fL (81.0-99.0); MEAN PLATELET VOLUME 9.9 fL (7.9-10.8); MONOCYTES % (AUTO) 16.6 %; NEUTROPHILS % (AUTO) 33.1 %; PLT - PLATELET COUNT 149 10^3/uL (130-450); RED BLOOD COUNT 2.35 10^6/uL (4.20-5.40); RED CELL DISTRIBUTION WIDTH 13.6 % (12.0-15.0)
[2023-12-26 15:04] LABS: ALBUMIN 3.8 g/dL (3.2-5.5); ALBUMIN/GLOBULIN RATIO 1.3 (1.0-2.2); BILIRUBIN,TOTAL 0.3 mg/dL (0.2-1.0); CALCIUM 9.5 mg/dL (8.5-10.3); CREATININE 2.4 mg/dL (0.6-1.3); MAGNESIUM 1.6 mg/dL (1.7-2.3); POTASSIUM 4.8 mmol/L (3.5-4.5); TOTAL PROTEIN 6.7 g/dL (6.4-8.9)
[2023-12-26 15:10] LABS: WHITE BLOOD COUNT 1.7 x10^3/uL (4.8-10.8)
[2023-12-26 15:12] LABS: ABNORMAL LYMPHS % (MANUAL) 0 %; BAND NEUTROPHILS % (MANUAL) 0 %
[2023-12-26 15:46] LABS: BASOPHILS # (MANUAL) 0.1 10^3/uL (0-0.1); BASOPHILS % (MANUAL) 3 %; LYMPHOCYTES % (MANUAL) 56 %; MONOCYTES # (MANUAL) 0.2 10^3/uL (0.0-1.0); NEUTROPHILS # (MANUAL) 0.5 10^3/uL (1.5-6.6); PLATELET MORPHOLOGY NORMAL APPEARANCE (NORMAL); RBC MORPHOLOGY (MULTIPLE) NORMAL APPEARANCE (NORMAL)
[2023-12-26 15:47] LABS: DIFFERENTIAL COMMENT MANUAL DIFFERENTIAL; PLATELET ESTIMATE, MANUAL NORMAL (130-450,000) (NORMAL)
== END 2023-12-26 23:59 | disposition home or self-care (01) ==
LOC: LAB.R 08:00
DX: I10 Essential (primary) hypertension (principal); I48.20 Chronic atrial fibrillation, unspecified; E61.2 Magnesium deficiency
CPT/HCPCS: 80053; 83735; 85025

== ENCOUNTER 2023-12-31 12:45 | Outpatient (CLI) | payer MEDICARE, MEDICAID ==
[2023-12-31 12:53] LABS: BASOPHILS % (AUTO) 0.6 %; EOSINOPHILS % (AUTO) 0.6 %; HCT - HEMATOCRIT 20.6 % (37.0-47.0); LYMPHOCYTES # (AUTO) 1.2 10^3/uL (1.5-3.5); LYMPHOCYTES % (AUTO) 35.6 %; MEAN CORPUSCULAR HEMOGLOBIN 31.7 pg (27.0-31.0); MEAN PLATELET VOLUME 9.4 fL (7.9-10.8); MONOCYTES # (AUTO) 0.7 10^3/uL (0.0-1.0); MONOCYTES % (AUTO) 20.1 %; NEUTROPHILS # (AUTO) 1.4 10^3/uL (1.5-6.6); NEUTROPHILS % (AUTO) 41.9 %; PLT - PLATELET COUNT 168 10^3/uL (130-450); RED BLOOD COUNT 2.08 10^6/uL (4.20-5.40); RED CELL DISTRIBUTION WIDTH 14.6 % (12.0-15.0); WHITE BLOOD COUNT 3.3 x10^3/uL (4.8-10.8)
[2023-12-31 12:56] LABS: HGB - HEMOGLOBIN 6.6 g/dL (12.0-16.0)
[2023-12-31 13:03] LABS: BILIRUBIN,URINE NEGATIVE (NEGATIVE); GLUCOSE, URINE (UA) NEGATIVE (NEGATIVE); KETONES,URINE (UA) NEGATIVE (NEGATIVE); LEUKOCYTE ESTERASE, URINE NEGATIVE (NEGATIVE); NITRITE,URINE NEGATIVE (NEGATIVE); OCCULT BLOOD,URINE LARGE (NEGATIVE); PROTEIN,URINE >=300 mg/dL (NEGATIVE); UROBILINOGEN,URINE 0.2 (NORMAL) E.U./dL (NORMAL)
[2023-12-31 13:04] LABS: CLARITY,URINE HAZY (CLEAR)
[2023-12-31 13:07] LABS: ALBUMIN 3.4 g/dL (3.2-5.5); ALBUMIN/GLOBULIN RATIO 1.1 (1.0-2.2); BILIRUBIN,TOTAL 0.2 mg/dL (0.2-1.0); CALCIUM 9.4 mg/dL (8.5-10.3); CREATININE 2.3 mg/dL (0.6-1.3); POTASSIUM 4.3 mmol/L (3.5-4.5); TOTAL PROTEIN 6.4 g/dL (6.4-8.9)
[2023-12-31 13:14] LABS: BACTERIA,URINE Few /HPF (None Seen); RBC,URINE TNTC /HPF (0-5); SQUAMOUS EPITHELIAL CELL,UR FEW Squamous (<= Few)
== END 2023-12-31 12:46 | disposition home or self-care (01) ==
LOC: LAB.R 12:45
PROVIDERS: ATTEND Registered Nurse
DX: I10 Essential (primary) hypertension (principal); I48.20 Chronic atrial fibrillation, unspecified; N39.0 Urinary tract infection, site not specified
CPT/HCPCS: 80053; 81001; 81003; 85025

== ENCOUNTER 2023-12-31 13:22 | Outpatient (CLI) | payer MEDICARE, MEDICAID | END 2023-12-31 23:59 | disposition critical access hospital (66) | LOC: EMS 13:22 | DX: R53.81 Other malaise (principal); R79.89 Other specified abnormal findings of blood chemistry; R53.83 Other fatigue; Z79.899 Other long term (current) drug therapy; R30.9 Painful micturition, unspecified; Z95.828 Presence of other vascular implants and grafts | CPT/HCPCS: A0425; A0429 ==

== ENCOUNTER 2023-12-31 13:29 | Emergency (ER) | payer MEDICARE, MEDICAID ==
--- NOTE | 2023-12-31 14:01 | ED Physician Documentation ---
PD HPI DYSPNEA - Stated complaint Stated Complaint: ABNORMAL LABS - History obtained from History obtained from: Patient - History of Present Illness Timing - onset: Yesterday (she is getting chemotherapy 3 days weekly, for 3 weeks of each month, for past several months. Had blood count done yesterday showing Hgb 6.6. Has been in range 7.2-10.6 over the recent past. Referred to ER by Oncology for transfusion.) Timing - details: Gradual onset Improved by: Rest Worsened by: Exertion Associated symptoms: No: Fever, Cough, Wheezing, Bilateral edema Similar symptoms before: Diagnosis (has had anemia but not below 7 until ysterday blood count. MPrior a week ago was 7.2 and before that 8.) Recently seen: Clinic (for chemotherapy. 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 : None HEENT: None Psych: Depression, Anxiety, ADD/ADHD Musculoskeletal: Osteoarthritis Derm: None - Past Surgical History Past Surgical History: Yes General: Cholecystectomy Ortho: Knee replacement /AIR AND HYDRONIC BALANCING TECHNICIAN: Mastectomy, Other HEENT: Cataracts - Present Medications Home Medications: Ambulatory Orders Medication Instructions Recorded Confirmed Acetaminophen [Tylenol] 650 mg PO Q4HR PRN tab 07/20/23 12/31/23 Buspirone HCl 15 mg PO BID #0 07/20/23 12/31/23 PARoxetine [Paxil] 40 mg PO HS #0 07/20/23 12/31/23 buPROPion HCL [Bupropion HCl Sr] 150 mg PO BID #0 07/20/23 12/31/23 dilTIAZem HCL [Diltiazem 24Hr ER 120 mg PO DAILY #0 07/20/23 12/31/23 (LA)] Apixaban [Eliquis] 2.5 mg PO BID 12/31/23 12/31/23 Ferrous Sulfate 325 mg PO DAILY 12/31/23 12/31/23 Lisinopril [Zestril] 10 mg PO DAILY 12/31/23 12/31/23 Mirtazapine 7.5 mg PO DAILY 12/31/23 12/31/23 Potassium Chloride [K-Dur] 20 meq PO DAILY 12/31/23 12/31/23 Prochlorperazine [Compazine] 10 mg PO Q6H PRN 12/31/23 12/31/23 - Allergies Allergies/Adverse Reactions: Allergies Allergy/AdvReac Type Severity Reaction Status Date / Time Sulfa (Sulfonamide Allergy Unknown Verified 05/31/23 18:03 Antibiotics) meloxicam AdvReac Unknown Verified 05/31/23 18:03 - Social History Does the pt smoke?: Yes Smoking Status: Current every day smoker Does the pt drink ETOH?: No Does the pt have substance abuse?: No - Immunizations Immunizations are current?: Yes - POLST Patient has POLST: No PD ED PE NORMAL - Vitals Vital signs reviewed: Yes - General General: Alert and oriented X 3, No acute distress, Well developed/nourished - Cardiac Cardiac: RRR, No murmur - Respiratory Respiratory: No respiratory distress, Clear bilaterally - Abdomen Abdomen: Soft, Non tender - Rectal Rectal: Deferred - Derm Derm: Normal color, Warm and dry - Extremities Extremities: No edema, No calf tenderness / cord - Neuro Neuro: Alert and oriented X 3, No motor deficit, Normal speech Results - Vitals Vitals: Oxygen O2 Source Room air - Labs Labs: Laboratory Tests 12/31/23 12/31/23 13:00 15:15 Blood Type O POSITIVE Blood Type Recheck O POSITIVE Antibody Screen NEGATIVE Crossmatch IS Only See Detail PD Medical Decision Making - ED course Complexity details: reviewed old records (prior trend of blood counts. ), reviewed results, considered differential (she gets chemotherapy 3 days per week, 3 weeks of each month. Has been anemic. No GI losses noted. No nosebleeds. Has not had prior transfusions but has been anemic in 7.2-10 range. ), d/w patient Departure - Departure Disposition: 01 Home, Self Care Clinical Impression: Status post chemotherapy, Generalized weakness Anemia Qualifiers: Anemia type: unspecified type Qualified Code(s): D64.9 - Anemia, unspecified Condition: Stable Record reviewed to determine appropriate education?: Yes Comments: Continue with your usual medications as well as chemotherapy. Follow-up with your primary care and oncologist regarding repeat blood testing etc. Your blood count had gotten low enough to precipitate the idea of giving a unit of blood transfusion. He did get 1 unit of packed red cells tonight.This should help with your general weakness a little bit but we only bring your blood count up to a certain level and you will still be anemic. I presume you are oncologist would want you to be taking a iron supplement. Discuss that with them. Return as needed. Forms: PCP List Discharge Date/Time: 12/31/23 19:43
[2023-12-31] MEDS: FLUCONAZOLE 100 MG TABLET PO STA (15:28)
[2023-12-31] MEDS: LIDOCAINE JELLY 2% 6 ML JEL.PF.APP TOP STA (15:28)
[2023-12-31] MEDS: LIDOCAINE-EPINEPH-TETRACAINE 3 ML SYRINGE TOP STA (18:36)
--- NOTE | 2023-12-31 18:46 | ED Physician Documentation ---
ED Addendum - Addendum Addendum: 12/31/23 18:[address] Moffett at shift change pending completion of transfusion of 1 unit of packed red cells. Given that she was less than 1 point below the transfusion threshold and this is a chronic recurrent problem I do not see the need for repeat H&H after the transfusion but she will need continued following of her labs at the SNF. Disposition: Discharged home Condition: Stable
[2023-12-31 19:42] VITALS: BP 126/77; O2SAT 100
== END 2023-12-31 19:43 | disposition home or self-care (01) ==
LOC: EDUNIT# → ED 13:29
DX: D49.9 Neoplasm of unspecified behavior of unspecified site (principal); D63.0 Anemia in neoplastic disease; T45.1X5A Adverse effect of antineoplastic and immunosuppressive drugs, initial encounter; I10 Essential (primary) hypertension; I48.20 Chronic atrial fibrillation, unspecified; N39.0 Urinary tract infection, site not specified; Z79.01 Long term (current) use of anticoagulants; F17.200 Nicotine dependence, unspecified, uncomplicated
CPT/HCPCS: 36430; 80053; 81001; 85025; 86850; 86900; 86901; 86920; 99283; 99285; A9270; P9016; 81003

== ENCOUNTER 2024-01-03 08:00 | Outpatient (CLI) | payer OTHER ==
[2024-01-03 15:40] LABS: BASOPHILS % (AUTO) 0.2 %; EOSINOPHILS % (AUTO) 0.8 %; HCT - HEMATOCRIT 23.8 % (37.0-47.0); HGB - HEMOGLOBIN 7.7 g/dL (12.0-16.0); LYMPHOCYTES # (AUTO) 1.5 10^3/uL (1.5-3.5); LYMPHOCYTES % (AUTO) 30.4 %; MEAN CORPUSCULAR HEMOGLOBIN 31.7 pg (27.0-31.0); MEAN CORPUSCULAR HGB CONC 32.4 g/dL (32.0-36.0); MEAN CORPUSCULAR VOLUME 97.9 fL (81.0-99.0); MEAN PLATELET VOLUME 8.9 fL (7.9-10.8); MONOCYTES # (AUTO) 0.6 10^3/uL (0.0-1.0); MONOCYTES % (AUTO) 12.1 %; NEUTROPHILS # (AUTO) 2.7 10^3/uL (1.5-6.6); NEUTROPHILS % (AUTO) 54.4 %; PLT - PLATELET COUNT 246 10^3/uL (130-450); RED BLOOD COUNT 2.43 10^6/uL (4.20-5.40); RED CELL DISTRIBUTION WIDTH 15.8 % (12.0-15.0); WHITE BLOOD COUNT 4.9 x10^3/uL (4.8-10.8)
[2024-01-03 15:52] LABS: ALBUMIN 3.3 g/dL (3.2-5.5); ALBUMIN/GLOBULIN RATIO 1.2 (1.0-2.2); BILIRUBIN,TOTAL 0.2 mg/dL (0.2-1.0); CALCIUM 9.3 mg/dL (8.5-10.3); CREATININE 2.3 mg/dL (0.6-1.3); MAGNESIUM 1.8 mg/dL (1.7-2.3); POTASSIUM 5.2 mmol/L (3.5-4.5); TOTAL PROTEIN 6.1 g/dL (6.4-8.9)
== END 2024-01-03 23:52 | disposition home or self-care (01) ==
LOC: LAB.R 08:00
PROVIDERS: ATTEND Registered Nurse
DX: I10 Essential (primary) hypertension (principal); I48.20 Chronic atrial fibrillation, unspecified; E61.2 Magnesium deficiency
CPT/HCPCS: 80053; 83735; 85025

== ENCOUNTER 2024-01-10 08:00 | Outpatient (CLI) | payer MEDICARE, MEDICAID ==
[2024-01-10 15:35] LABS: BASOPHILS % (AUTO) 0.9 %; EOSINOPHILS % (AUTO) 0.4 %; HCT - HEMATOCRIT 20.6 % (37.0-47.0); LYMPHOCYTES % (AUTO) 25.8 %; MEAN CORPUSCULAR HGB CONC 31.6 g/dL (32.0-36.0); MEAN CORPUSCULAR VOLUME 98.1 fL (81.0-99.0); MEAN PLATELET VOLUME 9.2 fL (7.9-10.8); MONOCYTES % (AUTO) 0.7 %; NEUTROPHILS % (AUTO) 71.8 %; PLT - PLATELET COUNT 344 10^3/uL (130-450); RED CELL DISTRIBUTION WIDTH 15.4 % (12.0-15.0); WHITE BLOOD COUNT 4.6 x10^3/uL (4.8-10.8)
[2024-01-10 15:43] LABS: ALBUMIN 3.2 g/dL (3.2-5.5); ALBUMIN/GLOBULIN RATIO 1.1 (1.0-2.2); BILIRUBIN,TOTAL 0.3 mg/dL (0.2-1.0); CALCIUM 8.9 mg/dL (8.5-10.3); MAGNESIUM 1.5 mg/dL (1.7-2.3); POTASSIUM 4.4 mmol/L (3.5-4.5); TOTAL PROTEIN 6.1 g/dL (6.4-8.9)
[2024-01-10 15:48] LABS: HGB - HEMOGLOBIN 6.5 g/dL (12.0-16.0)
[2024-01-10 15:49] LABS: ABNORMAL LYMPHS % (MANUAL) 0 %; BAND NEUTROPHILS % (MANUAL) 0 %
[2024-01-10 16:24] LABS: LYMPHOCYTES # (MANUAL) 1.8 10^3/uL (1.5-3.5); LYMPHOCYTES % (MANUAL) 40 %; NEUTROPHILS # (MANUAL) 2.7 10^3/uL (1.5-6.6); PLATELET ESTIMATE, MANUAL NORMAL (130-450,000) (NORMAL); PLATELET MORPHOLOGY NORMAL APPEARANCE (NORMAL); RBC MORPHOLOGY (MULTIPLE) NORMAL APPEARANCE (NORMAL)
[2024-01-10 16:25] LABS: DIFFERENTIAL COMMENT MANUAL DIFFERENTIAL
== END 2024-01-10 23:59 | disposition home or self-care (01) ==
LOC: LAB.R 08:00
PROVIDERS: ATTEND Registered Nurse
DX: C34.90 Malignant neoplasm of unspecified part of unspecified bronchus or lung (principal); J44.9 Chronic obstructive pulmonary disease, unspecified; I48.20 Chronic atrial fibrillation, unspecified
CPT/HCPCS: 80053; 83735; 85025

== ENCOUNTER 2024-01-10 18:15 | Outpatient (CLI) | payer MEDICARE, MEDICAID | END 2024-01-10 18:16 | disposition critical access hospital (66) | LOC: EMS 18:15 | DX: R79.89 Other specified abnormal findings of blood chemistry (principal); R53.81 Other malaise | CPT/HCPCS: A0425; A0429 ==

== ENCOUNTER 2024-01-10 18:22 | Emergency (ER) | payer MEDICARE, MEDICAID ==
--- NOTE | 2024-01-10 19:06 | ED Physician Documentation ---
History of Present Illness - Stated complaint Stated Complaint: ABNORMAL LABS - Chief complaint Chief Complaint: General - History obtained from History obtained from: Patient, EMS - History of Present Illness Timing: Today Pain level max: 0 Pain level now: 0 - Additonal information Additional information: Patient is a 68-year-old female who presents to the emergency department after an outpatient blood draw showed anemia. She has chronic anemia and has received blood transfusions in the past. She states she has some sort of abdominal cancer and is receiving chemotherapy. She lives at [facility]. She does not feel short of breath, lightheaded, chest pain. Reportedly her outpatient lab draw was around 6.5 hemoglobin. 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 : None HEENT: None Psych: Depression, Anxiety, ADD/ADHD Musculoskeletal: Osteoarthritis Derm: None - Past Surgical History Past Surgical History: Yes General: Cholecystectomy Ortho: Knee replacement /SENIOR PROPERTY ACCOUNTANT: Mastectomy, Other HEENT: Cataracts - Present Medications Home Medications: Ambulatory Orders Medication Instructions Recorded Confirmed Acetaminophen [Tylenol] 650 mg PO Q4HR PRN tab 07/20/23 01/10/24 Buspirone HCl 15 mg PO BID #0 07/20/23 01/10/24 PARoxetine [Paxil] 40 mg PO HS #0 07/20/23 01/10/24 buPROPion HCL [Bupropion HCl Sr] 150 mg PO BID #0 07/20/23 01/10/24 dilTIAZem HCL [Diltiazem 24Hr ER 120 mg PO DAILY #0 07/20/23 01/10/24 (LA)] Apixaban [Eliquis] 2.5 mg PO BID 12/31/23 01/10/24 Ferrous Sulfate 325 mg PO DAILY 12/31/23 01/10/24 Lisinopril [Zestril] 10 mg PO DAILY 12/31/23 01/10/24 Mirtazapine 7.5 mg PO DAILY 12/31/23 01/10/24 Potassium Chloride [K-Dur] 20 meq PO DAILY 12/31/23 01/10/24 Prochlorperazine [Compazine] 10 mg PO Q6H PRN 12/31/23 01/10/24 - Allergies Allergies/Adverse Reactions: Allergies Allergy/AdvReac Type Severity Reaction Status Date / Time Sulfa (Sulfonamide Allergy Unknown Verified 01/10/24 18:28 Antibiotics) meloxicam AdvReac Unknown Verified 01/10/24 18:28 - Social History Does the pt smoke?: Yes Smoking Status: Current every day smoker Does the pt drink ETOH?: No Does the pt have substance abuse?: No - Immunizations Immunizations are current?: Yes - POLST Patient has POLST: No PD ED PE NORMAL - Vitals Vital signs reviewed: Yes - General General: Alert and oriented X 3, No acute distress - HEENT HEENT: PERRL, Moist mucous membranes - Neck Neck: Supple, no meningeal sign - Cardiac Cardiac: RRR, Strong equal pulses - Respiratory Respiratory: No respiratory distress, Clear bilaterally - Abdomen Abdomen: Soft, Non tender, Non distended - Rectal Rectal: Pt declined - Derm Derm: Warm and dry - Neuro Neuro: Alert and oriented X 3 - Psych Psych: Normal mood, Normal affect Results - Vitals Vitals: Vital Signs - 24 hr 01/10/24 01/10/24 01/10/24 18:25 19:59 20:21 Temperature 36.2 C L 36 C L 36.4 C L Heart Rate 94 Heart Rate [ 87 88 Monitoring electrodes] Respiratory 20 18 18 Rate Blood Pressure 115/88 H Blood Pressure 112/83 H 188/88 H [Left Brachial artery] O2 Saturation 97 97 95 01/10/24 20:28 Temperature Heart Rate 93 Heart Rate [ Monitoring electrodes] Respiratory 17 Rate Blood Pressure 116/87 H Blood Pressure [Left Brachial artery] O2 Saturation 97 Oxygen O2 Source Room air - Labs Labs: Laboratory Tests 01/10/24 18:32 Blood Type O POSITIVE Antibody Screen NEGATIVE Crossmatch IS Only See Detail PD Medical Decision Making - ED course Complexity details: reviewed results, considered differential, d/w patient ED course: 68-year-old female with chronic anemia received 1 unit of PRBCs. This is an ongoing issue, do not feel she needs a repeat CBC at this time. Recommend that she follow-up with her doctor, they can schedule blood transfusions as needed at the [facility] clinic. Or she can receive it in [place] when she receives her chemotherapy. Recommend she discuss this with her oncologist. Patient is asymptomatic here. No shortness of breath, no chest pain. No lightheadedness or dizziness. Patient denies any dark or tarry stools. Likely that the anemia is related to her cancer. Patient counseled regarding signs and symptoms for which I believe and urgent re-evaluation would be necessary. Patient with good understanding of and agreement to plan and is comfortable going home at this time This document was made in part using voice recognition software. While efforts are made to proofread this document, sound alike and grammatical errors may occur. Departure - Departure Disposition: 01 Home, Self Care Clinical Impression: Anemia Qualifiers: Anemia type: unspecified type Qualified Code(s): D64.9 - Anemia, unspecified Condition: Good Instructions: ED Anemia Type Not Specified Follow-Up: your,doctor in 3 days [Other] Comments: You were given a unit of blood today. Future blood transfusions can be scheduled with the [facility] clinic or with [place]. They can be ordered by your oncologist or your primary care provider. Please return if you develop lightheadedness, dizziness, difficulty breathing or other new or worrisome symptoms. Forms: PCP List
[2024-01-10 22:54] VITALS: BP 128/93; O2SAT 98
== END 2024-01-10 23:00 | disposition home or self-care (01) ==
LOC: EDUNIT# → ED 18:22
DX: D64.9 Anemia, unspecified (principal); J44.9 Chronic obstructive pulmonary disease, unspecified; C34.90 Malignant neoplasm of unspecified part of unspecified bronchus or lung; I10 Essential (primary) hypertension; I48.91 Unspecified atrial fibrillation; F17.200 Nicotine dependence, unspecified, uncomplicated
CPT/HCPCS: 36430; 80053; 83735; 85025; 86850; 86900; 86901; 86920; 99284; 99285; P9016

== ENCOUNTER 2024-01-17 08:00 | Outpatient (CLI) | payer MEDICARE, MEDICAID ==
[2024-01-17 11:20] LABS: BASOPHILS % (AUTO) 0.8 %; EOSINOPHILS % (AUTO) 0.8 %; HCT - HEMATOCRIT 23.2 % (37.0-47.0); HGB - HEMOGLOBIN 7.7 g/dL (12.0-16.0); LYMPHOCYTES % (AUTO) 43.7 %; MEAN CORPUSCULAR HEMOGLOBIN 31.4 pg (27.0-31.0); MEAN CORPUSCULAR HGB CONC 33.2 g/dL (32.0-36.0); MEAN CORPUSCULAR VOLUME 94.7 fL (81.0-99.0); MEAN PLATELET VOLUME 10.5 fL (7.9-10.8); MONOCYTES % (AUTO) 21.4 %; NEUTROPHILS % (AUTO) 33.3 %; PLT - PLATELET COUNT 118 10^3/uL (130-450); RED BLOOD COUNT 2.45 10^6/uL (4.20-5.40); RED CELL DISTRIBUTION WIDTH 14.6 % (12.0-15.0)
[2024-01-17 11:31] LABS: ALBUMIN 3.6 g/dL (3.2-5.5); ALBUMIN/GLOBULIN RATIO 1.2 (1.0-2.2); BILIRUBIN,TOTAL 0.3 mg/dL (0.2-1.0); CALCIUM 9.1 mg/dL (8.5-10.3); CREATININE 2.4 mg/dL (0.6-1.3); TOTAL PROTEIN 6.7 g/dL (6.4-8.9)
[2024-01-17 11:35] LABS: WHITE BLOOD COUNT 1.3 x10^3/uL (4.8-10.8)
[2024-01-17 11:36] LABS: ABNORMAL LYMPHS % (MANUAL) 0 %
[2024-01-17 11:44] LABS: BAND NEUTROPHILS % (MANUAL) 8 %; LYMPHOCYTES # (MANUAL) 0.6 10^3/uL (1.5-3.5); LYMPHOCYTES % (MANUAL) 47 %; MONOCYTES # (MANUAL) 0.2 10^3/uL (0.0-1.0)
[2024-01-17 11:45] LABS: DIFFERENTIAL COMMENT MANUAL DIFFERENTIAL; METAMYELOCYTES % (MANUAL) 1 %; NEUTROPHILS # (MANUAL) 0.4 10^3/uL (1.5-6.6); PLATELET ESTIMATE, MANUAL DECREASED (<130,000) (NORMAL); PLATELET MORPHOLOGY NORMAL APPEARANCE (NORMAL); RBC MORPHOLOGY (MULTIPLE) NORMAL APPEARANCE (NORMAL); WBC MORPHOLOGY (MULTIPLE) NORMAL APPEARANCE (NORMAL)
== END 2024-01-17 23:59 | disposition home or self-care (01) ==
LOC: LAB.R 08:00
PROVIDERS: ATTEND Registered Nurse
DX: E87.6 Hypokalemia (principal); I48.20 Chronic atrial fibrillation, unspecified
CPT/HCPCS: 80053; 85025

== ENCOUNTER 2024-01-17 12:05 | Emergency (ER) | payer MEDICARE, MEDICAID ==
--- NOTE | 2024-01-17 12:24 | ED Physician Documentation ---
History of Present Illness - Stated complaint Stated Complaint: WBC DOWN - Chief complaint Chief Complaint: General - History obtained from History obtained from: Patient, EMS - History of Present Illness Timing: Today Pain level max: 0 Pain level now: 0 - Additonal information Additional information: 68-year-old female, history of lung cancer, being treated at [facility] presents for neutropenia. No fevers. No reported fevers. Patient is asymptomatic. Patient has no complaints. EMS states there were no other concerns from the senior care. 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: None : None HEENT: None Psych: Depression, Anxiety, ADD/ADHD Musculoskeletal: Osteoarthritis Derm: None - Past Surgical History Past Surgical History: Yes General: Cholecystectomy Ortho: Knee replacement /PHYSICAL MEDICINE TEACHER: Mastectomy, Other HEENT: Cataracts - Present Medications Home Medications: Ambulatory Orders Medication Instructions Recorded Confirmed Acetaminophen [Tylenol] 650 mg PO Q4HR PRN tab 07/20/23 01/10/24 Buspirone HCl 15 mg PO BID #0 07/20/23 01/10/24 PARoxetine [Paxil] 40 mg PO HS #0 07/20/23 01/10/24 buPROPion HCL [Bupropion HCl Sr] 150 mg PO BID #0 07/20/23 01/10/24 dilTIAZem HCL [Diltiazem 24Hr ER 120 mg PO DAILY #0 07/20/23 01/10/24 (LA)] Apixaban [Eliquis] 2.5 mg PO BID 12/31/23 01/10/24 Ferrous Sulfate 325 mg PO DAILY 12/31/23 01/10/24 Lisinopril [Zestril] 10 mg PO DAILY 12/31/23 01/10/24 Mirtazapine 7.5 mg PO DAILY 12/31/23 01/10/24 Potassium Chloride [K-Dur] 20 meq PO DAILY 12/31/23 01/10/24 Prochlorperazine [Compazine] 10 mg PO Q6H PRN 12/31/23 01/10/24 - Allergies Allergies/Adverse Reactions: Allergies Allergy/AdvReac Type Severity Reaction Status Date / Time Sulfa (Sulfonamide Allergy Itching Verified 01/17/24 12:27 Antibiotics) meloxicam AdvReac Unknown Verified 01/17/24 12:27 - Social History Does the pt smoke?: Yes Smoking Status: Current every day smoker Does the pt drink ETOH?: No Does the pt have substance abuse?: No - Immunizations Immunizations are current?: Yes - POLST Patient has POLST: No PD ED PE NORMAL - Vitals Vital signs reviewed: Yes - General General: Alert and oriented X 3, No acute distress - HEENT HEENT: Moist mucous membranes - Neck Neck: Supple, no meningeal sign - Cardiac Cardiac: RRR, Strong equal pulses - Respiratory Respiratory: No respiratory distress, Clear bilaterally - Derm Derm: Warm and dry - Neuro Neuro: Alert and oriented X 3 - Psych Psych: Normal mood, Normal affect Results - Vitals Vitals: Vital Signs - 24 hr 01/17/24 01/17/24 12:23 14:40 Temperature 36.8 C Heart Rate 87 83 Respiratory 18 18 Rate Blood Pressure 97/67 114/67 O2 Saturation 99 98 Oxygen O2 Source Room air PD Medical Decision Making - ED course Complexity details: reviewed old records, considered differential, d/w patient ED course: Patient with asymptomatic neutropenia. No fevers. No reports of fevers. I discussed the case with the nurse at the senior care who states that they did speak to the on-call provider who recommended she come here. Unclear why the patient was sent to the emergency department. Recommend that she receive G-CSF as an outpatient if her oncologist wishes to do so. Otherwise we just can continue the neutropenic fever precautions that she is already on. Neupogen is not available in the emergency department here. There is no emergency medical condition at this time. Patient counseled regarding signs and symptoms for which I believe and urgent re-evaluation would be necessary. Patient with good understanding of and agreement to plan and is comfortable going home at this time This document was made in part using voice recognition software. While efforts are made to proofread this document, sound alike and grammatical errors may occur. Departure - Departure Disposition: 01 Home, Self Care Clinical Impression: Neutropenia Qualifiers: Neutropenia type: unspecified Qualified Code(s): D70.9 - Neutropenia, unspecified Condition: Good Instructions: Neutropenia Follow-Up: your,doctor tomorrow [Other] Comments: Brigida needs to be on neutropenic precautions at the senior care. If her oncologist would like her to have a Neupogen shot, they can schedule this with the [facility], this cannot be given through the emergency department. She should return to the emergency department if she develops fevers. Please follow-up with her oncologist for further care. Forms: PCP List Discharge Date/Time: 01/17/24 14:40
[2024-01-17 14:46] VITALS: BP 114/67; O2SAT 98
== END 2024-01-17 14:40 | disposition home or self-care (01) ==
LOC: EDUNIT# → ED 12:05
DX: D70.9 Neutropenia, unspecified (principal); E87.6 Hypokalemia; I48.20 Chronic atrial fibrillation, unspecified; I10 Essential (primary) hypertension; Z79.01 Long term (current) use of anticoagulants; F17.200 Nicotine dependence, unspecified, uncomplicated
CPT/HCPCS: 80053; 85025; 99282; 99283

== ENCOUNTER 2024-01-17 12:18 | Outpatient (CLI) | payer MEDICARE, MEDICAID | END 2024-01-17 23:59 | disposition critical access hospital (66) | LOC: EMS 12:18 | DX: D72.819 Decreased white blood cell count, unspecified (principal) | CPT/HCPCS: A0425; A0429 ==

== ENCOUNTER 2024-01-28 08:00 | Outpatient (CLI) | payer MEDICARE, MEDICAID ==
[2024-01-28 18:21] LABS: CALCIUM 9.5 mg/dL (8.5-10.3); CREATININE 2.4 mg/dL (0.6-1.3); POTASSIUM 4.8 mmol/L (3.5-4.5)
== END 2024-01-28 23:59 | disposition home or self-care (01) ==
LOC: LAB.S 08:00
DX: I10 Essential (primary) hypertension (principal)
CPT/HCPCS: 36415; 80048

== ENCOUNTER 2024-02-05 08:00 | Outpatient (CLI) | payer MEDICARE, MEDICAID ==
[2024-02-05 16:10] LABS: BASOPHILS # (AUTO) 0.1 10^3/uL (0.0-0.1); BASOPHILS % (AUTO) 1.3 %; HCT - HEMATOCRIT 27.4 % (37.0-47.0); HGB - HEMOGLOBIN 8.6 g/dL (12.0-16.0); LYMPHOCYTES # (AUTO) 1.2 10^3/uL (1.5-3.5); LYMPHOCYTES % (AUTO) 30.7 %; MEAN CORPUSCULAR HEMOGLOBIN 31.7 pg (27.0-31.0); MEAN CORPUSCULAR HGB CONC 31.4 g/dL (32.0-36.0); MEAN CORPUSCULAR VOLUME 101.1 fL (81.0-99.0); MEAN PLATELET VOLUME 9.5 fL (7.9-10.8); MONOCYTES # (AUTO) 0.3 10^3/uL (0.0-1.0); MONOCYTES % (AUTO) 7.8 %; NEUTROPHILS # (AUTO) 2.3 10^3/uL (1.5-6.6); NEUTROPHILS % (AUTO) 58.9 %; PLT - PLATELET COUNT 324 10^3/uL (130-450); RED BLOOD COUNT 2.71 10^6/uL (4.20-5.40); RED CELL DISTRIBUTION WIDTH 17.2 % (12.0-15.0); WHITE BLOOD COUNT 3.8 x10^3/uL (4.8-10.8)
[2024-02-05 16:27] LABS: ALBUMIN 3.6 g/dL (3.2-5.5); ALBUMIN/GLOBULIN RATIO 1.2 (1.0-2.2); BILIRUBIN,TOTAL 0.3 mg/dL (0.2-1.0); CALCIUM 9.3 mg/dL (8.5-10.3); CREATININE 2.3 mg/dL (0.6-1.3); MAGNESIUM 1.8 mg/dL (1.7-2.3); POTASSIUM 4.2 mmol/L (3.5-4.5); TOTAL PROTEIN 6.5 g/dL (6.4-8.9)
== END 2024-02-05 23:59 | disposition home or self-care (01) ==
LOC: LAB.R 08:00
DX: C34.90 Malignant neoplasm of unspecified part of unspecified bronchus or lung (principal); E43 Unspecified severe protein-calorie malnutrition; M62.81 Muscle weakness (generalized)
CPT/HCPCS: 80053; 83735; 85025

== ENCOUNTER 2024-02-15 07:47 | Outpatient (CLI) | payer MEDICARE, MEDICAID ==
[2024-02-15 07:55] LABS: BASOPHILS % (AUTO) 0.8 %; EOSINOPHILS # (AUTO) 0.1 10^3/uL (0.0-0.7); EOSINOPHILS % (AUTO) 3.4 %; HCT - HEMATOCRIT 24.9 % (37.0-47.0); LYMPHOCYTES # (AUTO) 1.4 10^3/uL (1.5-3.5); LYMPHOCYTES % (AUTO) 35.1 %; MEAN CORPUSCULAR HEMOGLOBIN 32.9 pg (27.0-31.0); MEAN CORPUSCULAR HGB CONC 32.1 g/dL (32.0-36.0); MEAN CORPUSCULAR VOLUME 102.5 fL (81.0-99.0); MEAN PLATELET VOLUME 9.6 fL (7.9-10.8); MONOCYTES # (AUTO) 0.4 10^3/uL (0.0-1.0); MONOCYTES % (AUTO) 9.1 %; NEUTROPHILS % (AUTO) 51.3 %; PLT - PLATELET COUNT 254 10^3/uL (130-450); RED BLOOD COUNT 2.43 10^6/uL (4.20-5.40); RED CELL DISTRIBUTION WIDTH 16.9 % (12.0-15.0); WHITE BLOOD COUNT 3.9 x10^3/uL (4.8-10.8)
[2024-02-15 08:18] LABS: ALBUMIN 3.5 g/dL (3.2-5.5); ALBUMIN/GLOBULIN RATIO 1.3 (1.0-2.2); BILIRUBIN,TOTAL 0.2 mg/dL (0.2-1.0); CALCIUM 9.5 mg/dL (8.5-10.3); CREATININE 2.3 mg/dL (0.6-1.3); MAGNESIUM 1.9 mg/dL (1.7-2.3); POTASSIUM 3.9 mmol/L (3.5-4.5); TOTAL PROTEIN 6.2 g/dL (6.4-8.9)
== END 2024-02-15 07:48 | disposition home or self-care (01) ==
LOC: LAB.R 07:47
PROVIDERS: ATTEND Registered Nurse
DX: I48.20 Chronic atrial fibrillation, unspecified (principal); J44.9 Chronic obstructive pulmonary disease, unspecified; E87.6 Hypokalemia
CPT/HCPCS: 80053; 83735; 85025

== ENCOUNTER 2024-03-06 08:00 | Outpatient (CLI) | payer MEDICARE, MEDICAID ==
[2024-03-06 11:27] LABS: EOSINOPHILS # (AUTO) 0.2 10^3/uL (0.0-0.7); EOSINOPHILS % (AUTO) 4.2 %; HCT - HEMATOCRIT 25.1 % (37.0-47.0); LYMPHOCYTES # (AUTO) 1.1 10^3/uL (1.5-3.5); LYMPHOCYTES % (AUTO) 28.4 %; MEAN CORPUSCULAR HEMOGLOBIN 33.5 pg (27.0-31.0); MEAN CORPUSCULAR HGB CONC 31.9 g/dL (32.0-36.0); MEAN PLATELET VOLUME 9.6 fL (7.9-10.8); MONOCYTES # (AUTO) 0.2 10^3/uL (0.0-1.0); MONOCYTES % (AUTO) 5.7 %; NEUTROPHILS # (AUTO) 2.3 10^3/uL (1.5-6.6); NEUTROPHILS % (AUTO) 60.4 %; PLT - PLATELET COUNT 206 10^3/uL (130-450); RED BLOOD COUNT 2.39 10^6/uL (4.20-5.40); RED CELL DISTRIBUTION WIDTH 14.5 % (12.0-15.0); WHITE BLOOD COUNT 3.8 x10^3/uL (4.8-10.8)
[2024-03-06 11:46] LABS: ALBUMIN 3.5 g/dL (3.2-5.5); ALBUMIN/GLOBULIN RATIO 1.3 (1.0-2.2); BILIRUBIN,TOTAL 0.2 mg/dL (0.2-1.0); CALCIUM 9.2 mg/dL (8.5-10.3); CREATININE 2.1 mg/dL (0.6-1.3); MAGNESIUM 1.6 mg/dL (1.7-2.3); POTASSIUM 4.5 mmol/L (3.5-4.5); TOTAL PROTEIN 6.1 g/dL (6.4-8.9)
== END 2024-03-06 23:59 | disposition home or self-care (01) ==
LOC: LAB.R 08:00
PROVIDERS: ATTEND Registered Nurse
DX: I10 Essential (primary) hypertension (principal); I48.20 Chronic atrial fibrillation, unspecified; E61.2 Magnesium deficiency
CPT/HCPCS: 80053; 83735; 85025

== ENCOUNTER 2024-03-13 08:00 | Outpatient (CLI) | payer MEDICARE, MEDICAID ==
[2024-03-13 13:17] LABS: BASOPHILS % (AUTO) 0.7 %; EOSINOPHILS # (AUTO) 0.1 10^3/uL (0.0-0.7); EOSINOPHILS % (AUTO) 3.3 %; HCT - HEMATOCRIT 23.9 % (37.0-47.0); HGB - HEMOGLOBIN 7.9 g/dL (12.0-16.0); LYMPHOCYTES # (AUTO) 1.3 10^3/uL (1.5-3.5); LYMPHOCYTES % (AUTO) 29.9 %; MEAN CORPUSCULAR HEMOGLOBIN 33.9 pg (27.0-31.0); MEAN CORPUSCULAR HGB CONC 33.1 g/dL (32.0-36.0); MEAN CORPUSCULAR VOLUME 102.6 fL (81.0-99.0); MONOCYTES # (AUTO) 0.4 10^3/uL (0.0-1.0); MONOCYTES % (AUTO) 8.4 %; NEUTROPHILS # (AUTO) 2.4 10^3/uL (1.5-6.6); NEUTROPHILS % (AUTO) 57.5 %; PLT - PLATELET COUNT 211 10^3/uL (130-450); RED BLOOD COUNT 2.33 10^6/uL (4.20-5.40); RED CELL DISTRIBUTION WIDTH 13.4 % (12.0-15.0); WHITE BLOOD COUNT 4.2 x10^3/uL (4.8-10.8)
[2024-03-13 13:35] LABS: ALBUMIN 3.7 g/dL (3.2-5.5); ALBUMIN/GLOBULIN RATIO 1.4 (1.0-2.2); BILIRUBIN,TOTAL 0.3 mg/dL (0.2-1.0); CALCIUM 9.2 mg/dL (8.5-10.3); CREATININE 2.4 mg/dL (0.6-1.3); POTASSIUM 4.3 mmol/L (3.5-4.5); TOTAL PROTEIN 6.4 g/dL (6.4-8.9)
== END 2024-03-13 23:59 | disposition home or self-care (01) ==
LOC: LAB 08:00
PROVIDERS: ATTEND Registered Nurse
DX: Z51.11 Encounter for antineoplastic chemotherapy (principal)
CPT/HCPCS: 36415; 80053; 85025

== ENCOUNTER 2024-03-20 08:00 | Outpatient (CLI) | payer MEDICARE, MEDICAID ==
[2024-03-20 12:29] LABS: BASOPHILS % (AUTO) 1.1 %; EOSINOPHILS # (AUTO) 0.1 10^3/uL (0.0-0.7); EOSINOPHILS % (AUTO) 3.6 %; HCT - HEMATOCRIT 24.8 % (37.0-47.0); LYMPHOCYTES # (AUTO) 0.9 10^3/uL (1.5-3.5); LYMPHOCYTES % (AUTO) 24.3 %; MEAN CORPUSCULAR HGB CONC 32.3 g/dL (32.0-36.0); MEAN CORPUSCULAR VOLUME 105.5 fL (81.0-99.0); MEAN PLATELET VOLUME 9.8 fL (7.9-10.8); MONOCYTES # (AUTO) 0.3 10^3/uL (0.0-1.0); MONOCYTES % (AUTO) 7.1 %; NEUTROPHILS # (AUTO) 2.3 10^3/uL (1.5-6.6); NEUTROPHILS % (AUTO) 63.6 %; PLT - PLATELET COUNT 228 10^3/uL (130-450); RED BLOOD COUNT 2.35 10^6/uL (4.20-5.40); RED CELL DISTRIBUTION WIDTH 12.5 % (12.0-15.0); WHITE BLOOD COUNT 3.7 x10^3/uL (4.8-10.8)
[2024-03-20 12:42] LABS: ALBUMIN 3.7 g/dL (3.2-5.5); ALBUMIN/GLOBULIN RATIO 1.4 (1.0-2.2); BILIRUBIN,TOTAL 0.2 mg/dL (0.2-1.0); CALCIUM 9.1 mg/dL (8.5-10.3); CREATININE 2.6 mg/dL (0.6-1.3); MAGNESIUM 1.8 mg/dL (1.7-2.3); POTASSIUM 4.6 mmol/L (3.5-4.5); TOTAL PROTEIN 6.4 g/dL (6.4-8.9)
== END 2024-03-20 23:59 | disposition home or self-care (01) ==
LOC: LAB.R 08:00
PROVIDERS: ATTEND Internal Medicine Cardiovascular Disease
DX: I10 Essential (primary) hypertension (principal); I48.20 Chronic atrial fibrillation, unspecified; E61.2 Magnesium deficiency
CPT/HCPCS: 36415; 80053; 83735; 85025

== ENCOUNTER 2024-03-27 08:00 | Outpatient (CLI) | payer MEDICARE, MEDICAID ==
[2024-03-27 15:22] LABS: BASOPHILS % (AUTO) 0.9 %; EOSINOPHILS # (AUTO) 0.1 10^3/uL (0.0-0.7); EOSINOPHILS % (AUTO) 2.4 %; HCT - HEMATOCRIT 25.9 % (37.0-47.0); HGB - HEMOGLOBIN 8.5 g/dL (12.0-16.0); LYMPHOCYTES # (AUTO) 0.9 10^3/uL (1.5-3.5); LYMPHOCYTES % (AUTO) 25.4 %; MEAN CORPUSCULAR HEMOGLOBIN 33.7 pg (27.0-31.0); MEAN CORPUSCULAR HGB CONC 32.8 g/dL (32.0-36.0); MEAN CORPUSCULAR VOLUME 102.8 fL (81.0-99.0); MEAN PLATELET VOLUME 9.8 fL (7.9-10.8); MONOCYTES # (AUTO) 0.4 10^3/uL (0.0-1.0); MONOCYTES % (AUTO) 11.7 %; NEUTROPHILS % (AUTO) 59.6 %; PLT - PLATELET COUNT 218 10^3/uL (130-450); RED BLOOD COUNT 2.52 10^6/uL (4.20-5.40); RED CELL DISTRIBUTION WIDTH 12.2 % (12.0-15.0); WHITE BLOOD COUNT 3.3 x10^3/uL (4.8-10.8)
[2024-03-27 15:41] LABS: ALBUMIN 3.8 g/dL (3.2-5.5); ALBUMIN/GLOBULIN RATIO 1.5 (1.0-2.2); BILIRUBIN,TOTAL 0.2 mg/dL (0.2-1.0); CALCIUM 9.3 mg/dL (8.5-10.3); CREATININE 2.8 mg/dL (0.6-1.3); MAGNESIUM 1.8 mg/dL (1.7-2.3); POTASSIUM 4.1 mmol/L (3.5-4.5); TOTAL PROTEIN 6.4 g/dL (6.4-8.9)
== END 2024-03-27 23:59 | disposition home or self-care (01) ==
LOC: LAB.R 08:00
PROVIDERS: ATTEND Registered Nurse
DX: E87.6 Hypokalemia (principal); I48.20 Chronic atrial fibrillation, unspecified; M62.81 Muscle weakness (generalized)
CPT/HCPCS: 80053; 83735; 85025

== ENCOUNTER 2024-04-03 08:00 | Outpatient (CLI) | payer MEDICARE, MEDICAID ==
[2024-04-03 12:32] LABS: BASOPHILS % (AUTO) 0.7 %; EOSINOPHILS # (AUTO) 0.1 10^3/uL (0.0-0.7); EOSINOPHILS % (AUTO) 3.3 %; HCT - HEMATOCRIT 26.3 % (37.0-47.0); HGB - HEMOGLOBIN 8.4 g/dL (12.0-16.0); LYMPHOCYTES # (AUTO) 1.1 10^3/uL (1.5-3.5); LYMPHOCYTES % (AUTO) 26.6 %; MEAN CORPUSCULAR HEMOGLOBIN 33.5 pg (27.0-31.0); MEAN CORPUSCULAR HGB CONC 31.9 g/dL (32.0-36.0); MEAN CORPUSCULAR VOLUME 104.8 fL (81.0-99.0); MEAN PLATELET VOLUME 9.9 fL (7.9-10.8); MONOCYTES # (AUTO) 0.3 10^3/uL (0.0-1.0); MONOCYTES % (AUTO) 6.3 %; NEUTROPHILS # (AUTO) 2.7 10^3/uL (1.5-6.6); NEUTROPHILS % (AUTO) 63.1 %; PLT - PLATELET COUNT 234 10^3/uL (130-450); RED BLOOD COUNT 2.51 10^6/uL (4.20-5.40); RED CELL DISTRIBUTION WIDTH 11.8 % (12.0-15.0); WHITE BLOOD COUNT 4.3 x10^3/uL (4.8-10.8)
[2024-04-03 12:45] LABS: ALBUMIN 3.7 g/dL (3.2-5.5); ALBUMIN/GLOBULIN RATIO 1.3 (1.0-2.2); BILIRUBIN,TOTAL 0.2 mg/dL (0.2-1.0); CALCIUM 9.4 mg/dL (8.5-10.3); CREATININE 2.4 mg/dL (0.6-1.3); MAGNESIUM 1.8 mg/dL (1.7-2.3); POTASSIUM 4.4 mmol/L (3.5-4.5); TOTAL PROTEIN 6.5 g/dL (6.4-8.9)
== END 2024-04-03 23:59 | disposition home or self-care (01) ==
LOC: LAB.R 08:00
DX: I10 Essential (primary) hypertension (principal); I48.20 Chronic atrial fibrillation, unspecified; E61.2 Magnesium deficiency
CPT/HCPCS: 80053; 83735; 85025

== ENCOUNTER 2024-04-17 08:00 | Outpatient (CLI) | payer MEDICARE, MEDICAID ==
[2024-04-17 18:38] LABS: EOSINOPHILS # (AUTO) 0.1 10^3/uL (0.0-0.7); EOSINOPHILS % (AUTO) 2.8 %; HCT - HEMATOCRIT 27.4 % (37.0-47.0); HGB - HEMOGLOBIN 8.7 g/dL (12.0-16.0); LYMPHOCYTES # (AUTO) 1.4 10^3/uL (1.5-3.5); LYMPHOCYTES % (AUTO) 34.9 %; MEAN CORPUSCULAR HEMOGLOBIN 32.8 pg (27.0-31.0); MEAN CORPUSCULAR HGB CONC 31.8 g/dL (32.0-36.0); MEAN CORPUSCULAR VOLUME 103.4 fL (81.0-99.0); MEAN PLATELET VOLUME 9.7 fL (7.9-10.8); MONOCYTES # (AUTO) 0.3 10^3/uL (0.0-1.0); MONOCYTES % (AUTO) 7.4 %; NEUTROPHILS # (AUTO) 2.1 10^3/uL (1.5-6.6); NEUTROPHILS % (AUTO) 53.6 %; PLT - PLATELET COUNT 272 10^3/uL (130-450); RED BLOOD COUNT 2.65 10^6/uL (4.20-5.40); RED CELL DISTRIBUTION WIDTH 11.6 % (12.0-15.0); WHITE BLOOD COUNT 3.9 x10^3/uL (4.8-10.8)
[2024-04-17 19:09] LABS: ALBUMIN 3.7 g/dL (3.2-5.5); ALBUMIN/GLOBULIN RATIO 1.1 (1.0-2.2); BILIRUBIN,TOTAL 0.2 mg/dL (0.2-1.0); CALCIUM 9.7 mg/dL (8.5-10.3); CREATININE 2.5 mg/dL (0.6-1.3); POTASSIUM 4.5 mmol/L (3.5-4.5)
== END 2024-04-17 23:59 | disposition home or self-care (01) ==
LOC: LAB.R 08:00
PROVIDERS: ATTEND Registered Nurse
DX: I10 Essential (primary) hypertension (principal); I48.20 Chronic atrial fibrillation, unspecified; E61.2 Magnesium deficiency
CPT/HCPCS: 80053; 83735; 85025

== ENCOUNTER 2024-04-20 11:41 | Outpatient (CLI) | payer MEDICARE, MEDICAID ==
--- NOTE | 2024-04-20 20:03 | XRAY Report ---
PROCEDURE: Shoulder 2+V LT INDICATIONS: LEFT SHOULDER PAIN TECHNIQUE: 3 views of the shoulder were acquired. COMPARISON: None. FINDINGS: Bones: No acute fractures or dislocations. No suspicious bony lesions. Visualized ribs appear inta ct. Severe joint space narrowing seen in the glenohumeral joint with full-thickness joint space marcos rowing, subchondral sclerosis, and marginal osteophytes. Moderate acromioclavicular joint osteoarthro sis. Soft tissues: No suspicious soft tissue calcifications. The visualized lungs are within normal limi ts. Left chest Port-A-Cath. IMPRESSION: Severe glenohumeral osteoarthrosis and moderate acromioclavicular osteoarthrosis. Reviewed by: Edgar Renteria MD on 04/20/2024 8:02 PM PDT Approved by: Edgar Renteria MD on 04/20/2024 8:02 PM PDT Station ID: [id number]
== END 2024-04-20 11:42 | disposition home or self-care (01) ==
LOC: DI 11:41
PROVIDERS: ATTEND Family Medicine
DX: M19.012 Primary osteoarthritis, left shoulder (principal)

== ENCOUNTER 2024-04-20 15:19 | Outpatient (CLI) | payer MEDICARE, MEDICAID | END 2024-04-20 23:59 | disposition critical access hospital (66) | LOC: EMS 15:19 | DX: R06.02 Shortness of breath (principal); R09.89 Other specified symptoms and signs involving the circulatory and respiratory systems; R63.8 Other symptoms and signs concerning food and fluid intake | CPT/HCPCS: A0425; A0427 ==

== ENCOUNTER 2024-04-20 15:24 | Emergency (ER) | payer MEDICARE, MEDICAID ==
--- NOTE | 2024-04-20 15:27 | ED Physician Documentation ---
History of Present Illness - Stated complaint Stated Complaint: NOT FEELING WELL - Additonal information Additional information: 68-year-old female with history of hypertension, atrial fibrillation, COPD, sleep apnea, depression, anxiety, osteoarthritis, cholecystectomy. [facility]ident of [facility] nursing facility staff called 911 because patient was found to be pale, shaky, Patient reports feeling generalized unwell and malaise. Patient is normally on room air at baseline and Was found to be satting around 80% on room air. Patient had a lithotripsy at [facility] yesterday , Afebrile upon arrival. Patient says that the Lithotripsy was To look for cancer cells I do not see any 2 polyps were removed. Patient satting 100% on room air in the emergency department and her hands are found to be quite cold. Foreignestrellita says that her blood pressure was 88/58 at nursing facility upon arrival to the emergency department blood pressure is 107/62. Patient is mentating well Patient is also found to have a right upper extremity PICC line she is overall poor historian and when I ask her why she has a PICC she doesnt know. 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 : None HEENT: None Psych: Depression, Anxiety, ADD/ADHD Musculoskeletal: Osteoarthritis Derm: None - Past Surgical History Past Surgical History: Yes General: Cholecystectomy Ortho: Knee replacement /SECOND HELPER: Mastectomy, Other HEENT: Cataracts - Present Medications Home Medications: Ambulatory Orders Medication Instructions Recorded Confirmed Acetaminophen [Tylenol] 650 mg PO Q4HR PRN tab 07/20/23 01/10/24 Buspirone HCl 15 mg PO BID #0 07/20/23 01/10/24 PARoxetine [Paxil] 40 mg PO HS #0 07/20/23 01/10/24 buPROPion HCL [Bupropion HCl Sr] 150 mg PO BID #0 07/20/23 01/10/24 dilTIAZem HCL [Diltiazem 24Hr ER 120 mg PO DAILY #0 07/20/23 01/10/24 (LA)] Apixaban [Eliquis] 2.5 mg PO BID 12/31/23 01/10/24 Ferrous Sulfate 325 mg PO DAILY 12/31/23 01/10/24 Lisinopril [Zestril] 10 mg PO DAILY 12/31/23 01/10/24 Mirtazapine 7.5 mg PO DAILY 12/31/23 01/10/24 Potassium Chloride [K-Dur] 20 meq PO DAILY 12/31/23 01/10/24 Prochlorperazine [Compazine] 10 mg PO Q6H PRN 12/31/23 01/10/24 cephALEXin [Keflex] 500 mg PO Q6H 7 Days #28 cap 04/20/24 - Allergies Allergies/Adverse Reactions: Allergies Allergy/AdvReac Type Severity Reaction Status Date / Time Sulfa (Sulfonamide Allergy Itching Verified 04/20/24 15:51 Antibiotics) meloxicam AdvReac Unknown Verified 04/20/24 15:51 - Social History Does the pt smoke?: Yes Smoking Status: Current every day smoker Does the pt drink ETOH?: No Does the pt have substance abuse?: No - Immunizations Immunizations are current?: Yes - POLST Patient has POLST: No PD ED PE NORMAL - Vitals Vital signs reviewed: Yes - General General: Alert and oriented X 3, No acute distress, Well developed/nourished, Other (obese) - HEENT HEENT: Atraumatic - Cardiac Cardiac: RRR - Respiratory Respiratory: No respiratory distress, Clear bilaterally - Abdomen Abdomen: Normal bowel sounds, Soft, Non tender, No organomegaly - Back Back: No CVA TTP - Derm Derm: Normal color, Warm and dry, No rash - Extremities Extremities: No edema, No calf tenderness / cord - Neuro Neuro: Alert and oriented X 3, machine molder squeeze 2-12 intact, No motor deficit, No sensory deficit, Normal speech Eye Opening: Spontaneous Motor: Obeys Commands Verbal: Oriented GCS Score: 15 - Psych Psych: Normal mood Results - Vitals Vitals: Vital Signs - 24 hr 04/20/24 04/20/24 04/20/24 15:43 17:50 18:49 Temperature 36.9 C Heart Rate 91 93 88 Respiratory 18 18 18 Rate Blood Pressure 107/62 102/71 104/73 O2 Saturation 100 99 98 Oxygen O2 Source Room air - EKG (time done) 1606 EKG releavant findings:: EKG personally interpreted by author of this note. Relevant findings are: Rate: Rate (enter#) (94) Rhythm: NSR [place]: Normal Intervals: Normal VA QRS: Normal, Low voltage Ischemia: Normal ST segments Computer interpretation: Agree with computer - Labs Labs: Microbiology 04/20/24 16:48 Urine Culture - Preliminary Urine,Catheterized Pseudomonas Aeruginosa Laboratory Tests 04/20/24 04/20/24 04/20/24 15:41 15:41 16:48 WBC 8.3 RBC 2.66 L Hgb 9.1 L Hct 27.5 L MCV 103.4 H MCH 34.2 H MCHC 33.1 RDW 11.6 L Plt Count 255 MPV 9.2 Neut # (Auto) 7.1 H Lymph # (Auto) 0.6 L Sunflower # (Auto) 0.5 Eos # (Auto) 0.0 Baso # (Auto) 0.1 Absolute Nucleated RBC 0.00 Nucleated RBC % 0.0 Sodium 135 Potassium 4.4 Chloride 99 L Carbon Dioxide 29 Anion Gap 7.0 BUN 29 H Creatinine 2.1 H Estimated GFR (MDRD) 23 L Glucose 104 Calcium 9.6 Magnesium 1.6 L Total Bilirubin 0.3 AST 12 ALT 8 L Alkaline Phosphatase 74 Total Protein 7.0 Albumin 3.7 Globulin 3.3 Albumin/Globulin Ratio 1.1 Lipase 16 Urine Color BROWN Urine Clarity CLOUDY Urine pH 6.5 Ur Specific [place] 1.020 Urine Protein >=300 H Urine Glucose (UA) NEGATIVE Urine Ketones NEGATIVE Urine Occult Blood LARGE H Urine Nitrite POSITIVE H Urine Bilirubin NEGATIVE Urine Urobilinogen 0.2 (NORMAL) Ur Leukocyte Esterase LARGE H Urine RBC TNTC H Urine WBC >25 H Ur Squamous Epith Cells NONE SEEN Urine Bacteria Many H Ur Microscopic Review INDICATED Urine Culture Comments INDICATED PD Medical Decision Making - ED course ED course: 68-year-old female presents emergency department for generalized unwell feeling that started today. Patient is overall poor historian she is alert and oriented x 4 but says that she is feeling generalized malaise and unwell. Labs are complete for further evaluation she does have anemia hemoglobin 9.1 today but previous visits as of a couple days ago patient's hemoglobin was found to be in the eights. No leukocytosis no significant electrolyte abnormalities she does have a mild RISA BUN 29 but as of a couple days ago her BUN was 36 her kidney function has actually significantly improved. GFR 23 today as of a couple days ago her GFR was 19. She denies any CVA tenderness or discomfort make me less suspicious for possible pyelonephritis. Urinalysis was complete for further evaluation and patient did have a large amount of leukocytes and nitrites urine was sent for further cultures she started on Keflex here in the emergency department and Keflex sent to her preferred pharmacy. I believe patient is feeling unwell because of a urinary tract infection. In regards to the patient's hypotension and the hypoxia I am not entirely sure how [facility] was checking her blood pressure or her pulse ox her hands are quite cold but she did not show any hypoxia here in the emergency department and hemodynamically she remained stable throughout entire visit. She is sent back to [facility] via BLS all questions have been answered patient safe for discharge at this time return precautions given. Departure - Departure Disposition: 01 Home, Self Care Clinical Impression: UTI (urinary tract infection) Qualifiers: Urinary tract infection type: acute cystitis Hematuria presence: without hematuria Qualified Code(s): N30.00 - Acute cystitis without hematuria Instructions: Urinary Tract Infecs Women Prescriptions: cephALEXin [Keflex] 500 mg PO Q6H 7 Days #28 cap Comments: Thank for trusting us with your care. We have completed some basic labs as well as a urinalysis and it appears that you have a urinary tract infection. We have started you on Keflex here in the emergency department sent to prescription of Keflex to your preferred pharmacy you take this twice a day for the next 7 days. Please follow-up with your primary care provider as needed come back and if you are starting to get any worse over the next couple days as you are taking your antibiotics such as worsening fevers or chills, back pain, nausea vomiting or any other concerning emergent symptoms. Forms: PCP List Discharge Date/Time: 04/20/24 18:49
[2024-04-20 15:49] LABS: BASOPHILS # (AUTO) 0.1 10^3/uL (0.0-0.1); BASOPHILS % (AUTO) 0.6 %; EOSINOPHILS % (AUTO) 0.2 %; HCT - HEMATOCRIT 27.5 % (37.0-47.0); HGB - HEMOGLOBIN 9.1 g/dL (12.0-16.0); LYMPHOCYTES # (AUTO) 0.6 10^3/uL (1.5-3.5); LYMPHOCYTES % (AUTO) 7.2 %; MEAN CORPUSCULAR HEMOGLOBIN 34.2 pg (27.0-31.0); MEAN CORPUSCULAR HGB CONC 33.1 g/dL (32.0-36.0); MEAN CORPUSCULAR VOLUME 103.4 fL (81.0-99.0); MEAN PLATELET VOLUME 9.2 fL (7.9-10.8); MONOCYTES # (AUTO) 0.5 10^3/uL (0.0-1.0); MONOCYTES % (AUTO) 5.5 %; NEUTROPHILS # (AUTO) 7.1 10^3/uL (1.5-6.6); NEUTROPHILS % (AUTO) 86.1 %; PLT - PLATELET COUNT 255 10^3/uL (130-450); RED BLOOD COUNT 2.66 10^6/uL (4.20-5.40); RED CELL DISTRIBUTION WIDTH 11.6 % (12.0-15.0); WHITE BLOOD COUNT 8.3 x10^3/uL (4.8-10.8)
[2024-04-20 15:53] LABS: MAGNESIUM 1.6 mg/dL (1.7-2.3)
[2024-04-20 16:00] LABS: ALBUMIN 3.7 g/dL (3.2-5.5); ALBUMIN/GLOBULIN RATIO 1.1 (1.0-2.2); BILIRUBIN,TOTAL 0.3 mg/dL (0.2-1.0); CALCIUM 9.6 mg/dL (8.5-10.3); CREATININE 2.1 mg/dL (0.6-1.3); POTASSIUM 4.4 mmol/L (3.5-4.5)
[2024-04-20 16:53] LABS: BILIRUBIN,URINE NEGATIVE (NEGATIVE); GLUCOSE, URINE (UA) NEGATIVE (NEGATIVE); KETONES,URINE (UA) NEGATIVE (NEGATIVE); LEUKOCYTE ESTERASE, URINE LARGE (NEGATIVE); NITRITE,URINE POSITIVE (NEGATIVE); OCCULT BLOOD,URINE LARGE (NEGATIVE); PH,URINE 6.5 PH (5.0-7.5); PROTEIN,URINE >=300 mg/dL (NEGATIVE); UROBILINOGEN,URINE 0.2 (NORMAL) E.U./dL (NORMAL)
[2024-04-20 16:56] LABS: CLARITY,URINE CLOUDY (CLEAR)
[2024-04-20 17:05] LABS: BACTERIA,URINE Many /HPF (None Seen); RBC,URINE TNTC /HPF (0-5); SQUAMOUS EPITHELIAL CELL,UR NONE SEEN (<= Few); WBC,URINE >25 /HPF (0-5)
[2024-04-20] MEDS: cephALEXin 250 MG CAPSULE PO STA (17:36)
[2024-04-20 18:54] VITALS: BP 104/73; O2SAT 98
--- NOTE | 2024-04-22 13:46 | ED Physician Documentation ---
ED Addendum - Addendum Addendum: 04/22/24 13:45 Culture reviewed, urine was positive for Pseudomonas. Keflex would not be expected to treat this. I spoke with the nurse at [facility] and advise she stop the cephalexin. I sent a prescription for renally dosed ciprofloxacin, 500 mg p.o. daily #5 to [facility].
== END 2024-04-20 18:49 | disposition home or self-care (01) ==
LOC: EDUNIT# → ED 15:24
DX: N30.00 Acute cystitis without hematuria (principal); B96.5 Pseudomonas (aeruginosa) (mallei) (pseudomallei) as the cause of diseases classified elsewhere; F17.200 Nicotine dependence, unspecified, uncomplicated; M19.012 Primary osteoarthritis, left shoulder
CPT/HCPCS: 36415; 51701; 73030; 80053; 81001; 83690; 83735; 85025; 87086; 87181; 93005; 99284; A9270; 81003

== ENCOUNTER 2024-04-20 18:48 | Outpatient (CLI) | payer MEDICARE, MEDICAID | END 2024-04-20 23:59 | LOC: EMS 18:48 | PROVIDERS: ATTEND Nurse Practitioner | DX: N39.0 Urinary tract infection, site not specified (principal); Z74.01 Bed confinement status | CPT/HCPCS: A0425; A0428 ==

== ENCOUNTER 2024-04-24 08:00 | Outpatient (CLI) | payer MEDICARE, MEDICAID ==
[2024-04-24 15:35] LABS: BASOPHILS % (AUTO) 0.7 %; EOSINOPHILS # (AUTO) 0.2 10^3/uL (0.0-0.7); EOSINOPHILS % (AUTO) 3.7 %; HCT - HEMATOCRIT 25.6 % (37.0-47.0); HGB - HEMOGLOBIN 8.4 g/dL (12.0-16.0); LYMPHOCYTES # (AUTO) 1.1 10^3/uL (1.5-3.5); LYMPHOCYTES % (AUTO) 23.1 %; MEAN CORPUSCULAR HEMOGLOBIN 33.6 pg (27.0-31.0); MEAN CORPUSCULAR HGB CONC 32.8 g/dL (32.0-36.0); MEAN CORPUSCULAR VOLUME 102.4 fL (81.0-99.0); MONOCYTES # (AUTO) 0.4 10^3/uL (0.0-1.0); MONOCYTES % (AUTO) 8.6 %; NEUTROPHILS # (AUTO) 2.9 10^3/uL (1.5-6.6); NEUTROPHILS % (AUTO) 63.5 %; PLT - PLATELET COUNT 323 10^3/uL (130-450); RED CELL DISTRIBUTION WIDTH 11.7 % (12.0-15.0); WHITE BLOOD COUNT 4.5 x10^3/uL (4.8-10.8)
[2024-04-24 16:06] LABS: ALBUMIN 3.5 g/dL (3.2-5.5); ALBUMIN/GLOBULIN RATIO 1.2 (1.0-2.2); BILIRUBIN,TOTAL 0.2 mg/dL (0.2-1.0); CALCIUM 9.1 mg/dL (8.5-10.3); MAGNESIUM 1.7 mg/dL (1.7-2.3); POTASSIUM 4.3 mmol/L (3.5-4.5); TOTAL PROTEIN 6.5 g/dL (6.4-8.9)
== END 2024-04-24 23:59 | disposition home or self-care (01) ==
LOC: LAB.R 08:00
DX: I10 Essential (primary) hypertension (principal); I48.20 Chronic atrial fibrillation, unspecified; E61.2 Magnesium deficiency
CPT/HCPCS: 80053; 83735; 85025

== ENCOUNTER 2024-05-01 08:00 | Outpatient (CLI) | payer MEDICARE, MEDICAID ==
[2024-05-01 16:15] LABS: BASOPHILS # (AUTO) 0.1 10^3/uL (0.0-0.1); BASOPHILS % (AUTO) 0.8 %; EOSINOPHILS # (AUTO) 0.1 10^3/uL (0.0-0.7); EOSINOPHILS % (AUTO) 1.2 %; HGB - HEMOGLOBIN 9.2 g/dL (12.0-16.0); LYMPHOCYTES # (AUTO) 1.1 10^3/uL (1.5-3.5); LYMPHOCYTES % (AUTO) 17.2 %; MEAN CORPUSCULAR HEMOGLOBIN 33.6 pg (27.0-31.0); MEAN CORPUSCULAR HGB CONC 32.9 g/dL (32.0-36.0); MEAN CORPUSCULAR VOLUME 102.2 fL (81.0-99.0); MEAN PLATELET VOLUME 9.2 fL (7.9-10.8); MONOCYTES # (AUTO) 0.5 10^3/uL (0.0-1.0); MONOCYTES % (AUTO) 7.5 %; NEUTROPHILS # (AUTO) 4.7 10^3/uL (1.5-6.6); PLT - PLATELET COUNT 367 10^3/uL (130-450); RED BLOOD COUNT 2.74 10^6/uL (4.20-5.40); RED CELL DISTRIBUTION WIDTH 11.9 % (12.0-15.0); WHITE BLOOD COUNT 6.4 x10^3/uL (4.8-10.8)
[2024-05-01 16:30] LABS: ALBUMIN 3.7 g/dL (3.2-5.5); ALBUMIN/GLOBULIN RATIO 1.2 (1.0-2.2); BILIRUBIN,TOTAL 0.3 mg/dL (0.2-1.0); CALCIUM 9.4 mg/dL (8.5-10.3); MAGNESIUM 1.9 mg/dL (1.7-2.3); POTASSIUM 4.2 mmol/L (3.5-4.5); TOTAL PROTEIN 6.8 g/dL (6.4-8.9)
== END 2024-05-01 23:59 | disposition home or self-care (01) ==
LOC: LAB.R 08:00
PROVIDERS: ATTEND Family Medicine
DX: I10 Essential (primary) hypertension (principal); I48.20 Chronic atrial fibrillation, unspecified; E61.2 Magnesium deficiency
CPT/HCPCS: 80053; 83735; 85025

== ENCOUNTER 2024-05-09 07:11 | Outpatient (CLI) | payer MEDICARE, MEDICAID ==
[2024-05-09 07:36] LABS: BASOPHILS # (AUTO) 0.1 10^3/uL (0.0-0.1); BASOPHILS % (AUTO) 1.1 %; EOSINOPHILS # (AUTO) 0.1 10^3/uL (0.0-0.7); EOSINOPHILS % (AUTO) 1.3 %; HCT - HEMATOCRIT 27.8 % (37.0-47.0); HGB - HEMOGLOBIN 9.1 g/dL (12.0-16.0); LYMPHOCYTES # (AUTO) 1.1 10^3/uL (1.5-3.5); LYMPHOCYTES % (AUTO) 20.3 %; MEAN CORPUSCULAR HEMOGLOBIN 33.5 pg (27.0-31.0); MEAN CORPUSCULAR HGB CONC 32.7 g/dL (32.0-36.0); MEAN CORPUSCULAR VOLUME 102.2 fL (81.0-99.0); MEAN PLATELET VOLUME 10.3 fL (7.9-10.8); MONOCYTES # (AUTO) 0.4 10^3/uL (0.0-1.0); MONOCYTES % (AUTO) 6.6 %; NEUTROPHILS # (AUTO) 3.8 10^3/uL (1.5-6.6); NEUTROPHILS % (AUTO) 70.5 %; PLT - PLATELET COUNT 321 10^3/uL (130-450); RED BLOOD COUNT 2.72 10^6/uL (4.20-5.40); RED CELL DISTRIBUTION WIDTH 11.9 % (12.0-15.0); WHITE BLOOD COUNT 5.3 x10^3/uL (4.8-10.8)
[2024-05-09 08:10] LABS: ALBUMIN 3.7 g/dL (3.2-5.5); ALBUMIN/GLOBULIN RATIO 1.2 (1.0-2.2); BILIRUBIN,TOTAL 0.3 mg/dL (0.2-1.0); CALCIUM 9.6 mg/dL (8.5-10.3); CREATININE 1.9 mg/dL (0.6-1.3); MAGNESIUM 1.9 mg/dL (1.7-2.3); POTASSIUM 4.4 mmol/L (3.5-4.5); TOTAL PROTEIN 6.7 g/dL (6.4-8.9)
== END 2024-05-09 07:12 | disposition home or self-care (01) ==
LOC: LAB.R 07:11
PROVIDERS: ATTEND Family Medicine
DX: I10 Essential (primary) hypertension (principal); E61.2 Magnesium deficiency
CPT/HCPCS: 80053; 83735; 85025

== ENCOUNTER 2024-05-15 08:00 | Outpatient (CLI) | payer MEDICARE, MEDICAID ==
[2024-05-15 11:23] LABS: BASOPHILS % (AUTO) 0.7 %; EOSINOPHILS % (AUTO) 0.5 %; HCT - HEMATOCRIT 28.5 % (37.0-47.0); HGB - HEMOGLOBIN 9.1 g/dL (12.0-16.0); LYMPHOCYTES # (AUTO) 0.8 10^3/uL (1.5-3.5); LYMPHOCYTES % (AUTO) 14.8 %; MEAN CORPUSCULAR HEMOGLOBIN 32.5 pg (27.0-31.0); MEAN CORPUSCULAR HGB CONC 31.9 g/dL (32.0-36.0); MEAN CORPUSCULAR VOLUME 101.8 fL (81.0-99.0); MEAN PLATELET VOLUME 9.8 fL (7.9-10.8); MONOCYTES # (AUTO) 0.5 10^3/uL (0.0-1.0); MONOCYTES % (AUTO) 8.4 %; NEUTROPHILS # (AUTO) 4.2 10^3/uL (1.5-6.6); NEUTROPHILS % (AUTO) 75.2 %; PLT - PLATELET COUNT 263 10^3/uL (130-450); RED CELL DISTRIBUTION WIDTH 12.1 % (12.0-15.0); WHITE BLOOD COUNT 5.6 x10^3/uL (4.8-10.8)
[2024-05-15 11:33] LABS: ALBUMIN 3.5 g/dL (3.2-5.5); ALBUMIN/GLOBULIN RATIO 1.1 (1.0-2.2); BILIRUBIN,TOTAL 0.2 mg/dL (0.2-1.0); CALCIUM 9.4 mg/dL (8.5-10.3); CREATININE 1.8 mg/dL (0.6-1.3); MAGNESIUM 1.9 mg/dL (1.7-2.3); POTASSIUM 4.1 mmol/L (3.5-4.5); TOTAL PROTEIN 6.6 g/dL (6.4-8.9)
[2024-05-15 11:54] LABS: MICROALBUM/CREATININE RATIO,UR 294.6 ug/mg (<30.0); MICROALBUMIN,URINE 16.5 mg/dL
== END 2024-05-15 23:59 | disposition home or self-care (01) ==
LOC: LAB.R 08:00
PROVIDERS: ATTEND Family Medicine
DX: I10 Essential (primary) hypertension (principal); I48.20 Chronic atrial fibrillation, unspecified; E61.2 Magnesium deficiency; R80.9 Proteinuria, unspecified
CPT/HCPCS: 80053; 82043; 82570; 83735; 85025

== ENCOUNTER 2024-05-22 08:00 | Outpatient (CLI) | payer MEDICARE, MEDICAID ==
[2024-05-22 17:10] LABS: BASOPHILS % (AUTO) 0.3 %; EOSINOPHILS % (AUTO) 0.2 %; HCT - HEMATOCRIT 28.2 % (37.0-47.0); HGB - HEMOGLOBIN 9.1 g/dL (12.0-16.0); LYMPHOCYTES # (AUTO) 0.8 10^3/uL (1.5-3.5); LYMPHOCYTES % (AUTO) 12.3 %; MEAN CORPUSCULAR HGB CONC 32.3 g/dL (32.0-36.0); MEAN CORPUSCULAR VOLUME 102.2 fL (81.0-99.0); MEAN PLATELET VOLUME 9.9 fL (7.9-10.8); MONOCYTES # (AUTO) 0.5 10^3/uL (0.0-1.0); MONOCYTES % (AUTO) 7.4 %; NEUTROPHILS # (AUTO) 5.3 10^3/uL (1.5-6.6); NEUTROPHILS % (AUTO) 79.5 %; PLT - PLATELET COUNT 324 10^3/uL (130-450); RED BLOOD COUNT 2.76 10^6/uL (4.20-5.40); RED CELL DISTRIBUTION WIDTH 12.4 % (12.0-15.0); WHITE BLOOD COUNT 6.6 x10^3/uL (4.8-10.8)
[2024-05-22 17:20] LABS: ALBUMIN 3.3 g/dL (3.2-5.5); BILIRUBIN,TOTAL 0.3 mg/dL (0.2-1.0); CALCIUM 9.1 mg/dL (8.5-10.3); CREATININE 1.6 mg/dL (0.6-1.3); MAGNESIUM 1.8 mg/dL (1.7-2.3); POTASSIUM 4.3 mmol/L (3.5-4.5); TOTAL PROTEIN 6.5 g/dL (6.4-8.9)
== END 2024-05-22 23:59 | disposition home or self-care (01) ==
LOC: LAB.R 08:00
DX: I10 Essential (primary) hypertension (principal); I48.20 Chronic atrial fibrillation, unspecified; E61.2 Magnesium deficiency
CPT/HCPCS: 80053; 83735; 85025

== ENCOUNTER 2024-05-29 08:00 | Outpatient (CLI) | payer MEDICARE, MEDICAID ==
[2024-05-29 11:55] LABS: EOSINOPHILS % (AUTO) 0.1 %; HCT - HEMATOCRIT 30.5 % (37.0-47.0); HGB - HEMOGLOBIN 9.5 g/dL (12.0-16.0); LYMPHOCYTES # (AUTO) 0.5 10^3/uL (1.5-3.5); LYMPHOCYTES % (AUTO) 6.2 %; MEAN CORPUSCULAR HEMOGLOBIN 32.8 pg (27.0-31.0); MEAN CORPUSCULAR HGB CONC 31.1 g/dL (32.0-36.0); MEAN CORPUSCULAR VOLUME 105.2 fL (81.0-99.0); MEAN PLATELET VOLUME 9.5 fL (7.9-10.8); MONOCYTES # (AUTO) 0.4 10^3/uL (0.0-1.0); MONOCYTES % (AUTO) 5.2 %; NEUTROPHILS # (AUTO) 7.5 10^3/uL (1.5-6.6); PLT - PLATELET COUNT 340 10^3/uL (130-450); RED CELL DISTRIBUTION WIDTH 13.1 % (12.0-15.0); WHITE BLOOD COUNT 8.5 x10^3/uL (4.8-10.8)
[2024-05-29 12:07] LABS: ALBUMIN 3.2 g/dL (3.2-5.5); ALBUMIN/GLOBULIN RATIO 1.1 (1.0-2.2); BILIRUBIN,TOTAL 0.2 mg/dL (0.2-1.0); CALCIUM 8.6 mg/dL (8.5-10.3); CREATININE 1.3 mg/dL (0.6-1.3); MAGNESIUM 1.7 mg/dL (1.7-2.3); POTASSIUM 4.3 mmol/L (3.5-4.5)
== END 2024-05-29 23:59 | disposition home or self-care (01) ==
LOC: LAB.R 08:00
PROVIDERS: ATTEND Registered Nurse
DX: I10 Essential (primary) hypertension (principal); I48.20 Chronic atrial fibrillation, unspecified; E61.2 Magnesium deficiency
CPT/HCPCS: 80053; 83735; 85025

== ENCOUNTER 2024-06-05 08:00 | Outpatient (CLI) | payer MEDICARE, MEDICAID ==
[2024-06-05 17:39] LABS: HCT - HEMATOCRIT 28.1 % (37.0-47.0); LYMPHOCYTES # (AUTO) 0.4 10^3/uL (1.5-3.5); LYMPHOCYTES % (AUTO) 5.1 %; MEAN CORPUSCULAR HEMOGLOBIN 32.8 pg (27.0-31.0); MEAN CORPUSCULAR VOLUME 102.6 fL (81.0-99.0); MEAN PLATELET VOLUME 9.5 fL (7.9-10.8); MONOCYTES # (AUTO) 0.3 10^3/uL (0.0-1.0); MONOCYTES % (AUTO) 4.5 %; NEUTROPHILS # (AUTO) 6.2 10^3/uL (1.5-6.6); NEUTROPHILS % (AUTO) 90.1 %; PLT - PLATELET COUNT 260 10^3/uL (130-450); RED BLOOD COUNT 2.74 10^6/uL (4.20-5.40); RED CELL DISTRIBUTION WIDTH 13.6 % (12.0-15.0); WHITE BLOOD COUNT 6.9 x10^3/uL (4.8-10.8)
[2024-06-05 17:53] LABS: ALBUMIN/GLOBULIN RATIO 1.1 (1.0-2.2); BILIRUBIN,TOTAL 0.3 mg/dL (0.2-1.0); CALCIUM 8.3 mg/dL (8.5-10.3); CREATININE 1.3 mg/dL (0.6-1.3); MAGNESIUM 1.6 mg/dL (1.7-2.3); POTASSIUM 3.3 mmol/L (3.5-4.5); TOTAL PROTEIN 5.7 g/dL (6.4-8.9)
== END 2024-06-05 23:59 | disposition home or self-care (01) ==
LOC: LAB.R 08:00
PROVIDERS: ATTEND Family Medicine
DX: I10 Essential (primary) hypertension (principal); I48.20 Chronic atrial fibrillation, unspecified; E61.2 Magnesium deficiency
CPT/HCPCS: 80053; 83735; 85025

== ENCOUNTER 2024-06-09 11:28 | Outpatient (CLI) | payer MEDICARE, MEDICAID ==
--- NOTE | 2024-06-09 12:10 | XRAY Report ---
PROCEDURE: Chest 2V INDICATIONS: CHEST CONGESTION TECHNIQUE: 2 views of the chest were acquired. COMPARISON: 11/26/2023. FINDINGS: Surgical changes and devices: Left chest Port-A-Cath. Right axillary clips. Lungs and pleura: Interval development of dense right apical opacity. Findings most likely represent central obstruction with collapse of the right upper lobe. Suspect significant right hilar lesion.. Right basilar pleural fluid. Mediastinum: Mediastinal contours appear normal. Heart size is normal. Bones and chest wall: No suspicious bony lesions. Overlying soft tissues appear unremarkable. IMPRESSION: Significant interval progression of disease. Likely large hilar adenopathy or mass with collapse of t he right upper lobe. There is also right basilar pleural fluid. Comment: CT chest with contrast may be helpful Reviewed by: Emerson Collado MD on 06/09/2024 12:09 PM PDT Approved by: Emerson Collado MD on 06/09/2024 12:09 PM PDT Station ID: [id number]
== END 2024-06-09 11:29 | disposition home or self-care (01) ==
LOC: DI 11:28
PROVIDERS: ATTEND Family Medicine
DX: J94.8 Other specified pleural conditions (principal); R91.8 Other nonspecific abnormal finding of lung field

== ENCOUNTER 2024-06-09 16:34 | Outpatient (CLI) | payer MEDICARE, MEDICAID | END 2024-06-09 16:35 | disposition critical access hospital (66) | LOC: EMS 16:34 | DX: R06.02 Shortness of breath (principal); R91.8 Other nonspecific abnormal finding of lung field | CPT/HCPCS: A0425; A0429 ==

== ENCOUNTER 2024-06-09 16:42 | Emergency (ER) | payer MEDICARE, MEDICAID ==
--- NOTE | 2024-06-09 16:56 | ED Physician Documentation ---
PD HPI DYSPNEA - Stated complaint Stated Complaint: SOA - Chief complaint Chief Complaint: Resp - History obtained from History obtained from: Patient - History of Present Illness Timing - onset: How many days ago (5) Timing - onset during: Light activity Timing - duration: Days (5) Timing - details: Gradual onset, Still present Inciting event(s): Other (has hx of abdominal and breast CA treated previously at [facility]) Improved by: Rest Worsened by: Exertion Associated symptoms: No: Fever, Cough, Wheezing, Chest pain / discomfort Similar symptoms before: Has not had sx before Recently seen: Not recently seen - Additional information Additional information: Brigida Solano is a 68-year-old female with a prior history of malignancy of the breast for which she underwent chemotherapy she also has a history of some type of abdominal cancer. She underwent chemotherapy for that as well and she is not currently on therapy for malignancy. She developed some shortness of breath at [facility] and a chest x-ray is obtained which demonstrated a collapse of the right upper lobe. She was sent to the emergency department urgently for CT scanning of the chest. Review of Systems Constitutional: denies: Fever Ears: denies: Ear pain Nose: denies: Congestion Throat: denies: Sore throat Cardiac: denies: Chest pain / pressure Respiratory: reports: Dyspnea. 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 : None HEENT: None Psych: Depression, Anxiety, ADD/ADHD Musculoskeletal: Osteoarthritis Derm: None - Past Surgical History Past Surgical History: Yes General: Cholecystectomy Ortho: Knee replacement /SOLAR DESIGN ENGINEER: Mastectomy, Other HEENT: Cataracts - Present Medications Home Medications: Ambulatory Orders Medication Instructions Recorded Confirmed Acetaminophen [Tylenol] 650 mg PO Q4HR PRN tab 07/20/23 06/09/24 Buspirone HCl 15 mg PO BID #0 07/20/23 06/09/24 PARoxetine [Paxil] 40 mg PO HS #0 07/20/23 06/09/24 buPROPion HCL [Bupropion HCl Sr] 150 mg PO BID #0 07/20/23 06/09/24 dilTIAZem HCL [Diltiazem 24Hr ER 120 mg PO DAILY #0 07/20/23 06/09/24 (LA)] Apixaban [Eliquis] 2.5 mg PO BID 12/31/23 06/09/24 Ferrous Sulfate 325 mg PO DAILY 12/31/23 06/09/24 Lisinopril [Zestril] 10 mg PO DAILY 12/31/23 06/09/24 Mirtazapine 7.5 mg PO DAILY 12/31/23 06/09/24 Potassium Chloride [K-Dur] 20 meq PO DAILY 12/31/23 06/09/24 Prochlorperazine [Compazine] 10 mg PO Q6H PRN 12/31/23 06/09/24 Tamsulosin [Flomax] 1 cap PO DAILY 06/09/24 06/09/24 - Allergies Allergies/Adverse Reactions: Allergies Allergy/AdvReac Type Severity Reaction Status Date / Time Sulfa (Sulfonamide Allergy Itching Verified 06/09/24 16:52 Antibiotics) meloxicam AdvReac Unknown Verified 06/09/24 16:52 - Social History Does the pt smoke?: Yes Smoking Status: Current every day smoker Does the pt drink ETOH?: No Does the pt have substance abuse?: No - Immunizations Immunizations are current?: Yes - POLST Patient has POLST: No PD ED PE NORMAL - Vitals Vital signs reviewed: Yes (Hypertensive mild) - General General: Alert and oriented X 3, No acute distress, Well developed/nourished - HEENT HEENT: Atraumatic, PERRL, EOMI - Neck Neck: Supple, no meningeal sign, No bony TTP - Cardiac Cardiac: RRR, No murmur - Respiratory Respiratory: No respiratory distress, Other (Diminished breath sounds bilaterally scattered rhonchi) - Abdomen Abdomen: Soft, Non tender - Back Back: No CVA TTP, No spinal TTP - Derm Derm: Normal color, Warm and dry, No rash - Extremities Extremities: No deformity, No edema - Neuro Neuro: Alert and oriented X 3, spot sprayer 2-12 intact, No motor deficit, No sensory deficit, Normal speech Eye Opening: Spontaneous Motor: Obeys Commands Verbal: Oriented GCS Score: 15 - Psych Psych: Normal mood, Normal affect Results - Vitals Vitals: Vital Signs - 24 hr 06/09/24 06/09/24 06/09/24 16:46 17:12 18:57 Temperature 36.4 C L Heart Rate 96 99 109 H Respiratory 16 17 17 Rate Blood Pressure 133/87 H 127/94 H 143/90 H O2 Saturation 92 92 96 If not protocol 2 : Oxygen Flow, liters/minute 06/09/24 06/09/24 19:30 21:00 Temperature Heart Rate 111 H 89 Respiratory 14 27 H Rate Blood Pressure 114/85 H 137/87 H O2 Saturation 97 91 L If not protocol 2 2 : Oxygen Flow, liters/minute Oxygen O2 Source Nasal cannula - Labs Labs: Laboratory Tests 06/09/24 06/09/24 06/09/24 17:04 17:04 17:04 WBC 7.6 RBC 2.90 L Hgb 9.8 L Hct 29.3 L MCV 101.0 H MCH 33.8 H MCHC 33.4 RDW 13.7 Plt Count 275 MPV 9.3 Neut # (Auto) 6.9 H Lymph # (Auto) 0.3 L [place] # (Auto) 0.4 Eos # (Auto) 0.0 Baso # (Auto) 0.0 Absolute Nucleated RBC 0.00 Nucleated RBC % 0.0 PT 14.2 H INR 1.3 H Sodium 139 Potassium 3.3 L Chloride 103 Carbon Dioxide 30 Anion Gap 6.0 BUN 36 H Creatinine 1.3 Estimated GFR (MDRD) 40 L Glucose 107 H Lactic Acid Calcium 8.4 L Total Bilirubin 0.4 AST 30 ALT 47 Alkaline Phosphatase 104 Total Protein 5.8 L Albumin 3.1 L Globulin 2.7 Albumin/Globulin Ratio 1.1 Lipase 51 06/09/24 17:04 WBC RBC Hgb Hct MCV MCH MCHC RDW Plt Count MPV Neut # (Auto) Lymph # (Auto) [place] # (Auto) Eos # (Auto) Baso # (Auto) Absolute Nucleated RBC Nucleated RBC % PT INR Sodium Potassium Chloride Carbon Dioxide Anion Gap BUN Creatinine Estimated GFR (MDRD) Glucose Lactic Acid 0.9 Calcium Total Bilirubin AST ALT Alkaline Phosphatase Total Protein Albumin Globulin Albumin/Globulin Ratio Lipase - Rads (name of study) CT chest with Relevant Findings:: Prelim report reviewed (Impression: Significant progression of disease in the right chest, mediastinum, lower neck, and upper abdomen.), EMP independent interpretation of test, See rad report PD Medical Decision Making - ED course Complexity details: reviewed old records, reviewed results, re-evaluated patient, considered differential, d/w patient Reviewed Lab Results: We reviewed a complete blood count showing a normal white blood cell count hemoglobin and hematocrit were 9.8 and 29.3 and both of these levels are similar to what the patient has had over the past 2 months. A PT was elevated at 14.2 with an INR 1.3 chemistries were remarkable for potassium low at 3.3 with remainder of the electrolytes were normal BUN is elevated at 36 similar to where the patient has had previously creatinine is 1.3 this is again similar to what the patient has had and lower than her priors from 2 months ago calcium is low at 8.4 similar to prior within the past month lactate is normal at 0.9 these laboratory values do not contribute to a specific diagnosis they do indicate the patient has chronic anemia she is on EliquisAnd the elevated INR consistent with this.She has a history of chronic renal insufficiency her creatinine is actually improved. ED course: 68-year-old Brigida Solano comes to the emergency department after a plain film x-ray shows a mass in the right upper lobe. A CT scan was recommended for further evaluation. We obtained the CT scan and there is concern for malignancy. The patient is not hypoxic on room air she does not appear to be in respiratory distress. I have indicated to the patient that she has a progression of a neoplasm and will need urgent evaluation as this appears to be consuming a portion of her lung capacity and without treatment she would likely succumb to this. . She does have a primary at [facility] who has directed her cancer care previously at [facility]. There is nothing specific we have to offer the patient here in the emergency department today. Departure - Departure Disposition: 01 Home, Self Care Clinical Impression: Malignant neoplasm metastatic to lung with unknown primary site Condition: Serious Instructions: ED Tumor [facility] Follow-Up: CHELSEA SHARMA MD [Physician No Access] - Comments: Brigida, it does look like you have had progression of metastatic disease and it does look extensive on your CAT scan. This disease is likely to cause some problem in the very near future with worsening shortness of breath. Follow-up with your primary care doctor at [facility] tomorrow to get a referral to your onc ologist for further evaluation and treatment. Forms: PCP List
[2024-06-09 17:17] LABS: HCT - HEMATOCRIT 29.3 % (37.0-47.0); HGB - HEMOGLOBIN 9.8 g/dL (12.0-16.0); LYMPHOCYTES # (AUTO) 0.3 10^3/uL (1.5-3.5); LYMPHOCYTES % (AUTO) 3.6 %; MEAN CORPUSCULAR HEMOGLOBIN 33.8 pg (27.0-31.0); MEAN CORPUSCULAR HGB CONC 33.4 g/dL (32.0-36.0); MEAN PLATELET VOLUME 9.3 fL (7.9-10.8); MONOCYTES # (AUTO) 0.4 10^3/uL (0.0-1.0); MONOCYTES % (AUTO) 5.2 %; NEUTROPHILS # (AUTO) 6.9 10^3/uL (1.5-6.6); NEUTROPHILS % (AUTO) 90.8 %; PLT - PLATELET COUNT 275 10^3/uL (130-450); RED CELL DISTRIBUTION WIDTH 13.7 % (12.0-15.0); WHITE BLOOD COUNT 7.6 x10^3/uL (4.8-10.8)
[2024-06-09 17:28] LABS: INR 1.3 (0.8-1.2); PT - PROTHROMBIN TIME 14.2 secs (9.9-12.6)
[2024-06-09 17:31] LABS: ALBUMIN 3.1 g/dL (3.2-5.5); ALBUMIN/GLOBULIN RATIO 1.1 (1.0-2.2); BILIRUBIN,TOTAL 0.4 mg/dL (0.2-1.0); CALCIUM 8.4 mg/dL (8.5-10.3); CREATININE 1.3 mg/dL (0.6-1.3); POTASSIUM 3.3 mmol/L (3.5-4.5); TOTAL PROTEIN 5.8 g/dL (6.4-8.9)
[2024-06-09] MEDS ORDERED: iohexoL-300 100 ML VIAL ONE (18:01)
[2024-06-09] MEDS: iohexoL-300 100 ML VIAL IVP ONE (18:26)
--- NOTE | 2024-06-09 21:08 | CT Report ---
PROCEDURE: Chest W/WO INDICATIONS: advancement of lung disease CONTRAST: 100ml [id number] TECHNIQUE: Pre-contrast axial 5 mm soft tissue kernel reconstructions were performed then after the administrati on of intravenous contrast, 1 mm axial images were acquired from the pulmonary apices through the pos terior costophrenic angles. Axial 5 mm soft tissue kernel reconstructions were performed as well as 8 mm axial MIP and coronal and sagittal 5 mm reformations. For radiation dose reduction, the followi ng was used: automated exposure control, adjustment of mA and/or kV according to patient size. COMPARISON: Chest x-ray performed the same day and CT 07/17/2023 FINDINGS: Image quality: Excellent. Lungs and pleura: There is a bulky right suprahilar/perihilar mass and postobstructive atelectatic ch lashay of the entire right upper lobe. There is peripheral pleural fluid. Perihilar soft tissue mass al so causes right lower lobe atelectasis to airway compression. There is a moderate-sized , dependently layering right pleural effusion. The right middle lobe is aerated. There is a thin-walled pneumatoce le. Small left pleural effusion. Pleural thickening dependently in the posterior upper and lower lobe s. Central airway is deviated to the left due to mediastinal soft tissue. There is diffuse narrowing of the right mainstem bronchus with compression of right upper and lower lobe bronchi. Left lung airw ays are patent. Mediastinum: Heart size is normal with dense mitral annular calcification. Moderate sized pericardial effusion. There is enlargement of the main pulmonary artery. Diffuse narrowing and obliteration due to extrinsic mass effect of the right upper lobe pulmonary arteries. Normal aortic caliber and contou r with minor calcification. There are several bulky mediastinal masses in the anterior mediastinum, p revascular region, AP window and a significantly in the anterior and right paratracheal regions. Thes e are confluent and not easily measured the esophagus is normal. No. Chest wall and lower neck: Bulky right supraclavicular adenopathy. Normal thyroid. Surgical clips in the right axilla. No left axillary adenopathy. The lower chest anasarca, right worse than left. The l eft chest Mediport. Bones: Severe left shoulder degenerative changes. No pathologic fractures or acute bone lesions. Upper Abdomen: Extensive heterogeneity throughout the liver suggesting innumerable liver metastases. The lateral adrenal nodules. Bulky periportal adenopathy with narrowing of the proximal portal vein. Coarse, nonobstructing left upper pole intrarenal calcification. IMPRESSION: Significant progression of disease in the right chest, mediastinum, lower neck, and upper abdomen. Reviewed by: Krupa Phan MD on 06/09/2024 9:07 PM PDT Approved by: Krupa Phan MD on 06/09/2024 9:07 PM PDT Station ID: [id number]
[2024-06-09 22:50] VITALS: BP 141/100; O2SAT 92
== END 2024-06-09 23:55 | disposition home or self-care (01) ==
LOC: EDUNIT# → ED 16:42
DX: C78.01 Secondary malignant neoplasm of right lung (principal); D63.0 Anemia in neoplastic disease; I10 Essential (primary) hypertension; I48.91 Unspecified atrial fibrillation; J44.9 Chronic obstructive pulmonary disease, unspecified; F17.200 Nicotine dependence, unspecified, uncomplicated; Z85.3 Personal history of malignant neoplasm of breast; Z85.89 Personal history of malignant neoplasm of other organs and systems; Z79.01 Long term (current) use of anticoagulants; Z79.899 Other long term (current) drug therapy
CPT/HCPCS: 36415; 71046; 71270; 80053; 83605; 83690; 85025; 85610; 87040; 99284; Q9967

== ENCOUNTER 2024-06-10 00:01 | Outpatient (CLI) | payer MEDICARE, MEDICAID | END 2024-06-10 00:02 | LOC: EMS 00:01 | PROVIDERS: ATTEND Emergency Medicine | DX: R06.02 Shortness of breath (principal); R53.1 Weakness; Z74.01 Bed confinement status | CPT/HCPCS: A0425; A0428 ==

== ENCOUNTER 2024-06-17 07:54 | Outpatient (CLI) | payer MEDICARE, MEDICAID ==
[2024-06-17 08:00] LABS: BASOPHILS % (AUTO) 0.1 %; HCT - HEMATOCRIT 30.2 % (37.0-47.0); HGB - HEMOGLOBIN 9.9 g/dL (12.0-16.0); LYMPHOCYTES # (AUTO) 0.2 10^3/uL (1.5-3.5); LYMPHOCYTES % (AUTO) 1.8 %; MEAN CORPUSCULAR HEMOGLOBIN 33.4 pg (27.0-31.0); MEAN CORPUSCULAR HGB CONC 32.8 g/dL (32.0-36.0); MEAN PLATELET VOLUME 9.5 fL (7.9-10.8); MONOCYTES # (AUTO) 0.5 10^3/uL (0.0-1.0); MONOCYTES % (AUTO) 4.4 %; NEUTROPHILS # (AUTO) 9.9 10^3/uL (1.5-6.6); NEUTROPHILS % (AUTO) 93.2 %; PLT - PLATELET COUNT 295 10^3/uL (130-450); RED BLOOD COUNT 2.96 10^6/uL (4.20-5.40); RED CELL DISTRIBUTION WIDTH 14.2 % (12.0-15.0); WHITE BLOOD COUNT 10.7 x10^3/uL (4.8-10.8)
== END 2024-06-17 07:55 | disposition home or self-care (01) ==
LOC: LAB.R 07:54
PROVIDERS: ATTEND Family Medicine
DX: I10 Essential (primary) hypertension (principal); I48.20 Chronic atrial fibrillation, unspecified
CPT/HCPCS: 80048; 85025

== ENCOUNTER 2024-06-20 10:42 | Outpatient (CLI) | payer MEDICARE, MEDICAID | END 2024-06-20 23:59 | disposition E | LOC: EMS 10:42 | DX: Z66 Do not resuscitate ==